=== PATIENT | female | born 1950 | race Caucasian/White ===

== ENCOUNTER 2019-03-12 07:12 | Outpatient (CLI) | payer MEDICARE, MEDICAID, SELFPAY ==
--- NOTE | 2019-03-12 07:23 | ECG_ITS ---
NAME OF STUDY: LEXISCAN SESTAMIBI STRESS TEST INDICATION: RM/CAROTID STENOSIS, PROCEDURE: At the baseline, the EKG revealed normal sinus rhythm with a normal ST-T's. The baseline blood pressure was 133/78 mm Hg with a heart rate of 60 beats/min. Lexiscan was infused over a period of 20 seconds. A total of 0.4 milligrams of Lexiscan was infused. The stress phase was continued for a total of 5 minutes. Heart rate at the end of the stress phase was 79 with a blood pressure 148/72. The EKG at the peak infusion revealed no significant changes. Sestamibi was injected 20 seconds after the Lexiscan infusion. Blood pressure at the end of the recovery phase was 143/68 with a heart rate of 77 per minute. CONCLUSION: 1. No significant EKG changes with the LexiScan infusion 2. No LexiScan induced chest pain or cardiac arrhythmia 3. Normal blood pressure and heart rate response 4. Sestamibi/sestamibi perfusion scan pending; see separate report. Electronically Signed On 03-13-2019 17:19:02 SERVICE DELIVERY MANAGEMENT CONSULTANT by Kenya Francis M.D. [id number]
--- NOTE | 2019-03-12 07:25 | NMCV_ITS ---
NM MIBI/MIBI Stress/Rest [id number] Constance Toussaint Age: 68 Gender: F : 1950 Exam Date: 03/12/2019 08:35 Ordering Phys: Kenya Francis MD ([email or web address]) Technologist: NAUN Zacarias Exam Location: [facility] Indications: Carotid Stenosis, dypsnea on excertion STRESS TEST Please [facility] for [facility] IMAGE PROTOCOL Rest/Stress 1 Lexiscan Day Radiopharmaceutical Dose (mCi) Administration Site Administered by Rest: Tc-99m 10.5 IV NAUN Zacarias Sestamibi Stress:Tc-99m 31.1 IV NAUN Zacarias Sestamibi Rest: 12-Mar-2019 60 Discovery 630 Stress: 12-Mar-2019 60 Discovery 630 0.4mg Lexiscan. Images obtained in supine and prone position. SPECT RESULTS Technical Quality: Good Raw Data Analysis: Normal, Breast attenuation. 38DD chest wall Image Corrections: No attenuation or motion correction applied Summed Stress Score: 0 Summed Rest Score: 2 Summed Difference Score: 0 PERFUSION FINDINGS Small area of slightly decreased tracer take was noted in the apical inferior wall region. No significant reversibility was noted in this region. FUNCTIONAL RESULTS (calculated via Gated SPECT) Stress Image LV EF (%): 76 Stress EDV (mL):83 TID: 1.11 Stress ESV (mL):20 FUNCTIONAL FINDINGS: Segmental wall motion analysis revealing no gross wall motion normalities IMPRESSIONS #1. Myocardial visually revealing a small area of persistent decreased tracer uptake in the apical anterior wall region, suggestive of myocardial scarring versus attenuation artifact. #2. Normal LV ejection fraction 76%. #3. LV wall motion analysis revealing no gross wall motion normalities. #4. Normal LV volume. No significant coronary ischemia, based on the above findings Dr Kenya Francis MD [facility] (Electronically Signed) Final Date: 12 March 2019 19:30 S
[2019-03-12 07:50] VITALS: BMI 29.2
[2019-03-12] MEDS: regadenoson 0.4 Mg/5 ml Syringe IVP (09:46)
[2019-03-12 09:48] VITALS: BP 143/68; PULSE 78
--- NOTE | 2019-03-12 12:45 | USCV_ITS ---
Constance Toussaint Age: 68 Gender: F : 1950 Exam Date: 03/12/2019 07:49 Ordering Phys: Kenya Francis MD ([email or web address]) Technologist: Sahil Eid [place] [facility] [place] [facility] [place]ication: CAROTID STENOSIS Risk Factors: Previous Vascular Surgery: Right Brachial BP: / Left Brachial BP: / Right Left Velocity (cm/s) Spectral Plaque Velocity (cm/s) Spectral Plaque Syst/Diast Broadening Syst/Diast Broadening 78.90/ 21.70 Prox CCA 76.30 / 19.60 74.90/ 15.80 Mid CCA 67.50 / 18.90 61.80/ 23.70 Distal CCA 54.30 / 17.00 45.40/ 17.10 Prox ICA 41.00 / 13.10 64.60/ 23.50 Mid ICA 64.40 / 19.40 51.20/ 21.40 Distal ICA 75.20 / 23.80 206.90 ECA 172.90 0.86 ICA/CCA 1.11 Antegrade Vertebral Antegrade 41.20/ 13.40 cm/s 50.10/ 17.50 cm/s Bi Subclavian Bi 73.80 58.10 FINDINGS Minimal plaques of the bifurcations and internal carotid arteries bilaterally. Antegrade flow in the vertebral arteries bilaterally. Elevated flow velocities in the external carotid arteries bilaterally CONCLUSIONS Minimal plaques of the bifurcations and internal carotid arteries bilaterally. Elevated flow velocities in the external carotid arteries bilaterally may suggest hemodynamically significant stenosis. No significant stenosis in the internal carotid arteries bilaterally, based on the above findings. Dr Kenya Francis MD [facility] (Electronically Signed) Final Date: 12 March 2019 19:41 S
== END 2019-03-12 07:13 | disposition home or self-care (01) ==
LOC: RAD 07:18
PROVIDERS: Family Provider Family Medicine; PCP Family Medicine; Visit Provider Internal Medicine Cardiovascular Disease
DX: I65.21 Occlusion and stenosis of right carotid artery (principal); R06.09 Other forms of dyspnea
CPT/HCPCS: 78452; 93017; 93880; A9500; J2785

== ENCOUNTER 2019-08-07 14:52 | Emergency (ER) | payer MEDICARE, MEDICAID, SELFPAY ==
--- NOTE | 2019-08-07 14:55 | XR_ITS ---
WS: [id number] XR knee RT 3V* [id number] REASON FOR EXAM: injury FINDINGS: Total knee replacement on the right satisfactory alignment. The hardware is well positioned . No evidence settling is seen. XR/XR knee RT 3V* [id number] IMPRESSION: Total knee replacement excellent alignment.
[2019-08-07 15:00] VITALS: BMI 29.7
[2019-08-07 15:03] VITALS: BP 132/75; PULSE 73; RESP 16; TEMP 36.8; O2SAT 95
--- NOTE | 2019-08-07 15:10 | W.ED.EXTPRO ---
HPI - Extremity Problem General: Chief complaint: Extremity Problem,Nontraumatic Stated complaint: R KNEE INJURY Time Seen by Provider: 08/07/19 15:00 Source: patient Mode of arrival: ambulatory Limitations: no limitations History of Present Illness: HPI Narrative: Patient comes in with right knee pain. Patient states that she felt a pop and then had pain to her right knee area when she went to get up earlier today. Patient appears well. Patient appears in no acute distress. Patient has a history of knee replacement in the right knee. Review of Systems General: Reports: 10 or more systems reviewed and unremarkable except in HPI and below Musc: Reports: joint pain (right knee) PFS ED PFSH: Family History (Updated 03/12/19 @ 07:43 by Rachel Park RN) Other CAD (coronary artery disease) Social History (Updated 03/12/19 @ 07:43 by Rachel Park RN) Smoking and tobacco status: former smoker Quit status (tobacco): has quit using tobacco Second hand smoke exposure: No Smoking risk assessment/counseling performed?: No Physical Exam Const: COMMON NORMALS: no acute distress and patient oriented x3 GENERAL APPEARANCE: cooperative HENMT: COMMON NORMALS: normocephalic, TM's normal bilaterally and Normal external nose present HEAD & SCALP: normal to inspection and normocephalic NOSE: Normal external nose present TYMPANIC MEMBRANE: TM's normal bilaterally MOUTH: Normal oral and palatal mucosa present THROAT: posterior oropharynx normal Eye: GENERAL EYE: appearance normal, both eyes and all related structures Neck/C-Spine: COMMON NORMALS: full ROM Lymph: LYMPHATIC: no lymphadenopathy noted Chest: COMMONS NORMALS: normal inspection of the chest Resp: COMMON NORMALS: normal respiratory effort EFFORT & INSPECTION: Yes able to speak in complete sentences Cardio: COMMON NORMALS: regular rate and regular rhythm RATE: regular rate RHYTHM: regular rhythm GI: COMMON NORMALS: non-tender : COMMON NORMALS: Yes no CVA tenderness BLADDER/KIDNEY EXAM: Yes no CVA tenderness Back/Pelvis: COMMON NORMALS: no CVA tenderness and thoracic and lumbar spine normal to inspection Extremity: NARRATIVE EXTREMITY EXAM: Right knee has normal range of motion. Patient does have some tenderness in the patella femoral tendon. No obvious swelling or ecchymosis is noted to the knee. Distal pulses and sensations are intact. Neuro: COMMON NORMALS: patient oriented x3 and moves all extremities Psych: COMMON NORMALS: mental status grossly normal and cooperative Skin: COMMON NORMALS: no rashes or lesions noted GENERAL SKIN EXAM: no rashes or lesions noted Course Vital Signs: Vital signs: Vital Signs Temperature 98.3 F 08/07/19 15:03 Pulse Rate 72 08/07/19 15:13 Respiratory Rate 16 08/07/19 15:13 Blood Pressure 159/80 08/07/19 15:13 Pulse Oximetry 97 08/07/19 15:13 MDM - Extremity (Nontraumatic) MDM Narrative: Medical decision making narrative: Patient comes in for evaluation of right knee pain. On exam patient has normal range of motion. No obvious swelling or ecchymosis is noted to the extremity. Differential diagnosis includes but not limited to tendinitis, derangement of knee replacement hardware, fracture, patellofemoral syndrome, dislocation of the patella. X-ray was negative for any abnormalities. Reviewed exam with patient feel that the patient probably has patellofemoral tendo pain or possibly a patellar dislocation that reduced on its own. Patient reports understanding of diagnosis and plan of care. Discharge Plan Discharge Patient Disposition: Home, Self-Care Clinical Impression: Knee pain, right Qualifiers: Chronicity: unspecified Qualified Code(s): M25.561 - Pain in right knee Patellar tendon strain Qualifiers: Encounter type: initial encounter Laterality: right Qualified Code(s): S86.811A - Strain of other muscle(s) and tendon(s) at lower leg level, right leg, initial encounter Condition: Stable Prescriptions: No Action Multiple Vitamins Tablet 1 tab PO DAILY RF: 0 hydrocodone-acetaminophen 10-325 mg tablet 1 tab PO TID PRN (Reason: Pain) RF: 0 Aspir-81 81 mg Tablet,Delayed Release (Dr/Ec) 81 mg PO DAILY RF: 0 amlodipine 10 mg tablet 10 mg PO DAILY RF: 0 metoprolol tartrate 50 mg tablet 50 mg PO BID RF: 0 vitamin B complex Tablet 1 tab PO DAILY RF: 0 gabapentin 100 mg capsule 100 mg PO TID RF: 0 lisinopril 40 mg tablet 40 mg PO DAILY RF: 0 rosuvastatin 20 mg tablet 20 mg PO BEDTIME RF: 0 Vitamin D3 25 mcg (1,000 unit) Tablet 25 mcg PO DAILY RF: 0 Belsomra 10 mg tablet 10 mg PO BEDTIME PRN (Reason: unknown) RF: 0 Discharge Orders: Discharge Order (Routine); Ordered 08/07/19 Ordered By: Segundo Hendricks Referrals: Del Galarza MD [Primary Care Provider] - Discharge Diet: Usual diet Discharge Activity: Increase activity as tolerated Activity Restrictions/Additional Instructions: Activity as tolerated. Drink plenty of water with medications. Use acetaminophen or ibuprofen for pain. Use ice or heat for further pain relief. Follow-up with primary care in 1 week for recheck. Return to the ER for high fever or worsening pain with redness and swelling, or new concerns. Coding Level of Care Code ED Polarity Tester for Chg Fwd Exam Comprehensive
[2019-08-07 15:13] VITALS: BP 159/80; PULSE 72; RESP 16; O2SAT 97
[2019-08-07 16:35] VITALS: BP 139/70; PULSE 68; RESP 16; O2SAT 96
== END 2019-08-07 16:36 | disposition home or self-care (01) ==
PROVIDERS: Emergency Provider Nurse Practitioner Family; Family Provider Family Medicine; PCP Family Medicine
DX: S76.111A Strain of right quadriceps muscle, fascia and tendon, initial encounter (principal); X58.XXXA Exposure to other specified factors, initial encounter; Z87.891 Personal history of nicotine dependence
CPT/HCPCS: 12345; 73562; 99282

== ENCOUNTER 2019-11-26 15:20 | Emergency (ER) | payer MEDICARE, MEDICAID, SELFPAY ==
[2019-11-26 15:28] VITALS: BP 180/81; PULSE 90; RESP 16; TEMP 36.9; O2SAT 92; BMI 28.6
--- NOTE | 2019-11-26 15:39 | XRR_ITS ---
PROCEDURE INFORMATION: Exam: XR Chest, 1 View Exam date and time: 11/26/2019 4:10 PM Age: 69 years old Clinical indication: Chest pain; Type not specified; Additional info: Cp TECHNIQUE: Imaging protocol: XR of the chest Views: 1 view. COMPARISON: CR Chest 1 [place] [id number] 04/11/2016 11:35 AM FINDINGS: Lungs: Unremarkable. No consolidation. Pleural space: Unremarkable. No pleural effusion. No pneumothorax. Heart/Mediastinum: Unremarkable. No cardiomegaly. Bones/joints: Unremarkable. XR/XR chest 1V portable [id number] IMPRESSION: No acute findings.
--- NOTE | 2019-11-26 15:39 | ECG_ITS ---
[facility] Test Date: 2019-11-26 Pat Name: Constance Toussaint Department: Room: Gender: Female Edge Inker: : 1950 Requested By: Delon Cordon Order Number: [id number] Mandy MD: Sravanthi Hickey M.D. Measurements Intervals [place] Rate: 86 P: 64 SD: 164 QRS: -1 QRSD: 74 T: 38 QT: 381 QTc: 456 Interpretive Statements SINUS RHYTHM WITH FREQUENT VENTRICULAR PREMATURE COMPLEXES IN A BIGEMINAL PATTERN LOW QRS VOLTAGE IN PRECORDIAL LEADS [QRS DEFLECTION < 1.0 mV IN CHEST LEADS] MINIMAL ST DEPRESSION [0.025+ mV ST DEPRESSION] Compared to ECG 10/02/2018 09:58:18 Ventricular premature complex(es) now present Low QRS voltage now present ST (T wave) deviation now present Electronically Signed On 11-27-2019 17:13:10 CDT by Sravanthi Hickey M.D. [id number]
--- NOTE | 2019-11-26 15:49 | W.ED.ARRPALP ---
HPI - Arrhythmia/Palpitations General: Chief Complaint: Arrhythmia/Palpitations Stated Complaint: palpitations, Low HR earlier Time Seen by Provider: 11/26/19 15:39 Source: patient Mode of arrival: ambulatory Limitations: no limitations History of Present Illness: HPI narrative: 69-year-old female states that over the last day she is felt like her heart rate is went up and down and is been getting very anxious over it. She states she has had palpitations and her heartbeat had went down to the 50s as well. Patient appears to be in bigeminy here at times. She denies any worsening improving factors. She denies any pain at this time. She denies any shortness of breath. Associated symptoms: Deny nausea or vomiting Review of Systems Const: Denies: fever(s), chills, body aches or change in appetite Eyes: Denies: blurry vision or eye discomfort ENMT: Denies: throat pain or dental pain Card: Reports: palpitations Resp: Denies: dyspnea GI: Denies: abdominal pain, nausea, vomiting or diarrhea : Denies: dysuria Musc: Denies: neck pain or back pain Skin/Breast: Denies: rash Neuro: Denies: headache(s) Psych: Denies: depression Cyril/Lymph: Denies: easy bruising All/Imm: Denies: urticaria PFSH ED PFSH: Surgical History History of arthroplasty of right knee Family History Other CAD (coronary artery disease) Social History Smoking and tobacco status: former smoker Quit status (tobacco): has quit using tobacco Second hand smoke exposure: No Smoking risk assessment/counseling performed?: No Alcohol intake: never Substance/Drug Use: never Physical Exam Const: COMMON NORMALS: no acute distress, patient oriented x3 and healthy appearing HENMT: COMMON NORMALS: normocephalic and atraumatic HEAD & SCALP: normocephalic and atraumatic Eye: COMMON NORMALS: Equal, round and reactive pupils present and EOMs intact bilaterally PUPIL: Yes Equal, round and reactive pupils present Neck/C-Spine: COMMON NORMALS: full ROM and supple Chest: COMMONS NORMALS: normal inspection of the chest and normal palpation of entire chest wall Resp: COMMON NORMALS: normal respiratory effort, No retractions, No use of accessory muscles and clear to auscultation bilaterally AUSCULTATION: clear to auscultation bilaterally Cardio: COMMON NORMALS: regular rate, regular rhythm and No murmurs present (Cardio) RATE: regular rate RHYTHM: regular rhythm GI: COMMON NORMALS: Normal to inspection, nondistended, normoactive bowel sounds present, Soft to palpation, non-tender and no masses PALPATION: Yes Soft to palpation Extremity: COMMON NORMALS: normal to inspection and full ROM Neuro: COMMON NORMALS: patient oriented x3, moves all extremities and no focal motor deficits Psych: COMMON NORMALS: mental status grossly normal, Normal thought process present and cooperative THOUGHT PROCESS: Normal thought process present Skin: COMMON NORMALS: no rashes or lesions noted and no wounds GENERAL SKIN EXAM: no rashes or lesions noted Course Vital Signs: Vital signs: Vital Signs Temperature 98.4 F 11/26/19 15:28 Pulse Rate 90 11/26/19 15:28 Respiratory Rate 16 11/26/19 15:28 Blood Pressure 180/81 11/26/19 15:28 Pulse Oximetry 92 11/26/19 15:28 MDM - Arrhythmia/Palpitations MDM Narrative: Medical decision making narrative: Patient presents with palpitations likely from her PVCs and being in bigeminy at times. On is negative and everything else is well-appearing here. Patient is stable for discharge and she is to follow-up with Dr. Francis in 3 to 5 days. She feels improved. Patient is to return if worsening. Lab Data: Labs: Lab Results 11/26/19 11/26/19 11/26/19 Range/Units 16:04 16:04 16:04 WBC 11.6 H (4.0-10.0) 10^3/ uL RBC 4.92 (4.1-5.3) 10^6/u L Hgb 14.3 (11.5-15.3) g/dL Hct 44.2 (37.0-47.0) % MCV 89.8 (81-99) fL MCH 29.1 (28.0-34.0) pg MCHC 32.4 (30.0-36.0) g/dL RDW 12.2 (12.1-15.1) % Plt Count 223 (130-400) 10^3/c mm MPV 11.2 H (7.4-10.4) fL Neut % (Auto) 59.9 % Lymph % (Auto) 31.1 % [place] % (Auto) 7.4 % Eos % (Auto) 1.0 % Baso % (Auto) 0.3 % Neut # (Auto) 6.92 (1.8-7.7) 10^3/u L Lymph # (Auto) 3.6 (0.8-4.8) 10^3/u L [place] # (Auto) 0.9 (0.2-0.9) 10^3/u L Eos # (Auto) 0.1 (0.0-0.8) 10^3/u L Baso # (Auto) 0.0 (0.0-0.1) 10^3/u L Nucleated RBC % (a uto) 0 % Nucleated RBCs # 0.0 /100WBC PT 12.60 (12.1-14.9) SECO NDS INR 0.92 (0.8-1.2) Sodium 141 (136-145) mmol/L Potassium 3.4 L (3.5-5.1) mmol/L Chloride 105 (98-107) mmol/L Carbon Dioxide 25 (22-29) mmol/L Anion Gap 14.4 (5-19) BUN 11 (8-23) mg/dL Creatinine 0.6 (0.5-0.9) mg/dL GFR Calculation 99.4 (90-130) mL/min Glucose 111 (65-115) mg/dL Calculated Osmolal ity 292 (285-295) mOsm/k g Calcium 10.0 (8.5-10.5) mg/dL Total Bilirubin 0.2 (0.15-1.2) mg/dL AST 26 (0-32) U/L ALT 24 (0-33) U/L Alkaline Phosphata se 97 (35-105) IU/L Troponin T Baselin e (0-10) ng/L NT-Pro-B Natriuret Pep 61 (0-125) pg/mL Total Protein 7.2 (6.6-8.7) g/dL Albumin 4.1 (3.5-5.2) g/dL Globulin 3.1 (1.3-4.6) g/dL 11/26/19 Range/Units 16:04 WBC (4.0-10.0) 10^3/ uL RBC (4.1-5.3) 10^6/u L Hgb (11.5-15.3) g/dL Hct (37.0-47.0) % MCV (81-99) fL MCH (28.0-34.0) pg MCHC (30.0-36.0) g/dL RDW (12.1-15.1) % Plt Count (130-400) 10^3/c mm MPV (7.4-10.4) fL Neut % (Auto) % Lymph % (Auto) % [place] % (Auto) % Eos % (Auto) % Baso % (Auto) % Neut # (Auto) (1.8-7.7) 10^3/u L Lymph # (Auto) (0.8-4.8) 10^3/u L [place] # (Auto) (0.2-0.9) 10^3/u L Eos # (Auto) (0.0-0.8) 10^3/u L Baso # (Auto) (0.0-0.1) 10^3/u L Nucleated RBC % (a uto) % Nucleated RBCs # /100WBC PT (12.1-14.9) SECO NDS INR (0.8-1.2) Sodium (136-145) mmol/L Potassium (3.5-5.1) mmol/L Chloride (98-107) mmol/L Carbon Dioxide (22-29) mmol/L Anion Gap (5-19) BUN (8-23) mg/dL Creatinine (0.5-0.9) mg/dL GFR Calculation (90-130) mL/min Glucose (65-115) mg/dL Calculated Osmolal ity (285-295) mOsm/k g Calcium (8.5-10.5) mg/dL Total Bilirubin (0.15-1.2) mg/dL AST (0-32) U/L ALT (0-33) U/L Alkaline Phosphata se (35-105) IU/L Troponin T Baselin e 6 (0-10) ng/L NT-Pro-B Natriuret Pep (0-125) pg/mL Total Protein (6.6-8.7) g/dL Albumin (3.5-5.2) g/dL Globulin (1.3-4.6) g/dL EKG Data^: EKG 1: Attestation: I personally reviewed and interpreted this EKG as follows: EKG interpretation date: 11/26/19 EKG interpretation time: 15:44 Interpretation: Normal sinus rhythm heart rate 86 with frequent PVCs in a bigeminal pattern no ST or T wave abnormalities QRS 74 QTC 424 Other EKG comments: Chest X-Ray 11/26/19 15:39 IMPRESSION: No acute findings. Discharge Plan Discharge Patient Disposition: Home Clinical Impression: Palpitations Condition: Stable Prescriptions: No Action multivitamin [Multiple Vitamins] Tablet 1 tab PO DAILY RF: 0 hydrocodone-acetaminophen 10-325 mg tablet 1 tab PO QID PRN (Reason: Pain) RF: 0 aspirin [Aspir-81] 81 mg Tablet,Delayed Release (Dr/Ec) 81 mg PO DAILY RF: 0 amlodipine 10 mg tablet 10 mg PO DAILY RF: 0 metoprolol tartrate 50 mg tablet 50 mg PO BID RF: 0 vitamin B complex Tablet 1 tab PO DAILY RF: 0 gabapentin 100 mg capsule 100 mg PO TID RF: 0 lisinopril 40 mg tablet 40 mg PO DAILY RF: 0 rosuvastatin 20 mg tablet 20 mg PO BEDTIME RF: 0 cholecalciferol (vitamin D3) [Vitamin D3] 25 mcg (1,000 unit) Tablet 25 mcg PO DAILY RF: 0 Belsomra 10 mg tablet 10 mg PO BEDTIME PRN (Reason: unknown) RF: 0 gabapentin 300 mg Capsule 300 mg PO BID RF: 0 melatonin 10 mg Tablet 10 mg PO BEDTIME RF: 0 Discharge Orders: Discharge Order (Routine); Ordered 11/26/19 Ordered By: Delon Cordon Referrals: Kenya Francis MD [Physician] - 1-3 days Del Galarza MD [Primary Care Provider] - Discharge Diet: Advance as tolerated Discharge Activity: Resume usual activity Patient Instructions: Palpitations (ED) Coding Level of Care Code ED Engineering Manager Electronics for Chg Fwd Exam Comprehensive
[2019-11-26 16:11] LABS: Basophils % 0.3 %; Eosinophils # 0.1 10^3/uL (0.0-0.8); Hematocrit 44.2 % (37.0-47.0); Hemoglobin 14.3 g/dL (11.5-15.3); Lymphocytes # 3.6 10^3/uL (0.8-4.8); Lymphocytes % 31.1 %; Mean Corpuscular HGB Conc 32.4 g/dL (30.0-36.0); Mean Corpuscular Hemoglobin 29.1 pg (28.0-34.0); Mean Corpuscular Volume 89.8 fL (81-99); Mean Platelet Volume 11.2 fL (7.4-10.4); Monocytes # 0.9 10^3/uL (0.2-0.9); Monocytes % 7.4 %; Neutrophils # 6.92 10^3/uL (1.8-7.7); Neutrophils % 59.9 %; Nucleated Red Blood Cells % 0 %; Platelet Count 223 10^3/cmm (130-400); Red Blood Count 4.92 10^6/uL (4.1-5.3); Red Cell Distribution Width 12.2 % (12.1-15.1); White Blood Count 11.6 10^3/uL (4.0-10.0)
[2019-11-26 16:27] LABS: INR 0.92 (0.8-1.2)
[2019-11-26 16:38] LABS: Troponin(5th) Baseline 6 ng/L (0-10)
[2019-11-26 16:45] LABS: Alanine Aminotransferase 24 U/L (0-33); Albumin Level 4.1 g/dL (3.5-5.2); Alkaline Phosphatase 97 IU/L (35-105); Anion Gap 14.4 (5-19); Aspartate Amino Transferase 26 U/L (0-32); Blood Urea Nitrogen 11 mg/dL (8-23); Carbon Dioxide 25 mmol/L (22-29); Chloride 105 mmol/L (98-107); Globulin 3.1 g/dL (1.3-4.6); Glomerular Filtration Rate 99.4 mL/min (90-130); Glucose 111 mg/dL (65-115); NT Pro B Type Natriuretic Pept 61 pg/mL (0-125); Osmolality Calculated 292 mOsm/kg (285-295); Potassium 3.4 mmol/L (3.5-5.1); Sodium 141 mmol/L (136-145); Total Bilirubin 0.2 mg/dL (0.15-1.2); Total Protein 7.2 g/dL (6.6-8.7)
[2019-11-26 17:19] VITALS: BP 123/73; PULSE 86; RESP 14; O2SAT 93
--- NOTE | 2019-11-27 12:21 | DCPLANNER ---
environmental health safety manager had message to schedule a follow up appointment for patient with [facility]. Patient has a follow up appointment for Sunday, November 28, 2019 at 8:30 with [facility]. Clinic will contact patient with appointment information.
--- NOTE | 2019-12-09 15:39 | DCPLANNER ---
Patient had a follow up appointment scheduled for 11.28.19 with [facility] - patient did attend appointment.
== END 2019-11-26 17:19 | disposition home or self-care (01) ==
PROVIDERS: Emergency Provider Emergency Medicine; PCP Family Medicine
DX: R00.2 Palpitations (principal); Z79.82 Long term (current) use of aspirin; Z87.891 Personal history of nicotine dependence
CPT/HCPCS: 12345; 36415; 71045; 80053; 83880; 84484; 85025; 85610; 93005; 99282; 99283

== ENCOUNTER 2019-12-16 13:50 | Outpatient (CLI) | payer MEDICARE, MEDICAID, SELFPAY ==
--- NOTE | 2019-12-16 | USCV_ITS ---
Constance Toussaint Age: 69 Gender: F : 1950 Exam Date: 12/16/2019 14:23 Ordering Phys: Del Galarza MD Technologist: Lorin Price Exam Location: [facility] [place] Indication: Palpitations BP: 141 / 66 HR: 61 Rhythm: Sinus Technical Quality: Adequate MEASUREMENTS (Male / Female) Normal Values 2D ECHO LV Diastolic Diameter PLAX 3.3 cm 4.2 - 5.9 / 3.9 - 5.3 cm LV Systolic Diameter PLAX 1.9 cm LV Chamber Size 4.1 cm IVS Diastolic Thickness 1.2 cm 0.6 - 1.0 / 0.6 - 0.9 cm IVS Systolic Thickness 1.4 cm LVPW Diastolic Thickness 1.0 cm 0.6 - 1.0 / 0.6 - 0.9 cm LVPW Systolic Thickness 1.0 cm RV Chamber Size 2.3 cm LVOT Diameter 1.8 cm LV Ejection Fraction 2D Teich 74.1 % LV Ejection Fraction MOD 2C 69.5 % LV Ejection Fraction 2C AL 68.4 % LA Diameter 2.9 cm LA Width 3.1 cm LA Height 5.5 cm RA Width 2.5 cm RA Height 4.2 cm Aorta at Sinotubular Diameter 2.1 cm M-MODE LV Diastolic Diameter MM 3.9 cm 4.2 - 5.9 / 3.9 - 5.3 cm LV Systolic Diameter MM 2.4 cm LV Ejection Fraction MM Teich 68.8 % IVS Diastolic Thickness MM 1.4 cm 0.6 - 1.0 / 0.6 - 0.9 cm IVS Systolic Thickness MM 1.7 cm LVPW Diastolic Thickness MM 1.1 cm 0.6 - 1.0 / 0.6 - 0.9 cm LVPW Systolic Thickness MM 1.4 cm Aortic Annulus Diameter 3.0 cm LA Ao Ratio MM 1.1 MV E Point Septal Separation 0.4 cm DOPPLER AV Peak Velocity 144.0 cm/s LVOT Peak Velocity 103.0 cm/s AV Area Cont Eq vti 2.0 cm squared AV Area Cont Eq pk 1.8 cm squared MV Area PHT 4.1 cm squared Mitral E to A Ratio 0.9 MV E' Velocity 49.5 cm/s Mitral E to MV E' Ratio 9.6 Mitral E to LV E' Lateral Ratio 8.2 Mitral E to LV E' Septal Ratio 11.6 TR Peak Velocity 237.5 cm/s TR Peak Gradient 22.6 mmHg TV Peak E Velocity 44.0 cm/s Right Atrial Pressure 3.0 mmHg Pulmonary Artery Systolic Pressu 25.6 mmHg PV Peak Velocity 65.0 cm/s RV Acceleration Time 0.1 s RV Ejection Time 0.3 s RV AcT/ET 0.2 FINDINGS Left Ventricle Normal left ventricular size, systolic function and wall thickness, with no regional wall motion abnormalities. LVEF is 55 to 60%. Normal left ventricular wall thickness. Normal diastolic filling pattern. Right Ventricle The right ventricle is normal in size and function. Right Atrium The right atrium is normal in size. Left Atrium The left atrium is normal in size. Mitral Valve Thickened mitral valve without significant stenosis or prolapse. There is trace mitral regurgitation. Aortic Valve Thickened aortic valve. No evidence of aortic stenosis.. There is no aortic regurgitation. Tricuspid Valve Structurally normal tricuspid valve without significant stenosis. Mild tricuspid regurgitation is noted. This P is 25 to 30 mmHg. Pulmonic Valve Structurally normal pulmonic valve without significant stenosis. There is no pulmonic regurgitation. Pericardium Normal pericardium without effusion. Aorta Normal ascending aorta dimension. CONCLUSIONS LV systolic function is normal with EF of 55 to 60%. Normal diastolic function. Mild tricuspid regurgitation and trace mitral regurgitation. Aortic and mitral valves. Compared to prior echocardiogram from 01/25/2018, no significant changes are noted. Francisco Zuleta MD (Electronically Signed) Final Date: 16 December 2019 17:29 S
== END 2019-12-16 13:51 | disposition home or self-care (01) ==
LOC: US 13:50
PROVIDERS: PCP Family Medicine; Visit Provider Family Medicine
DX: R00.2 Palpitations (principal); I08.1 Rheumatic disorders of both mitral and tricuspid valves
CPT/HCPCS: 93306

== ENCOUNTER 2020-03-19 12:35 | Outpatient (CLI) | payer MEDICARE, MEDICAID, SELFPAY ==
--- NOTE | 2020-03-19 12:46 | CT_ITS ---
WS: [id number] CT NECK WITH CONTRAST HISTORY: SUBCUTANEOUS NODULE OF NECK TECHNIQUE: Contiguous 5 mm axial images are performed through the neck with intravenous contrast. Sag ittal and coronal reformats are also submitted. All CT scans at [facility] use at least o ne of these dose optimization techniques: automated exposure control; mA and/or kV adjustment per pat ient size (includes targeted exams where dose is matched to clinical indication); or iterative recons truction. CONTRAST: CONTRAST: Omnipaque 300; 95 mL IV. DLP: 2596.12 mGycm COMPARISON: 02/22/2017 and 10/24/2013 Marker is placed over the lateral LEFT neck at the area of the palpable abnormality. Marker correspon ds to a normal-appearing sternocleidomastoid muscle. There are a few small benign lymph nodes along t he cervical chain. Nasopharynx, oropharynx, hypopharynx and larynx are unremarkable. No soft tissue masses or abnormal e nhancement. Torus tubarius and fossa of Rosenmuller and parapharyngeal fat are normal. Small bilateral benign cervical chain lymph nodes. Thyroid gland and salivary glands are normally enhancing with no masses. Anterior cervical fusion from C3 to C5. Complete fusion across the C3-4 and C4-5 disc spaces. Visualized portions of the skull base demonstrate no abnormalities. Orbits and globes are within norm al limits. No soft tissue masses. Mild calcified plaque at the carotid bifurcations. Prior lacunar in farct in the RIGHT caudate head. Visualized paranasal sinuses and mastoid air cells are normal. Lung apices are clear. CT/CT neck w con* [id number] IMPRESSION: 1. No lymphadenopathy or neck mass identified. No thyroid nodule. 2. Mild atherosclerotic plaque at the carotid bifurcations.
[2020-03-19] MEDS: iohexol 300 mg/mL 100 mL Btl IV (13:04)
== END 2020-03-19 12:36 | disposition home or self-care (01) ==
LOC: RADWPI 12:41
PROVIDERS: PCP Family Medicine; Visit Provider Family Medicine
DX: R22.1 Localized swelling, mass and lump, neck (principal); I65.23 Occlusion and stenosis of bilateral carotid arteries
CPT/HCPCS: 70491; Q9967

== ENCOUNTER 2020-08-25 15:08 | Outpatient (CLI) | payer MEDICARE, MEDICAID, SELFPAY ==
--- NOTE | 2020-08-25 15:16 | MM_ITS ---
WS: [id number] BILATERAL SCREENING DIGITAL MAMMOGRAM WITH CAD HISTORY: SCREENING COMPARISON: 2018 and 12/26/2017 Bilateral CC and MLO views submitted. Computer aided detection analyzed. Breast composition: There are scattered areas of fibroglandular density. No suspicious masses, microc alcifications or architectural distortion. Stable intramammary lymph node 9:00 RIGHT breast. There ar e a few benign scattered calcifications. MM/[place] [id number] IMPRESSION: BI-RADS: 2-Benign FOLLOW UP: 1 Year Follow-up
== END 2020-08-25 15:09 | disposition home or self-care (01) ==
PROVIDERS: PCP Family Medicine; Visit Provider Nurse Practitioner
DX: Z12.31 Encounter for screening mammogram for malignant neoplasm of breast (principal)
CPT/HCPCS: 77067

== ENCOUNTER 2020-09-17 06:58 | Emergency (ER) | payer MEDICARE, MEDICAID, SELFPAY ==
[2020-09-17 07:20] VITALS: BP 138/86; PULSE 99; RESP 15; TEMP 37.2; O2SAT 97; BMI 27.8
--- NOTE | 2020-09-17 07:35 | XR_ITS ---
WS: [id number] Portable AP upright chest, 09/17/2020 Clinical Data: dyspnea/cough Comparison: Portable chest, 11/26/2019. Findings: No nodules, masses or effusions are seen. The heart is normal. The pulmonary vascularity is not increased. No pneumonia or pneumothorax is seen. The aortic arch and descending aorta show minim al calcification and tortuosity. XR/XR chest 1V portable [id number] Impression: Atherosclerosis.
--- NOTE | 2020-09-17 07:50 | W.ED.COVID ---
HPI - COVID General: Chief Complaint: COVID symptoms Stated Complaint: N/V FEVER, SOB Time Seen by Provider: 09/17/20 07:12 Triage information: Has fever, cough or shortness of breath. Exposure to COVID + person last 14 days History of Present Illness: HPI Narrative: 70-year-old female presents emergency room complaining of nausea vomiting fever myalgias shortness of breath nonproductive cough and diarrhea that began approximately 5 days ago. Her daughter tested positive for Covid. She had increasing symptoms since the onset. She does have a history of hypertension as well. MD complaint: has COVID symptoms Prior covid testing: yes, results known (Rapid negative at local clinic) Prior testing date: 09/14/20 COVID 19 common symptoms: positive fever(s), chills, cough, non-productive cough, dyspnea, fatigue, body aches, loss of sense of smell and/or taste, throat pain, nasal congestion, nausea, vomiting and diarrhea COVID 19 other sytmptoms: negative chest pain Onset (ago): day(s) (5) Severity: mild Pertinent comorbid conditions: diabetes Treatment prior to arrival: none COVID Results: SARS-CoV-2 Antigen (Rapid) Negative (Negative) 09/17/20 08:09 09/17/20 SARS-CoV-2 RNA (RT-PCR) Pending 09/17/20 07:43 09/17/20 Review of Systems Const: Reports: fever(s), chills, body aches and fatigue ENMT: Reports: throat pain and nasal congestion Card: Denies: chest pain, edema, dyspnea on exertion or orthopnea Resp: Reports: dyspnea and non-productive cough GI: Reports: nausea, vomiting and diarrhea : Denies: flank pain, difficulty voiding, dysuria, urinary frequency or urinary urgency Skin/Breast: Denies: rash or pruritus PFSH ED PFSH: Medical History Carotid stenosis RM (dyspnea on exertion) History of CVA (cerebrovascular accident) Hx of tuberculosis Hyperlipemia, mixed Hypertension Paroxysmal cardiac arrhythmia Pulmonary hypertension Ventricular arrhythmia Surgical History H/O: hysterectomy History of arthroplasty of right knee History of back surgery Hx of appendectomy Hx of cholecystectomy Family History Mother CAD (coronary artery disease) Father CAD (coronary artery disease) Brother CAD (coronary artery disease) Stroke Daughter Cancer Sister Dementia Denies family history of Diabetes Clotting disorder Chronic kidney disease (CKD) Suicide Anesthesia complication Bleeding disorder Lung disease Social History Smoking and tobacco status: former smoker Quit status (tobacco): has quit using tobacco Second hand smoke exposure: No Smoking risk assessment/counseling performed?: No Alcohol intake: never Physical Exam Const: COMMON NORMALS: no acute distress GENERAL APPEARANCE: cooperative and comfortable ORIENTATION/CONSCIOUSNESS: Yes awake, Yes oriented to person, Yes oriented to place and Yes oriented to time HENMT: COMMON NORMALS: normocephalic, atraumatic, hearing grossly normal bilaterally, external ears normal, EAC's normal, TM's normal bilaterally, Normal nasal mucous membranes and turbinates present, moist oral mucous membranes and oropharynx normal HEAD & SCALP: normocephalic and atraumatic NOSE: Normal nasal mucous membranes and turbinates present EXTERNAL EAR: Yes external ears normal EXTERNAL AUDITORY CANAL: EAC's normal TYMPANIC MEMBRANE: TM's normal bilaterally Eye: COMMON NORMALS: Equal, round and reactive pupils present, EOMs intact bilaterally, conjunctivae normal and no scleral icterus CONJUNCTIVA: Yes conjunctivae normal PUPIL: Yes Equal, round and reactive pupils present Neck/C-Spine: COMMON NORMALS: full ROM, no lymphadenopathy, supple and no JVD Lymph: LYMPHATIC: no lymphadenopathy noted and no lymphedema noted Resp: COMMON NORMALS: normal respiratory effort, No retractions, No use of accessory muscles and clear to auscultation bilaterally AUSCULTATION: clear to auscultation bilaterally Cardio: COMMON NORMALS: no JVD, regular rate, regular rhythm and No murmurs present (Cardio) RATE: regular rate RHYTHM: regular rhythm GI: COMMON NORMALS: Soft to palpation and No hepatosplenomegaly present AUSCULTATION: Yes normoactive bowel sounds PALPATION: Yes Soft to palpation, No Tenderness to palpation present (GI), No Guarding due to palpation present (GI) and Yes No hepatosplenomegaly present Extremity: COMMON NORMALS: normal to inspection, capillary refill normal, no clubbing, cyanosis or edema, no calf tenderness and no pedal edema Neuro: SENSORIUM/ORIENTATION: Yes oriented to person, Yes oriented to place and Yes oriented to time Skin: COMMON NORMALS: no rashes or lesions noted GENERAL SKIN EXAM: no rashes or lesions noted Course Vital Signs: Vital signs: Vital Signs Temperature 98.9 F 09/17/20 07:20 Pulse Rate 99 09/17/20 07:20 Respiratory Rate 15 09/17/20 07:20 Blood Pressure 138/86 09/17/20 07:20 Pulse Oximetry 97 09/17/20 07:20 MDM - COVID MDM Narrative: Medical decision making narrative: Rapid Covid negative. Based on her history I do believe she does have Covid but she is outside the window for the rapid to be positive. Organ to go ahead and give her some Zofran to use as needed her oxygen sats are good did discuss her monoclonal antibodies if she test positive she would like to have the infusion will contact her when we get the result. Lab Data: Labs: Lab Results 09/17/20 Range/Units 08:09 SARS-CoV-2 Ag (Rap id) Negative (Negative) COVID Results: SARS-CoV-2 Antigen (Rapid) Negative (Negative) 09/17/20 08:09 09/17/20 SARS-CoV-2 RNA (RT-PCR) Pending 09/17/20 07:43 09/17/20 Discharge Plan Discharge Patient Disposition: Home Clinical Impression: COVID-19 Condition: Stable Prescriptions: New Zofran 4 mg tablet 4 mg PO Q6H PRN (Reason: nausea and vomiting) Qty: 15 RF: 0 No Action magnesium L-lactate [Magtab] 84 mg tablet extended release 84 mg PO BID 30 Days Qty: 60 RF: 5 multivitamin [Multiple Vitamins] Tablet 1 tab PO DAILY RF: 0 hydrocodone-acetaminophen 10-325 mg tablet 1 tab PO QID PRN (Reason: Pain) RF: 0 aspirin [Aspir-81] 81 mg Tablet,Delayed Release (Dr/Ec) 81 mg PO DAILY RF: 0 amlodipine 10 mg tablet 10 mg PO DAILY RF: 0 metoprolol tartrate 50 mg tablet 50 mg PO BID RF: 0 vitamin B complex Tablet 1 tab PO DAILY RF: 0 lisinopril 40 mg tablet 40 mg PO DAILY RF: 0 rosuvastatin 20 mg tablet 20 mg PO BEDTIME RF: 0 cholecalciferol (vitamin D3) [Vitamin D3] 25 mcg (1,000 unit) Tablet 25 mcg PO DAILY RF: 0 Belsomra 10 mg tablet 15 mg PO BEDTIME PRN (Reason: unknown) RF: 0 melatonin 10 mg Tablet 10 mg PO BEDTIME RF: 0 gabapentin 300 mg capsule 300 mg PO TID RF: 0 Discharge Orders: Discharge ED (Routine); Ordered 09/17/20 Ordered By: Ludwig Beal Referrals: Del Galarza MD [Primary Care Provider] - Discharge Diet: Usual diet Discharge Activity: Increase activity as tolerated Patient Instructions: Opioid Safety Activity Restrictions/Additional Instructions: Follow-up with your doctor as needed return if you have worsening problems. Coding Level of Care Code ED Manufacturing Business Analyst for [employer] Fwd Exam Comprehensive
[2020-09-17 09:06] LABS: SARS Covid-2 Antigen Negative (Negative)
[2020-09-17 09:27] VITALS: PULSE 101; O2SAT 96
[2020-09-17 10:08] VITALS: PULSE 89; O2SAT 95
[2020-09-19 01:32] LABS: Quest SARS-CoV-2 RNA NOT DETECTED (NOT DETECTED)
--- NOTE | 2020-09-19 08:31 | PC.NURSE ---
left message for pt to call back to receive COVID results
--- NOTE | 2020-09-19 09:36 | PC.NURSE ---
pt called with COVID negative result. pt verified by name and birthdate.
== END 2020-09-17 10:09 | disposition home or self-care (01) ==
PROVIDERS: Emergency Provider Family Medicine; PCP Family Medicine
DX: U07.1 COVID-19 (principal); Z79.82 Long term (current) use of aspirin; Z86.73 Personal history of transient ischemic attack (TIA), and cerebral infarction without residual deficits; E78.2 Mixed hyperlipidemia; I10 Essential (primary) hypertension; Z87.891 Personal history of nicotine dependence
CPT/HCPCS: 71045; 87426; 87635; 99282

== ENCOUNTER 2020-11-04 13:13 | Outpatient (RCR) | payer MEDICARE, MEDICAID, SELFPAY | END 2020-12-02 23:59 | disposition home or self-care (01) | LOC: SPT 13:13 | PROVIDERS: PCP Family Medicine; Referring Provider Family Medicine; Visit Provider Family Medicine | DX: S46.811A Strain of other muscles, fascia and tendons at shoulder and upper arm level, right arm, initial encounter (principal); X58.XXXA Exposure to other specified factors, initial encounter | CPT/HCPCS: 97110; 97162 ==

== ENCOUNTER 2020-12-03 06:00 | Outpatient (RCR) | payer MEDICARE, MEDICAID, SELFPAY | END 2021-01-02 23:59 | disposition home or self-care (01) | LOC: SPT 06:00 | PROVIDERS: PCP Family Medicine; Referring Provider Family Medicine; Visit Provider Family Medicine | DX: S46.811D Strain of other muscles, fascia and tendons at shoulder and upper arm level, right arm, subsequent encounter (principal); X58.XXXD Exposure to other specified factors, subsequent encounter | CPT/HCPCS: 97110 ==

== ENCOUNTER 2021-01-12 09:33 | Emergency (ER) | payer MEDICARE, MEDICAID, SELFPAY ==
[2021-01-12] VITALS (8 sets, daily range): BP systolic 128–158; BP diastolic 59–81; PULSE 90–98; RESP 14; TEMP 37.2; O2SAT 91–99; BMI 24.9
--- NOTE | 2021-01-12 09:42 | ECG_ITS ---
[facility] Test Date: 2021-01-12 Pat Name: Constance Toussaint Department: Room: Gender: Female Operations Dispatcher: : 1950 Requested By: Ludwig Mehta Order Number: [id number] Mandy MD: Kenya Francis M.D. Measurements Intervals [place] Rate: 99 P: 66 CA: 180 QRS: 30 QRSD: 80 T: 50 QT: 343 QTc: 440 Interpretive Statements SINUS RHYTHM POSSIBLE LEFT ATRIAL ENLARGEMENT [-0.1mV P-WAVE IN V1/V2] SEPTAL MYOCARDIAL INFARCTION , OF INDETERMINATE AGE [40+ ms Q WAVE IN V1/V2] Compared to ECG 11/26/2019 15:36:40 Myocardial infarct finding now present Ventricular premature complex(es) no longer present ST (T wave) deviation no longer present Electronically Signed On 01-12-2021 20:41:42 FINANCIAL MANAGEMENT ANALYST by Kenya Francis M.D. [email or web address] county [email or web address] general [email or web address]/store/[id number]
[2021-01-12 10:17] LABS: Basophils % 0.3 %; Hematocrit 47.8 % (37.0-47.0); Hemoglobin 15.8 g/dL (11.5-15.3); Lymphocytes # 2.3 10^3/uL (0.8-4.8); Lymphocytes % 15.8 %; Mean Corpuscular HGB Conc 33.1 g/dL (30.0-36.0); Mean Corpuscular Volume 90.7 fl (81-99); Mean Platelet Volume 11.9 fL (7.4-10.4); Monocytes # 0.4 10^3/uL (0.2-0.9); Monocytes % 2.7 %; Neutrophils # 11.55 10^3/uL (1.8-7.7); Neutrophils % 80.7 %; Nucleated Red Blood Cells % 0 %; Platelet Count 284 10^3/cmm (130-400); Red Blood Count 5.27 10^6/uL (4.1-5.3); Red Cell Distribution Width 13.1 % (12.1-15.1); White Blood Count 14.3 10^3/uL (4.0-10.0)
[2021-01-12] MEDS: sodium chloride 0.9% 1,000 ML 999 ML IV (10:26)
[2021-01-12] MEDS: promethazine 25 mg/mL SDV 1 mL 12.5 MG IM (10:26)
[2021-01-12 10:44] LABS: Troponin(5th) Baseline 11 ng/L (0-10)
[2021-01-12 10:49] LABS: Alanine Aminotransferase 16 U/L (0-33); Albumin Level 4.7 g/dL (3.5-5.2); Alkaline Phosphatase 73 IU/L (35-105); Anion Gap 18.6 (5-19); Blood Urea Nitrogen 14 mg/dL (8-23); Calcium 9.8 mg/dL (8.5-10.5); Carbon Dioxide 26 mmol/L (22-29); Chloride 98 mmol/L (98-107); Creatinine Clr Calc Pharmacy 61.9514; Globulin 3.2 g/dL (1.3-4.6); Glomerular Filtration Rate 99.1 mL/min (90-130); Osmolality Calculated 290 mOsm/kg (285-295); Potassium 3.6 mmol/L (3.5-5.1); Sodium 139 mmol/L (136-145); Total Bilirubin 0.5 mg/dL (0.15-1.2); Total Protein 7.9 g/dL (6.6-8.7)
[2021-01-12 10:53] LABS: Creatine Phosphokinase 290 U/L (26-192); Glucose 119 mg/dL (65-115)
[2021-01-12 10:53] LABS: Urine Appearance Clear (CLEAR); Urine Color Yellow (Yellow); pH Urine 7 (5-7)
[2021-01-12 10:54] LABS: Add Urine Microscopic? YES; Bilirubin Urine Neg (Negative); Blood Urine Neg (Negative); Glucose Urine UA Norm (Normal); Ketones Urine 2+ (Negative); Leukocyte Esterase Urine Negative (Negative); Nitrate Urine Negative (Negative); Protein Urine Trace (Negative); Specific Gravity, Urine 1.015 (1.005-1.030); Urobilinogen Urine Norm (Negative)
[2021-01-12 10:54] LABS: Aspartate Amino Transferase 33 U/L (0-32)
[2021-01-12 10:55] LABS: Add Urine Culture? No; Amorphous Sediment Urine 1+ /hpf; Bacteria Urine TRACE /hpf; Mucus Urine 1+ /hpf; RBC Urine 0-4 /hpf (0-2); Squamous Epithelial Cell Urine 0-4 /hpf (0-5)
--- NOTE | 2021-01-12 10:57 | PC.PHAR ---
pt states she takes care of her own medications-pt states she tried to take her medications this am but states she threw them up after taking-notes are made in the pharmacy comments
--- NOTE | 2021-01-12 11:22 | W.ED.CHESTPA ---
HPI - Chest Pain General: Chief Complaint: Chest Pain Stated Complaint: NAUSEA/ VOMITING Time Seen by Provider: 01/12/21 09:34 History of Present Illness: HPI narrative: 70-year-old female presents emergency room complaining of fever nausea and vomiting that started on Sunday. She has some chest discomfort epigastric discomfort. She has had significant nausea with some retching. She denies any hematemesis or coffee-ground emesis denies any medic easy or melena. Patient does use marijuana daily and has for the last 40 years. She denies any pain radiating to her neck or arms. She is had worsening of this recently. She denies any cough or productive cough. MD complaint: chest pain Onset (ago): hour(s) Timing of current episode: episodic Onset: during rest Pain location: substernal and left chest Pain radiation: none Severity: moderate Quality: aching Relieving factors: nothing Exacerbating factors: nothing Associated symptoms: Reports fever(s), nausea and vomiting; Deny abdominal pain, diaphoresis, dyspnea, leg edema, palpitations, sense of impending doom or syncope Treatment prior to arrival: none Review of Systems Const: Reports: fever(s); Denies: diaphoresis ENMT: Denies: throat pain, ear or mastoid pain, nasal discharge or nasal congestion Card: Denies: palpitations or syncope Resp: Denies: dyspnea GI: Reports: nausea and vomiting; Denies: abdominal pain : Denies: flank pain, difficulty voiding, dysuria, urinary frequency or urinary urgency Skin/Breast: Denies: rash or pruritus PFS ED PFSH: Medical History Carotid stenosis RM (dyspnea on exertion) History of CVA (cerebrovascular accident) Hx of tuberculosis Hyperlipemia, mixed Hypertension Paroxysmal cardiac arrhythmia Pulmonary hypertension Ventricular arrhythmia Surgical History H/O: hysterectomy History of arthroplasty of right knee History of back surgery Hx of appendectomy Hx of cholecystectomy Family History Mother CAD (coronary artery disease) Father CAD (coronary artery disease) Brother CAD (coronary artery disease) Stroke Daughter Cancer Sister Dementia Denies family history of Diabetes Clotting disorder Chronic kidney disease (CKD) Suicide Anesthesia complication Bleeding disorder Lung disease Social History Smoking and tobacco status: former smoker Quit status (tobacco): has quit using tobacco Second hand smoke exposure: No Smoking risk assessment/counseling performed?: No Alcohol intake: never Physical Exam Const: COMMON NORMALS: no acute distress GENERAL APPEARANCE: cooperative and comfortable ORIENTATION/CONSCIOUSNESS: Yes awake, Yes oriented to person, Yes oriented to place and Yes oriented to time HENMT: COMMON NORMALS: normocephalic, atraumatic and hearing grossly normal bilaterally HEAD & SCALP: normocephalic and atraumatic Neck/C-Spine: COMMON NORMALS: no JVD Resp: COMMON NORMALS: normal respiratory effort, No retractions, No use of accessory muscles and clear to auscultation bilaterally AUSCULTATION: clear to auscultation bilaterally Cardio: COMMON NORMALS: no JVD, regular rate, regular rhythm and No murmurs present (Cardio) RATE: regular rate RHYTHM: regular rhythm GI: COMMON NORMALS: Soft to palpation and No hepatosplenomegaly present AUSCULTATION: Yes normoactive bowel sounds PALPATION: Yes Soft to palpation, No Tenderness to palpation present (GI), No Guarding due to palpation present (GI) and Yes No hepatosplenomegaly present Extremity: COMMON NORMALS: normal to inspection, capillary refill normal, no clubbing, cyanosis or edema, no calf tenderness and no pedal edema Neuro: SENSORIUM/ORIENTATION: Yes oriented to person, Yes oriented to place and Yes oriented to time Skin: COMMON NORMALS: no rashes or lesions noted GENERAL SKIN EXAM: no rashes or lesions noted Course Vital Signs: Vital signs: Vital Signs Temperature 99.0 F 01/12/21 09:42 Pulse Rate 95 01/12/21 14:05 Respiratory Rate 14 01/12/21 09:42 Blood Pressure 128/62 01/12/21 14:05 Pulse Oximetry 95 01/12/21 14:05 MDM - Chest Pain MDM Narrative: Medical decision making narrative: Patient symptoms are resolved. She has counterman atypical chest pain today mostly GI related. Patient been smoking marijuana regularly for a little over 40 years and that does contribute to it. She probably should have a stress test done we will have case management make arrangements for an outpatient Lexiscan sestamibi stress test advised take baby aspirin daily as well. Lab Data: Labs: Lab Results 01/12/21 01/12/21 01/12/21 09:55 09:55 09:55 WBC 14.3 10^3/uL H 10 ^3/uL (4.0-10.0) RBC 5.27 10^6/uL 10^6 /uL (4.1-5.3) Hgb 15.8 g/dL H g/dL (11.5-15.3) Hct 47.8 % H % (37.0-47.0) MCV 90.7 fl fl (81-99) MCH 30.0 pg pg (28.0-34.0) MCHC 33.1 g/dL g/dL (30.0-36.0) RDW 13.1 % % (12.1-15.1) Plt Count 284 10^3/cmm 10^3 /cmm (130-400) MPV 11.9 fL H fL (7.4-10.4) Neut % (Auto) 80.7 % % Lymph % (Auto) 15.8 % % [place] % (Auto) 2.7 % % Eos % (Auto) 0.0 % % Baso % (Auto) 0.3 % % Neut # (Auto) 11.55 10^3/uL H 1 0^3/uL (1.8-7.7) Lymph # (Auto) 2.3 10^3/uL 10^3/ uL (0.8-4.8) [place] # (Auto) 0.4 10^3/uL 10^3/ uL (0.2-0.9) Eos # (Auto) 0.0 10^3/uL 10^3/ uL (0.0-0.8) Baso # (Auto) 0.0 10^3/uL 10^3/ uL (0.0-0.1) Nucleated RBC % (a uto) 0 % % Nucleated RBCs # 0.0 /100WBC /100W BC Sodium 139 mmol/L mmol/L (136-145) Potassium 3.6 mmol/L mmol/L (3.5-5.1) Chloride 98 mmol/L mmol/L (98-107) Carbon Dioxide 26 mmol/L mmol/L (22-29) Anion Gap 18.6 (5-19) BUN 14 mg/dL mg/dL (8-23) Creatinine 0.6 mg/dL mg/dL (0.5-0.9) GFR Calculation 99.1 mL/min mL/mi n (90-130) Glucose 119 mg/dL H mg/dL (65-115) Calculated Osmolal ity 290 mOsm/kg mOsm/ kg (285-295) Calcium 9.8 mg/dL mg/dL (8.5-10.5) Total Bilirubin 0.5 mg/dL mg/dL (0.15-1.2) AST 33 U/L H U/L (0-32) ALT 16 U/L U/L (0-33) Alkaline Phosphata se 73 IU/L IU/L (35-105) Creatine Kinase 290 U/L H U/L (26-192) Troponin T Baselin e 11 ng/L H ng/L (0-10) Troponin T 120 Min stebbins Delta Troponin T Total Protein 7.9 g/dL g/dL (6.6-8.7) Albumin 4.7 g/dL g/dL (3.5-5.2) Globulin 3.2 g/dL g/dL (1.3-4.6) Urine Color Urine Appearance Urine pH Ur Specific Gravit y Urine Protein Urine Glucose (UA) Urine Ketones Urine Blood Urine Nitrate Urine Bilirubin Urine Urobilinogen Ur Leukocyte Cristine ase Urine RBC Urine WBC Ur Squamous Epith Cells Amorphous Sediment Urine Bacteria Urine Mucus 01/12/21 01/12/21 10:21 12:37 WBC RBC Hgb Hct MCV MCH MCHC RDW Plt Count MPV Neut % (Auto) Lymph % (Auto) [place] % (Auto) Eos % (Auto) Baso % (Auto) Neut # (Auto) Lymph # (Auto) [place] # (Auto) Eos # (Auto) Baso # (Auto) Nucleated RBC % (a uto) Nucleated RBCs # Sodium Potassium Chloride Carbon Dioxide Anion Gap BUN Creatinine GFR Calculation Glucose Calculated Osmolal ity Calcium Total Bilirubin AST ALT Alkaline Phosphata se Creatine Kinase Troponin T Baselin e Troponin T 120 Min stebbins 8.65 ng/L ng/L (0-10) Delta Troponin T -2.35 ABS# L ABS# (0-10) Total Protein Albumin Globulin Urine Color Yellow (Yellow) Urine Appearance Clear (CLEAR) Urine pH 7 (5-7) Ur Specific Gravit y 1.015 (1.005-1.030) Urine Protein Trace (Negative) Urine Glucose (UA) Norm (Normal) Urine Ketones 2+ H (Negative) Urine Blood Neg (Negative) Urine Nitrate Negative (Negative) Urine Bilirubin Neg (Negative) Urine Urobilinogen Norm mg/dL mg/dL (Negative) Ur Leukocyte Cristine ase Negative (Negative) Urine RBC 0-4 /hpf H /hpf (0-2) Urine WBC None /hpf /hpf (0-5) Ur Squamous Epith Cells 0-4 /hpf H /hpf (0-5) Amorphous Sediment 1+ /hpf /hpf Urine Bacteria Trace /hpf /hpf (NONE) Urine Mucus 1+ /hpf /hpf Discharge Plan Discharge Patient Disposition: Home Clinical Impression: Atypical chest pain Condition: Stable Prescriptions: No Action multivitamin [Multiple Vitamins] Tablet 1 tab PO DAILY RF: 0 amlodipine 10 mg tablet 10 mg PO QAM RF: 0 metoprolol tartrate 50 mg tablet 50 mg PO BID RF: 0 vitamin B complex Tablet 1 tab PO DAILY RF: 0 lisinopril 40 mg tablet 40 mg PO QAM RF: 0 rosuvastatin 20 mg tablet 20 mg PO BEDTIME RF: 0 cholecalciferol (vitamin D3) [Vitamin D3] 25 mcg (1,000 unit) Tablet 25 mcg PO DAILY RF: 0 Belsomra 10 mg tablet 15 mg PO BEDTIME RF: 0 melatonin 10 mg Tablet 10 mg PO BEDTIME RF: 0 gabapentin 300 mg capsule 300 mg PO QID RF: 0 ondansetron HCl [Zofran] 4 mg tablet 4 mg PO Q6H PRN (Reason: nausea and vomiting) Qty: 15 RF: 0 Aspir-81 81 mg Tablet,Delayed Release (Dr/Ec) 81 mg PO QAM RF: 0 hydrocodone-acetaminophen 7.5-325 mg tablet 1 tab PO QID PRN (Reason: Pain) RF: 0 Benadryl 25 mg Capsule 25 mg PO TID PRN (Reason: Allergy Symptoms) RF: 0 promethazine 25 mg tablet 25 - 50 mg PO Q8H PRN (Reason: Nausea And Vomiting) RF: 0 Discharge Orders: Discharge ED (Routine); Ordered 01/12/21 Ordered By: Ludwig Beal Referrals: Del Galarza MD [Primary Care Provider] - Discharge Diet: Usual diet Discharge Activity: Limit activity as instructed Patient Instructions: Opioid Safety Coding Level of Care Code ED Tier Over for Chg Fwd Exam Comprehensive
--- NOTE | 2021-01-12 11:41 | XR_ITS ---
WS: [id number] Portable AP upright chest, 01/12/2021 Clinical Data: dyspnea/cough Comparison: Portable chest, 09/17/2020. Findings: No nodules, masses or effusions are seen. The heart is normal. The pulmonary vascularity is not increased. No pneumonia or pneumothorax is seen. The aortic arch and descending thoracic aorta s hows mild tortuosity. Monitor leads are on the chest wall. There is an anterior cervical disc fusion. XR/XR chest 1V portable [id number] Impression: Atherosclerosis.
--- NOTE | 2021-01-12 11:42 | ECG_ITS ---
[facility] Test Date: 2021-01-12 Pat Name: Constance Toussaint Department: Room: Gender: Female Concrete Block Layer: : 1950 Requested By: Ludwig Mehta Order Number: [id number] Mandy MD: Kenya Francis M.D. Measurements Intervals [place] Rate: 102 P: 60 SC: 166 QRS: 32 QRSD: 76 T: 49 QT: 360 QTc: 470 Interpretive Statements SINUS TACHYCARDIA WITH OCCASIONAL VENTRICULAR PREMATURE COMPLEXES ABNORMAL RHYTHM ECG Compared to ECG 01/12/2021 10:04:14 Ventricular premature complex(es) now present Sinus rhythm no longer present Myocardial infarct finding no longer present Electronically Signed On 01-12-2021 20:49:01 GENERAL LITHOGRAPHIC WORKER by Kenya Francis M.D. [email or web address] [email or web address] [facility].[employer]/store/OM/[id number]
[2021-01-12] MEDS: acetaminophen 500 mg Tablet 1000 MG PO (11:59)
[2021-01-12 13:18] LABS: Troponin 5 2HR 8.65 ng/L (0-10)
[2021-01-12 13:21] LABS: Troponin 5 2HR Delta -2.35 ABS# (0-10)
--- NOTE | 2021-01-14 11:39 | DCPLANNER ---
wine manager had message to schedule an outpatient stress test for patient. wine manager faxed signed order to centralized scheduling, who will call patient with appointment information.
--- NOTE | 2021-02-25 08:20 | DCPLANNER ---
Addendum entered by Sue Jimenez 04/08/21 11:49: Patient had a stress test scheduled - patient did attend appointment. Original Note: Patient has an outpatient stress test scheduled for , March 10, 2021 at 10:45. Centralized scheduling will call patient with appointment information.
== END 2021-01-12 14:07 | disposition home or self-care (01) ==
PROVIDERS: Emergency Provider Family Medicine; PCP Family Medicine
DX: R07.89 Other chest pain (principal); I10 Essential (primary) hypertension; E78.2 Mixed hyperlipidemia; Z82.49 Family history of ischemic heart disease and other diseases of the circulatory system; Z87.891 Personal history of nicotine dependence
CPT/HCPCS: 71045; 80053; 81001; 82550; 84484; 85025; 93005; 96361; 96372; 96374; 99284; J2550; J7030

== ENCOUNTER → 2021-02-10 08:51 | Outpatient (BNVA) | payer MEDICARE, MEDICAID, SELFPAY | PROVIDERS: PCP Family Medicine; Visit Provider Orthopaedic Surgery | DX: M54.2 Cervicalgia (principal); G89.29 Other chronic pain; Z98.1 Arthrodesis status; M25.511 Pain in right shoulder; M19.011 Primary osteoarthritis, right shoulder | CPT/HCPCS: 72050; 73030 ==

== ENCOUNTER → 2021-02-28 14:56 | Outpatient (BNVA) | payer MEDICARE, MEDICAID, SELFPAY | PROVIDERS: PCP Family Medicine; Visit Provider Podiatrist Foot & Ankle Surgery | DX: M79.671 Pain in right foot (principal); M77.31 Calcaneal spur, right foot; Z46.89 Encounter for fitting and adjustment of other specified devices; M72.2 Plantar fascial fibromatosis | CPT/HCPCS: 73630; 97760; L4397 ==

== ENCOUNTER 2021-02-28 15:56 | Outpatient (CLI) | payer MEDICARE, MEDICAID, SELFPAY | END 2021-02-28 15:57 | disposition home or self-care (01) | LOC: SPT 15:57 | PROVIDERS: PCP Family Medicine; Visit Provider Podiatrist Foot & Ankle Surgery | DX: Z46.89 Encounter for fitting and adjustment of other specified devices (principal); M72.2 Plantar fascial fibromatosis | CPT/HCPCS: 97760; L4397 ==

== ENCOUNTER 2021-03-14 09:19 | Outpatient (CLI) | payer MEDICARE, MEDICAID, SELFPAY ==
--- NOTE | 2021-03-14 09:25 | MR_ITS ---
WS: [id number] MRI CERVICAL SPINE NONCONTRAST AND CONTRAST TECHNIQUE: Sagittal T1, T2 and STIR imaging. Axial T2, gradient, and fiesta imaging. CLINICAL INFORMATION: M54.2 - Cervicalgia COMPARISON: MRI April 29, 2014 FINDINGS: Straightening of the normal cervical lordosis. Anterior cervical fusion C3-C5 with anterior fixation hardware. Interbody bony fusion C5-6 and C6-C7. Alignment is unchanged since 2014. Disc bulging at C7 -T1 has progressed. C2-C3: Normal. C3-C4: Anterior cervical fusion. Moderate right facet arthropathy. Mild left foraminal narrowing. Spinal canal is patent. C4-C5: Postoperative changes ACDF. Mild bilateral bony foraminal narrowing. Moderate right facet arth ropathy. C5-C6: Anterior cervical fusion. Moderate left and mild right bony foraminal narrowing. Mild central canal stenosis. C6-C7: Osteophytic ridging. Moderate left and mild right bony foraminal narrowing. Mild central canal stenosis. C7-T1: Shallow central disc protrusion progressed compared to previous. Mild central canal stenosis. Slight contact of the cervical cord. Mild bilateral bony foraminal narrowing. Tiny amount of myelomalacia in the cervical cord at C5-C6 unchanged compared to previous. No abnormal gadolinium enhancement. Visualized brain stem structures: Normal. Prevertebral soft tissues: Normal. MR/MR cervical spine wo/w [id number] IMPRESSION: 1. Straightening of the normal cervical lordosis. Anterior cervical fusion C3- C5 with hardware. Interbody bony fusion C5-C6 and C6-C7. This is unchanged from previous. 2. Progressed shallow central protrusion C7-T1 with slight contact of the cerv ical cord and mild central canal stenosis. 3. Otherwise no other significant changes compared to previous. 4. Mild to moderate bony foraminal narrowing worse at bilateral C4-5, left C5- 6 and left C6-7.
--- NOTE | 2021-03-14 09:30 | MR_ITS ---
WS: [id number] MRI RIGHT SHOULDER NONCONTRAST TECHNIQUE: Sagittal T2, coronal T1, T2 and proton density imaging. Axial gradient PDE imaging. CLINICAL INFORMATION: M25.519 - Pain in unspecified shoulder COMPARISON: None. FINDINGS: Advanced degenerative arthritis AC joint with diffuse edema. Small amount of subacromial subdeltoid f luid with surrounding soft tissue edema. Small amount of AC joint fluid.Correlation for synovitis. Mi nimal downsloping of the acromion. Undersurface spurring at the distal acromium with slight impingeme nt on the distal supraspinatus. Normal distal supraspinatus. Normal infraspinatus. Normal teres minor. Tendinopathy within the subsca pularis which appears intact. Normal biceps tendon within the bicipital groove. Tendinopathy with sma ll intrasubstance tear intra-articular biceps tendon with diffuse T2 signal abnormality. Degenerative fraying glenoid labrum which appears grossly intact. MR/MR shoulder RT wo con* [id number] IMPRESSION: 1. Advanced degenerative arthritis AC joint with edema in the distal clavicle and acromion. Associated soft tissue edema with a small joint effusion. Recomme nd correlation for synovitis. 2. Slight subacromial spurring with impingement on the distal supraspinatus wh ich is intact. Tendinopathy within the subscapularis. Rotator cuff is otherwise normal in appearance. 3. Diffuse T2 signal abnormality involving the intra-articular biceps tendon c ompatible with tendinopathy. Small intrasubstance tear. Normal biceps tendon in the bicipital groove. 4. Glenoid labrum appears grossly normal.
[2021-03-14] MEDS: gadobenate dimeglumine 20 mL vial IV (11:39)
== END 2021-03-14 09:20 | disposition home or self-care (01) ==
LOC: RADSHAW 09:23
PROVIDERS: PCP Family Medicine; Visit Provider Orthopaedic Surgery
DX: M19.011 Primary osteoarthritis, right shoulder (principal); M43.22 Fusion of spine, cervical region; M50.23 Other cervical disc displacement, cervicothoracic region
CPT/HCPCS: 72156; 73221; A9577

== ENCOUNTER 2021-03-17 07:20 | Outpatient (CLI) | payer MEDICARE, MEDICAID, SELFPAY ==
--- NOTE | 2021-03-17 07:43 | NMCV_ITS ---
NM kurt perf SPECT r/s* [id number] Constance Toussaint Age: 70 Gender: F : 1950 Exam Date: 03/17/2021 08:35 Ordering Phys: Ludwig Beal DO Technologist: NAUN Beaulieu Exam Location: [facility] Indications: CHEST PAIN STRESS TEST Please see separate stress test report in [facility] for full findings IMAGE PROTOCOL Rest/Stress 1 Lexiscan Day Radiopharmaceutical Dose (mCi) Administration Site Administered by Rest: Tc-99m 10.9 IV NAUN Damon Sestamibi Stress:Tc-99m 32.8 IV NAUN Damon Sestamibi Rest: 17-Mar-2021 60 Discovery 630 Stress: 17-Mar-2021 30 Discovery 630 0.4mg Lexiscan. Images obtained in supine and prone position. SPECT RESULTS Technical Quality: Excellent Raw Data Analysis: Normal Image Corrections: No attenuation or motion correction applied Summed Stress Score: 0 Summed Rest Score: 0 Summed Difference Score: 0 PERFUSION FINDINGS SPECT images demonstrate homogeneous tracer distribution throughout the myocardium. FUNCTIONAL RESULTS (calculated via Gated SPECT) Stress Image LV EF (%): 71 Stress EDV (mL):79 TID: 1.26 Stress ESV (mL):23 FUNCTIONAL FINDINGS: There is normal left ventricular systolic function. Elevated transient ischemic dilation ratio. IMPRESSIONS 1. Normal myocardial perfusion imaging with no evidence of ischemia 2. LV systolic function is normal 3. Elevated transient ischemic dilation ratio Francisco Zuleta MD (Electronically Signed) Final Date: 17 March 2021 13:49 S
--- NOTE | 2021-03-17 07:43 | ECG_ITS ---
[facility] Test Date: 2021-03-17 Pat Name: Constance Toussaint Department: Room: Gender: Female Spray Operator: : 1950 Requested By: Ludwig Mehta Order Number: [id number] Mandy MD: Sravanthi Hickey M.D. Interpretive Statements NAME OF STUDY: LEXISCAN SESTAMIBI STRESS TEST INDICATION: Chest Pain PROCEDURE: At the baseline, the blood pressure was 130/73 mm Hg with a heart rate of 65 bpm. The electrocardiogram showed sinus rhythm, normal axis and normal ST and T's. The Lexiscan was infused over a period of 20 seconds. A total of 0.4 milligrams of Lexiscan was infused. The stress phase was continued for a total of 5 minutes. Heart rate at the end of the stress phase was 89 bpm with a blood pressure of 134/64 mm Hg. The EKG at the peak infusion revealed no significant ST and T wave changes. The study was terminated due to protocol completion. Sestamibi was injected 20 seconds after the Lexiscan infusion. Blood pressure at the end of the recovery phase was 129/62 mm Hg with a heart rate of 77 beats per minute. CONCLUSION: 1. No significant EKG changes with the LexiScan infusion. 2. No LexiScan induced chest pain or cardiac arrhythmia. 3. Normal blood pressure and heart rate response. 4. Sestamibi/sestamibi perfusion scan pending; see separate report. Electronically Signed On 03-21-2021 20:23:54 FABRIC SEPARATOR OPERATOR by Sravanthi Hickey M.D. [id number]
[2021-03-17 07:55] VITALS: BMI 25.4
[2021-03-17] MEDS: regadenoson 0.4 Mg/5 ml Syringe IVP (09:22)
[2021-03-17 09:57] VITALS: BP 129/62; PULSE 78
== END 2021-03-17 07:21 | disposition home or self-care (01) ==
LOC: CDL 07:23
PROVIDERS: PCP Family Medicine; Visit Provider Family Medicine
DX: R07.9 Chest pain, unspecified (principal); R06.02 Shortness of breath
CPT/HCPCS: 78452; 93017; A9500; J2785

== ENCOUNTER 2021-03-18 11:18 | Outpatient (CLI) | payer MEDICARE, MEDICAID, SELFPAY ==
--- NOTE | 2021-03-18 11:25 | XR_ITS ---
WS: [id number] DEXA (DUAL ENERGY X-RAY ABSORPTIOMETRY) Bone mineral density was performed using a [employer] machine. HISTORY: POSTMENOPAUSAL COMPARISON: None available. Lumbar spine BMD (L1-L3): 1.275 T score: 0.9 Z score: 2.5 Total hip BMD: Left: 0.962 g/cm2. T score: -0.4 Z score: 1.1 Right: 0.892 g/cm2. T score: -0.9 Z score: 0.5 10 year probability of a major osteoporotic fracture is 14%. Compared to the prior study from 12/26/2017. Bilateral hips bone mineral density has decreased by 4.1%. XR/XR DEXA axial skeleton* [id number] IMPRESSION: NORMAL BONE MINERAL DENSITY based upon the WHO classification for females. Since the prior examination there has been a significant decrease in bone rn examiner al density within the hips.
== END 2021-03-18 11:19 | disposition home or self-care (01) ==
PROVIDERS: PCP Family Medicine; Visit Provider Family Medicine
DX: Z78.0 Asymptomatic menopausal state (principal)
CPT/HCPCS: 77080

== ENCOUNTER → 2021-05-04 00:01 | Outpatient (BNVA) | payer MEDICARE, MEDICAID, SELFPAY | PROVIDERS: PCP Family Medicine; Visit Provider Orthopaedic Surgery | DX: Z20.822 Contact with and (suspected) exposure to COVID-19 (principal); Z01.818 Encounter for other preprocedural examination | CPT/HCPCS: 87635 ==

== ENCOUNTER 2021-05-09 17:30 | Inpatient (IN) | payer MEDICARE, MEDICAID, SELFPAY ==
[2021-05-06 13:15] VITALS: BMI 27.3
--- NOTE | 2021-05-06 13:18 | ECG_ITS ---
[facility] Test Date: 2021-05-06 Pat Name: Constance Toussaint Department: Room: Gender: Female Flight Coordinator: : 1950 Requested By: Michelet Bettencourt Order Number: [id number] Mandy MD: Sravanthi Hickey M.D. Measurements Intervals [place] Rate: 65 P: 63 MA: 184 QRS: 10 QRSD: 80 T: 48 QT: 383 QTc: 401 Interpretive Statements SINUS RHYTHM LOW QRS VOLTAGE IN PRECORDIAL LEADS [QRS DEFLECTION < 1.0 mV IN CHEST LEADS] Compared to ECG 01/12/2021 11:58:03 Low QRS voltage now present Sinus tachycardia no longer present Ventricular premature complex(es) no longer present Electronically Signed On 05-07-2021 9:00:07 CHARGE ENTRY by Sravanthi Hickey M.D. [id number]
--- NOTE | 2021-05-06 13:59 | ANES.PREANE2 ---
Pre-Anesthetic Assessment Height/Weight: Height 1.63 m Weight 72.121 kg Operation Date: 05/09/21 09:35 Proposed Procedures p Cervical Posterior Fusion c5-c7/83074/32058 x2/87589/m48.02/g99.2(Not Applicable) - Toro Maloney DO Familial anesthetic complications: None Was Beta Joselin taken within 24 hours: Yes Was Clonidine taken within 24 hours: N/A Social No alcohol and No tobacco (h/o smoking) Exam alert, oriented x 3 and regular rate & rhythm Airway Submandibular: within normal limits Cervical ROM: Other (very limited) Mallampati: Class II Dentition: false (upper) Pulmonary Chronic Obstructive Pulmonary Disease CV/HEM Arrythmia, Hypertension and Peripheral Vascular Disease GI Gastroesophageal Reflux Disease Musc/skel Lower Back Pain and Osteoarthritis/DJD chronic pain/opioid Anesthetic Plan ASA status: 3 Anesthesia: General Medications/Allergies Home Medications Medication Instructions Recorded Confirmed Last Taken Type amlodipine 10 mg tablet 10 mg PO QAM 08/07/19 04/14/21 01/12/21 05:00 History pt states threw up lisinopril 40 mg tablet 40 mg PO QAM 08/07/19 04/14/21 11/26/19 History metoprolol tartrate 50 mg tablet 50 mg PO BID 08/07/19 04/14/21 11/26/19 History multivitamin (Multiple Vitamins) 1 tab PO DAILY 08/07/19 04/14/21 11/26/19 History rosuvastatin 20 mg tablet 20 mg PO BEDTIME 08/07/19 04/14/21 11/25/19 History vitamin B complex 1 tab PO DAILY 08/07/19 04/14/21 11/26/19 History melatonin 10 mg tablet 10 mg PO BEDTIME 11/26/19 04/14/21 11/25/19 History gabapentin 300 mg capsule 300 mg PO QID cap 07/21/20 04/14/21 Unknown History suvorexant 10 mg tablet (Belsomra) 15 mg PO BEDTIME tab 07/21/20 04/14/21 Unknown History ondansetron HCl 4 mg tablet 4 mg PO Q6H PRN #15 tab 09/17/20 04/14/21 Unknown Rx (Zofran) aspirin 81 mg tablet,delayed 81 mg PO QAM 01/12/21 04/14/21 Unknown History release diphenhydramine HCl 25 mg capsule 25 mg PO TID PRN 01/12/21 04/14/21 01/12/21 History (Benadryl) hydrocodone 7.5 mg-acetaminophen 1 tab PO QID PRN 01/12/21 04/14/21 Unknown History 325 mg tablet promethazine 25 mg tablet 25 - 50 mg PO Q8H PRN 01/12/21 04/14/21 Unknown History Night splint #1 ea 02/28/21 04/14/21 Unknown Rx esomeprazole magnesium 20 mg 20 mg PO DAILY 02/28/21 04/14/21 Unknown History capsule,delayed release cyclobenzaprine 10 mg tablet 10 mg PO TID PRN #60 tab 04/14/21 Unknown Rx Allergies Allergy/AdvReac Type Severity Reaction Status Date / Time aspirin [From Norgesic] Allergy ADR-Itching Verified 05/06/21 13:10 caffeine [From Norgesic] Allergy ADR-Itching Verified 05/06/21 13:10 cephalexin [From Keflex] Allergy ALGY-Difficulty Verified 05/06/21 13:10 Breathing codeine Allergy Unknown Verified 05/06/21 13:10 orphenadrine [From Norgesic] Allergy ADR-Itching Verified 05/06/21 13:10 Penicillins Allergy Unknown Verified 05/06/21 13:10 pentazocine [From Talwin] Allergy Unknown Verified 05/06/21 13:10 Sulfa (Sulfonamide Allergy Unknown Verified 05/06/21 13:10 Antibiotics) sulfamethoxazole Allergy ALGY-Difficulty Verified 05/06/21 13:10 [From Bactrim] Breathing tiagabine [From Gabitril] Allergy Unknown Verified 05/06/21 13:10 trimethoprim [From Bactrim] Allergy ALGY-Difficulty Verified 04/14/21 09:00 Breathing zonisamide [From Zonegran] Allergy Unknown Verified 04/14/21 09:00 [facility] Anesthesia Medical History Carotid stenosis RM (dyspnea on exertion) History of CVA (cerebrovascular accident) Hx of tuberculosis Hyperlipemia, mixed Hypertension Paroxysmal cardiac arrhythmia Pulmonary hypertension Ventricular arrhythmia Surgical History H/O: hysterectomy History of arthroplasty of right knee History of back surgery Hx of appendectomy Hx of cholecystectomy Hx of oophorectomy Family History Mother CAD (coronary artery disease) Father CAD (coronary artery disease) Brother CAD (coronary artery disease) Stroke Daughter Cancer Sister Dementia Denies family history of Diabetes Clotting disorder Chronic kidney disease (CKD) Suicide Anesthesia complication Bleeding disorder Lung disease Social History Smoking and tobacco status: former smoker Quit status (tobacco): has quit using tobacco Second hand smoke exposure: No Smoking risk assessment/counseling performed?: No Alcohol intake: never Data Anesthesia Cardiac Studies: Echocardiogram Ultrasound 12/16/19 Sestamibi Stress Test (Cardiology) 03/17/21 Cardiac Event Monitor 11/28/19
[2021-05-09] VITALS (15 sets, daily range): BP systolic 97–150; BP diastolic 63–81; PULSE 71–93; RESP 16–19; TEMP 36.1–36.7; O2SAT 88–99
--- NOTE | 2021-05-09 | XR_ITS ---
WS: [id number] C-ARM RADIOGRAPHS CERVICAL THORACIC INLET; 3 IMAGES HISTORY: fusion COMPARISON: 02/10/2021 Intraoperative imaging during fusion at the cervical thoracic junction. Vertical rods and screws exte nd from the lower cervical and the upper thoracic spine. These rods will be better visualized on foll ow-up radiographs. Patient is intubated. There is an additional prior anterior cervical fusion plate with interbody spacers extending from C3 to C5. XR/XR cervical spine 3V* [id number] IMPRESSION: Intraoperative imaging during marjorie and screw fixation at the cervicothoracic [facility].
--- NOTE | 2021-05-09 | SCC_ITS ---
Procedure done: 1. C5-T2 instrumentation 2. C5 - T2 posterior spine fusion 3. C5 laminectomy with partial facetectomies 4. C6 laminectomy with partial facetetomies 5. C7 laminectomy with partial facetectomies 6. Use of autograft 7. use of allograft 19.7 seconds of fluoroscopic guidance, for a cumulative dose of 7.79 mGy, was provided to Dr. Maloney by the radiology department. C-arm images of the cervical spine were saved for the patient's permanent record. SHANTA
[2021-05-09] MEDS: sodium chloride 0.9% 1,000 ML 30 ML IV (10:15)
[2021-05-09 10:19] LABS: Basophils % 0.3 %; Eosinophils # 0.3 10^3/uL (0.0-0.8); Eosinophils % 2.2 %; Lymphocytes # 3.8 10^3/uL (0.8-4.8); Mean Corpuscular HGB Conc 31.1 g/dL (30.0-36.0); Mean Corpuscular Volume 96.4 fl (81-99); Mean Platelet Volume 10.4 fL (7.4-10.4); Monocytes # 0.8 10^3/uL (0.2-0.9); Monocytes % 6.4 %; Neutrophils % 59.9 %; Nucleated Red Blood Cells % 0 %; Platelet Count 258 10^3/cmm (130-400); Red Blood Count 4.67 10^6/uL (4.1-5.3); Red Cell Distribution Width 14.5 % (12.1-15.1); White Blood Count 12.2 10^3/uL (4.0-10.0)
[2021-05-09 10:33] LABS: Alanine Aminotransferase 91 U/L (0-33); Albumin Level 4.8 g/dL (3.5-5.2); Alkaline Phosphatase 145 IU/L (35-105); Anion Gap 13.7 (5-19); Aspartate Amino Transferase 31 U/L (0-32); Blood Urea Nitrogen 17 mg/dL (8-23); Calcium 9.2 mg/dL (8.5-10.5); Carbon Dioxide 31 mmol/L (22-29); Chloride 99 mmol/L (98-107); Globulin 2.9 g/dL (1.3-4.6); Glucose 94 mg/dL (65-115); Osmolality Calculated 289 mOsm/kg (285-295); Potassium 4.7 mmol/L (3.5-5.1); Sodium 139 mmol/L (136-145); Total Bilirubin 0.3 mg/dL (0.15-1.2); Total Protein 7.7 g/dL (6.6-8.7)
--- NOTE | 2021-05-09 10:42 | P.ANESUD_ITS ---
Pre-Anesthetic Update Pre-Anesthetic Assessment: Date of Surgery/Procedure: 05/09/21 Preop Zari gnosis: Cervical spondylosis with myelopathy Proposed Procedure: Operation Date: 05/09/21 11:50 Proposed Procedures p Cervical Posterior Fusion c5-c7//37262 x2/90139/m48.02/g99.2(Not Applicable) - Toro Maloney, DO Any changes to Pre-Anesthetic Assessment?: No Last Intake: Intake Last Liquid Date 05/08/21 Last Liquid Time 23:59 Last Solid Date 05/08/21 Last Solid Time 20:30 Labs Last 48hrs: Short CBC 05/09/21 Range/Units 10:03 WBC 12.2 H (4.0-10.0) 10^3/ uL Hgb 14.0 (11.5-15.3) g/dL Hct 45.0 (37.0-47.0) % MCV 96.4 (81-99) fl Plt Count 258 (130-400) 10^3/c mm Neut % (Auto) 59.9 % Neut # (Auto) 7.30 (1.8-7.7) 10^3/u L BMP 05/09/21 10:03 Sodium 139 Potassium 4.7 Chloride 99 Carbon Dioxide 31 H BUN 17 Creatinine 0.5 Glucose 94 Calcium 9.2 Liver Function 05/09/21 Range/Units 10:03 Total Bilirubin 0.3 (0.15-1.2) mg/dL AST 31 (0-32) U/L ALT 91 H (0-33) U/L Alkaline Phosphata se 145 H (35-105) IU/L Albumin 4.8 (3.5-5.2) g/dL Vitals: Pulse Rate 71 05/09/21 09:48 Pulse Rhythm 05/09/21 09:48 Pulse Strength 3+ Normal 05/09/21 09:48 Respiratory Rate 18 05/09/21 09:48 Blood Pressure 150/70 05/09/21 09:48 Blood Pressure Gabriella n 96 05/09/21 09:48 Pulse Oximetry 95 05/09/21 09:48 Oxygen Delivery Me thod 05/09/21 09:48 Exam: Pre-Anes Outpt Exam: alert, oriented x 3, clear to auscultation bilaterally and regular rate & rhythm Cardiac Studies: Echocardiogram Ultrasound 12/16/19 Sestamibi Stress Test (Cardiology) 03/17/21 Cardiac Event Monitor 11/28/19
[2021-05-09] MEDS: midazolam 1 mg/mL INJ 2 mL 2 MG IVP (11:22)
--- NOTE | 2021-05-09 13:42 | W.PM.OPSUD ---
Surgery/Procedure H&P Update DATE OF PROCEDURE: May 09, 2021 DATE H&P PERFORMED: 04/14/21 H&P UPDATE INFORMATION: I have reviewed H&P completed within last 30 days, I have examined patient prior to procedure and No changes to prior documentation PREOP DIAGNOSIS: Cervical spondylosis with myelopathy PLANNED PROCEDURE: Operation Date: 05/09/21 11:50 Proposed Procedures p Cervical Posterior Fusion c5-c7/52638/97237 x2/54551/m48.02/g99.2(Not Applicable) - Toro Maloney DO
[2021-05-09] MEDS: clindamycin 900 MG/50 ML PREMIX 100 MG IV ×2 (14:29→23:30)
[2021-05-09] MEDS: vancomycin 1,000 MG SDV 1000 MG XX (15:28)
--- NOTE | 2021-05-09 17:13 | PM.OP ---
Operative Report Date of procedure: May 09, 2021 Pre-op diagnosis: Preop Diagnosis Cervical spondylosis with myelopathy Post-op diagnosis: same Procedure done: 1. C5-T2 instrumentation 2. C5 - T2 posterior spine fusion 3. C5 laminectomy with partial facetectomies 4. C6 laminectomy with partial facetetomies 5. C7 laminectomy with partial facetectomies 6. Use of autograft 7. use of allograft Surgeon: Toro Maloney Assistant Front Desk Manager: Bassem Serna Assistant Front Desk Manager: The certified surgical tech/first assistant, Bassem Serna, REBECCA was needed for his expertise under the microscope. He was important and necessary throughout the procedure to complete in a safe and timely manner. He assisted with patient positioning prepping and draping tissue retraction suctioning of the operative field protection of the dural sac and tissue closure Estimated blood loss (mL): 150 Procedure: 1. C5-T2 instrumentation 2. C5 - T2 posterior spine fusion 3. C5 laminectomy with partial facetectomies 4. C6 laminectomy with partial facetetomies 5. C7 laminectomy with partial facetectomies 6. Use of autograft 7. use of allogft Patient was brought to the operative suite. After undergoing anesthesia patient was positioned in the prone position all areas impingement well-padded. Patient was then prepped and draped in normal sterile fashion. Skin incision made from C5-T2. Subperiosteal dissection was made from C5-T2. The dissection was made out to the transverse processes of T1 and T2.. The lateral edges of the lateral mass lamina's were dissected. The retractors were then placed. Attention was then brought to placing lateral mass screws. Lateral mass screws were placed in C5 and C6 bilaterally. This was done by drilling and then placing the screw. And peeling with a pedicle feeler. Once the screws at C5 and C6 were placed attention was then brought to placing the pedicle screws at T1 and T2. Again this was done by drilling the near cortex and then using the awl to track down the pedicle using C-arm guidance. Using the pedicle feeler. Then placing the screws. These were all Heather screws. Excision attention was brought to performing the laminectomies and partial facetectomies. A high-speed drill was used to take down the lamina at C7 this was done bilaterally and then a Kerrison rongeur was used to undercut the bone lamina was then completely freed curved curette was then used to take down the ligamentum flavum inferiorly and then a Kerrison rongeur was used to cut through the ligamentum flavum and then the lamina was taken down. The Kerrison rongeurs were then used to take down the medial aspect of facet joints bilaterally in order to facilitate decompressing the nerve roots. Next a high-speed drill was used to take down the lamina at C6 this was done bilaterally and then a Kerrison rongeur was used to undercut the bone lamina was then completely freed curved curette was then used to take down the ligamentum flavum inferiorly and then a Kerrison rongeur was used to cut through the ligamentum flavum and then the lamina was taken down. The Kerrison rongeurs were then used to take down the medial aspect of facet joints bilaterally in order to facilitate decompressing the nerve roots. Next a high-speed drill was used to take down the lamina at C5 this was done bilaterally and then a Kerrison rongeur was used to undercut the bone lamina was then completely freed curved curette was then used to take down the ligamentum flavum inferiorly and then a Kerrison rongeur was used to cut through the ligamentum flavum and then the lamina was taken down. The Kerrison rongeurs were then used to take down the medial aspect of facet joints bilaterally in order to facilitate decompressing the nerve roots. Next the rods are then measured to be 75 mm rods were placed bilaterally. The Screws Were Placed and Locked in Position. AP and Lateral Fluoroscopy Ensured That the Rods and Screws Are Probe Position. Wounds Were Then Irrigated. And Then High-Speed Drill Was Used To Decorticate the Lateral Masses and Transverse Processes and the T1-T2 Lamina. Osteoamp Bone Graft Was Then Packed in the Lateral Gutters. Wound was then closed in a layered fashion after placing a drain and vancomycin powder. The fascial layer was closed with 0 Vicryl skin was closed with 2-0 Vicryl Monocryl suture and Steri-Strips. Sterile dressing was applied and cervical collar was applied and patient was flipped into the supine position and transferred to the PACU in stable condition.
--- NOTE | 2021-05-09 19:06 | ANE.PACU2 ---
Inpatient post-anesthesia follow up: Airway intact: Yes Vital signs: Temperature 97.0 F Pulse Rate 81 Respiratory Rate 16 Blood Pressure 135/80 Pulse Oximetry 96 Oxygen Delivery Me thod Room Air Oxygen Flow Rate Fraction of Inspir ed Oxygen Hydration adequate: Yes Nausea and vomiting: No Pain level: 1 Mental status: Baseline
[2021-05-09] MEDS: metoprolol tartrate 50 mg Tablet PO (19:42)
[2021-05-09] MEDS: HYDROcodone-acetaminophen 10-325 mg Tablet 1 TAB PO ×2 (19:42→23:30)
[2021-05-09] MEDS: docusate sodium 100 mg Capsule PO (19:42)
[2021-05-09] MEDS: lactated ringers 1,000 ML 90 ML IV (20:27)
[2021-05-09] MEDS: gabapentin 300 mg Capsule PO (20:28)
[2021-05-09] MEDS: atorvastatin 40 mg Tablet 80 MG PO (20:28)
[2021-05-09] MEDS: ketorolac 30 mg/mL INJ IVP (20:36)
[2021-05-09] MEDS: diphenhydrAMINE 25 mg Capsule PO (23:30)
[2021-05-10] VITALS (7 sets, daily range): BP systolic 101–116; BP diastolic 53–71; PULSE 74–84; RESP 17–18; TEMP 36.5–36.8; O2SAT 92–97
[2021-05-10] MEDS: lactated ringers 1,000 ML 90 ML IV ×2 (03:58→20:49)
[2021-05-10] MEDS: enoxaparin 40 mg/0.4 mL Syringe SUBCUT (05:29)
[2021-05-10] MEDS: aspirin 81 mg EC Tablet PO (05:30)
[2021-05-10] MEDS: lisinopril 20 mg Tablet 40 MG PO (05:30)
[2021-05-10] MEDS: amlodipine 10 mg Tablet PO (05:30)
[2021-05-10] MEDS: HYDROcodone-acetaminophen 10-325 mg Tablet 1 TAB PO ×4 (05:30→23:01)
[2021-05-10] MEDS: clindamycin 900 MG/50 ML PREMIX 100 MG IV ×2 (05:40→14:03)
--- NOTE | 2021-05-10 08:00 | PM.PN ---
Subjective Subjective: POD 1 Patient reports improvement of both arms. Has some mild neck pain. She states the movement of her hands is better. Minimal swallowing discomfort. Denies any headaches, chest pain, shortness of breath. Vitals/I&O/Wt Last Vital Signs Temp 97.8 F 05/10/21 07:04 Pulse 75 05/10/21 07:04 Resp 18 05/10/21 07:04 BP 107/61 05/10/21 07:04 Pulse Ox 94 05/10/21 07:04 05/09/21 05/10/21 05/10/21 22:59 06:59 14:59 Intake Total 3080 / 3130 776.5 / 3906.5 Output Total 850 / 850 825 / 1675 Balance 2230 / 2280 -48.5 / 2231.5 Physical Exam Narrative: Patient is alert and oriented x3 with a good general appearance normal normal affect. Mildly tender with palpation about the incisional site. Incision appears to be clean and dry, without signs of erythema or drainage. No signs of infection. Good motor strength throughout both upper extremities. Appears to fire in all motor groups with 5/5 strength. Hands are warm good cap refill in all digits. Normal sensation to light touch in all dermatomal areas. Hemovac intact. Urinary Catheter Management: Worrell: Cath Placed During This Visit: yes Reason for Continuing Indwelling Catheter: Required Immobilization for Trauma or Surgery or Anesthesia Urinary Catheter Date of Insertion: 05/09/21 Urinary Catheter Time of Insertion: 14:37 Data : 05/09/21 10:03 05/09/21 10:03 A&P Assessment and plan (1) Status post cervical spinal fusion: Discussed with the nurse she will discontinue Hemovac drain. Patient lives alone she has some care providers that come and go. Will consult director of social services for other treatment options. Physical therapy to work with today to begin mobilizing. Can work to transition home later today when safe and stable for the patient. Status: Acute Attestations Medical Necessity Statement*: home later today if [facility] arranged Coding Level of Care Code Acute Stencil Machine Operator for Harriett Palma Diagnoses Status post cervical spinal fusion Z98.1
[2021-05-10] MEDS: docusate sodium 100 mg Capsule PO ×2 (09:56→18:01)
[2021-05-10] MEDS: gabapentin 300 mg Capsule PO ×4 (09:56→20:48)
[2021-05-10] MEDS: pantoprazole DR 40 mg Tablet PO (09:56)
[2021-05-10] MEDS: multivitamin therapeutic Tablet 1 TAB PO (09:56)
[2021-05-10] MEDS: metoprolol tartrate 50 mg Tablet PO ×2 (09:56→18:00)
--- NOTE | 2021-05-10 18:02 | PC.NURSE ---
BP101/53 patient states she takes at home anyway due to heart doing flip flops.
[2021-05-10] MEDS: HYDROcodone-acetaminophen 5-325 mg Tablet PO (20:48)
[2021-05-10] MEDS: atorvastatin 40 mg Tablet 80 MG PO (20:48)
[2021-05-10] MEDS: diphenhydrAMINE 25 mg Capsule PO (21:03)
[2021-05-11 04:00] VITALS: BP 108/60; PULSE 76; RESP 17; TEMP 36.7; O2SAT 92
[2021-05-11] MEDS: enoxaparin 40 mg/0.4 mL Syringe SUBCUT (05:55)
[2021-05-11] MEDS: aspirin 81 mg EC Tablet PO (05:56)
[2021-05-11] MEDS: amlodipine 10 mg Tablet PO (05:56)
[2021-05-11] MEDS: lisinopril 20 mg Tablet 40 MG PO (05:56)
[2021-05-11] MEDS: HYDROcodone-acetaminophen 10-325 mg Tablet 1 TAB PO ×2 (05:56→11:35)
--- NOTE | 2021-05-11 06:58 | PM.PN ---
Subjective Subjective: POD 2 Patient reports feeling much better. Arm pain has improved significantly. Denies any swallowing discomfort. She is ready for discharge home. Vitals/I&O/Wt Last Vital Signs Temp 98.0 F 05/11/21 04:00 Pulse 76 05/11/21 04:00 Resp 17 05/11/21 04:00 BP 108/60 05/11/21 04:00 Pulse Ox 92 05/11/21 04:00 05/10/21 05/10/21 05/11/21 14:59 22:59 06:59 Intake Total 480 / 480 1480 / 1960 Output Total 135 / 135 335 / 470 660 / 1130 Balance 345 / 345 1145 / 1490 -660 / 830 Physical Exam Narrative: patient is alert and oriented x3 with a good general appearance normal normal affect. Mildly tender with palpation about the incisional site. Incision appears to be healing nicely without signs of erythema or drainage. No signs of infection. Good motor strength throughout both upper extremities. Appears to fire in all motor groups with 5/5 strength. Hands are warm good cap refill in all digits. Normal sensation to light touch in all dermatomal areas. Hemovac drain was discontinued Urinary Catheter Management: Worrell: Cath Placed During This Visit: yes Reason for Continuing Indwelling Catheter: Required Immobilization for Trauma or Surgery or Anesthesia Urinary Catheter Date of Insertion: 05/09/21 Urinary Catheter Time of Insertion: 14:37 Data : 05/09/21 10:03 05/09/21 10:03 A&P Assessment and plan (1) Status post cervical spinal fusion: Drain was discontinued ready for discharge home. She will follow up in 1 week in the office for wound check. She will continue the [place] J collar. No bending lifting or twisting activities. Hydrocodone tens were sent to the pharmacy. Status: Acute Attestations Medical Necessity Statement*: home today Coding Level of Care Code Acute Furniture Removalist'S Assistant for Harriett Palma Diagnoses Status post cervical spinal fusion Z98.1
[2021-05-11 07:35] VITALS: BP 119/73; PULSE 94; RESP 18; TEMP 36.4; O2SAT 94
[2021-05-11] MEDS: pantoprazole DR 40 mg Tablet PO (07:58)
[2021-05-11] MEDS: gabapentin 300 mg Capsule PO (07:58)
[2021-05-11] MEDS: multivitamin therapeutic Tablet 1 TAB PO (07:58)
[2021-05-11] MEDS: docusate sodium 100 mg Capsule PO (07:58)
[2021-05-11] MEDS: metoprolol tartrate 50 mg Tablet PO (08:00)
--- NOTE | 2021-05-11 11:36 | PC.NURSE ---
Discussed discharge, follow up appointments and medictions with patient. Verbalized understanding.
[2021-05-11 12:00] VITALS: BP 116/73; PULSE 75; RESP 17; TEMP 36.4; O2SAT 94
[2021-05-11 12:08] VITALS: BP 119/73; PULSE 94; RESP 18; TEMP 36.4; O2SAT 94
--- NOTE | 2021-05-12 19:32 | PM.DCS ---
Discharge Providers Date of Admission: 05/09/21 17:30 Date of Discharge: May 11, 2021 Attending Provider at Admission: Toro Maloney DO Attending Provider at Discharge: Toro Maloney DO Primary Care Provider: Del Galarza MD Diagnoses at Discharge Discharge Diagnosis (1) Status post cervical spinal fusion: Status: Acute Reason for Visit Reason for Visit: spinal stenosis, cervical region, myelopathy Hospital Course Hospital Course uneventful Physical Exam Urinary Catheter Management: Worrell: Cath Placed During This Visit: yes, but has since been removed by the nurse Reason for Continuing Indwelling Catheter: Required Immobilization for Trauma or Surgery or Anesthesia Urinary Catheter Date of Insertion: 05/09/21 Urinary Catheter Time of Insertion: 14:37 Date Urinary Catheter Removed: 05/11/21 Time Urinary Catheter Discontinued: 10:50 Discharge Data Studies Completed and Pending Completed Studies During Hospitalization Category Date Time Status XR cervical spine 3V* [id number] Routine Exams 05/09/21 Completed Radiology Impressions Cervical Spine X-Ray 05/09/21 00:00 IMPRESSION: Intraoperative imaging during marjorie and screw fixation at the cervicothoracic junction. Laboratory Results WBC 12.2 10^3/uL (4.0-10.0) H 05/09/21 10:03 RBC 4.67 10^6/uL (4.1-5.3) 05/09/21 10:03 Hgb 14.0 g/dL (11.5-15.3) 05/09/21 10:03 Hct 45.0 % (37.0-47.0) 05/09/21 10:03 MCV 96.4 fl (81-99) 05/09/21 10:03 MCH 30.0 pg (28.0-34.0) 05/09/21 10:03 MCHC 31.1 g/dL (30.0-36.0) 05/09/21 10:03 RDW 14.5 % (12.1-15.1) 05/09/21 10:03 Plt Count 258 10^3/cmm (130-400) 05/09/21 10:03 MPV 10.4 fL (7.4-10.4) 05/09/21 10:03 Neut % (Auto) 59.9 % 05/09/21 10:03 Lymph % (Auto) 31.0 % 05/09/21 10:03 [place] % (Auto) 6.4 % 05/09/21 10:03 Eos % (Auto) 2.2 % 05/09/21 10:03 Baso % (Auto) 0.3 % 05/09/21 10:03 Neut # (Auto) 7.30 10^3/uL (1.8-7.7) 05/09/21 10:03 Lymph # (Auto) 3.8 10^3/uL (0.8-4.8) 05/09/21 10:03 [place] # (Auto) 0.8 10^3/uL (0.2-0.9) 05/09/21 10:03 Eos # (Auto) 0.3 10^3/uL (0.0-0.8) 05/09/21 10:03 Baso # (Auto) 0.0 10^3/uL (0.0-0.1) 05/09/21 10:03 Nucleated RBC % (auto) 0 % 05/09/21 10:03 Nucleated RBCs # 0.0 /100WBC 05/09/21 10:03 Sodium 139 mmol/L (136-145) 05/09/21 10:03 Potassium 4.7 mmol/L (3.5-5.1) 05/09/21 10:03 Chloride 99 mmol/L (98-107) 05/09/21 10:03 Carbon Dioxide 31 mmol/L (22-29) H 05/09/21 10:03 Anion Gap 13.7 (5-19) 05/09/21 10:03 BUN 17 mg/dL (8-23) 05/09/21 10:03 Creatinine 0.5 mg/dL (0.5-0.9) 05/09/21 10:03 GFR Calculation 122.0 mL/min (90-130) 05/09/21 10:03 Glucose 94 mg/dL (65-115) 05/09/21 10:03 Calculated Osmolality 289 mOsm/kg (285-295) 05/09/21 10:03 Calcium 9.2 mg/dL (8.5-10.5) 05/09/21 10:03 Total Bilirubin 0.3 mg/dL (0.15-1.2) 05/09/21 10:03 AST 31 U/L (0-32) 05/09/21 10:03 ALT 91 U/L (0-33) H 05/09/21 10:03 Alkaline Phosphatase 145 IU/L (35-105) H 05/09/21 10:03 Total Protein 7.7 g/dL (6.6-8.7) 05/09/21 10:03 Albumin 4.8 g/dL (3.5-5.2) 05/09/21 10:03 Globulin 2.9 g/dL (1.3-4.6) 05/09/21 10:03 Vitals Last Vital Signs Temp 97.6 F 05/11/21 12:08 Pulse 94 05/11/21 12:08 Resp 18 05/11/21 12:08 BP 119/73 05/11/21 12:08 Pulse Ox 94 05/11/21 12:08 Discharge Plan Discharge Patient Disposition: Home Condition: Stable Prescriptions: Continued (DME) Night splint See Rx Instructions .Route .MEDSUPPLY Qty: 1 0RF Rx Instructions: As directed cyclobenzaprine 10 mg tablet 10 mg PO TID PRN (Reason: muscle spasm) Qty: 60 0RF multivitamin [Multiple Vitamins] Tablet 1 tab PO DAILY 0RF amlodipine 10 mg tablet 10 mg PO QAM 0RF metoprolol tartrate 50 mg tablet 50 mg PO BID 0RF vitamin B complex Tablet 1 tab PO DAILY 0RF lisinopril 40 mg tablet 40 mg PO QAM 0RF rosuvastatin 20 mg tablet 20 mg PO BEDTIME 0RF melatonin 10 mg Tablet 10 mg PO BEDTIME 0RF gabapentin 300 mg capsule 300 mg PO QID 0RF ondansetron HCl [Zofran] 4 mg tablet 4 mg PO Q6H PRN (Reason: nausea and vomiting) Qty: 15 0RF aspirin 81 mg Tablet,Delayed Release (Dr/Ec) 81 mg PO QAM 0RF diphenhydramine HCl [Benadryl] 25 mg Capsule 25 mg PO TID PRN (Reason: Allergy Symptoms) 0RF promethazine 25 mg tablet 25 - 50 mg PO Q8H PRN (Reason: Nausea And Vomiting) 0RF hydrocodone-acetaminophen 10-325 mg tablet 1 tab PO QID PRN (Reason: Pain) 0RF esomeprazole magnesium 40 mg capsule,delayed release(DR/EC) 40 mg PO BID 0RF Belsomra 20 mg tablet 20 mg PO BEDTIME 0RF cholecalciferol (vitamin D3) [Vitamin D3] 125 mcg (5,000 unit) Tablet 125 mcg PO DAILY 0RF No Action oxycodone 10 mg tablet 10 mg PO Q4H PRN (Reason: pain) 7 Days Qty: 40 0RF Discharge Orders: Discharge Order (Routine); Ordered 05/11/21 Ordered By: Bassem Serna Other Ambulatory Orders: DME: Walker (Order) Location: None Selected Ordered By: Toro Maloney Referrals: [facility] [Outside] Toro Maloney, [Physician] - 05/19/21 1:45 pm (APPOINTMENT FOR DRESSING CHANGE WITH NURSE IN ORTHO CLINIC) Discharge Diet: Advance as tolerated Discharge Activity: Increase activity as tolerated Patient Instructions: Hydrocodone/Acetaminophen (By mouth), Anterior Posterior Spinal Fusion (IP), How to Choose and Use a Walker (GEN) Activity Restrictions/Additional Instructions: Thank you for choosing [facility] for your care! The following is a list of instructions, from your provider, to follow upon your discharge to ensure you have the optimal recovery from your recent injury or surgery. Posterior cervical fusion: What to Expect at Home Your Recovery Follow-up care is a mathur part of your treatment and safety. Be sure to make and go to all appointments, and call your doctor if you are having problems. If you do not already have a follow-up appointment made, call office in the next 1-3 days to make follow up appointment for 1 weeks at [phone]. It is also a good idea to know your test results and keep a list of the medicines you take. You can expect your neck to feel stiff or sore after surgery. This should improve in the weeks after surgery. But it may take 4 to 6 months for you to get better completely. You may have trouble sitting or standing in one position for very long and may need pain medicine in the weeks after your surgery. It may take 4 to 6 weeks to get back to your usual activities, but it may depend on what kind of surgery you had. Your throat will feel sore and it may be difficult to swallow for the first 3 days after your surgery. As long as you can get liquids down without difficulty, this should slowly improve, otherwise call our office or seek medical attention if it becomes increasingly difficult to get anything down including liquids. Avoid hot liquids for first 3-5 days. Soothing foods/liquids such as jello, pudding, and luke warm soups are recommended until swallowing improves. Staying elevated will also help, it's advised you keep propped up at while sleeping to help reduce the swelling. You may use an ice pack directly on your incision or around it on the front of your neck, using a cloth to protect your skin; and a heating pad to the back of your neck as needed. Do not use over the counter anti-inflammatory medications (Ibuprofen, Motrin, Aleve, Advil, etc) Taking these meds after having a fusion can delay fusion rates, we recommend you avoid them for the first 3 months after your surgery[address] Dr. Maloney may advise you to work with a physical therapist to strengthen the muscles around your neck and back - this will be discussed at your follow - up appointments. The pain or numbness you were having in your arms before surgery should get better or go away completely. This care sheet gives you a general idea about how long it will take for you to recover. But each person recovers at a different pace. Follow the steps below to get better as quickly as possible. How can you care for yourself at home? Activity ? Rest when you feel tired. Getting enough sleep will help you recover. ? Try to walk each day. Start by walking a little more than you did the day before. Bit by bit, increase the amount you walk. Walking boosts blood flow and helps prevent pneumonia and constipation. Walking may also decrease your muscle soreness after surgery. ? No lifting anything that is more that 5 pounds. This may include heavy grocery bags and milk containers, a heavy briefcase or backpack, cat litter or dog food bags, a child, or a vacuum beer coil cleaner. ? Avoid strenuous activities, such as bicycle riding, jogging, weightlifting, or aerobic exercise, until your doctor says it is okay. ? Do not drive until your follow-up visit after your surgery, or until your doctor says it isokay. ? Avoid taking long car trips for 2 to 4 weeks after surgery. Your neck may become tired and painful from sitting too long in one position. ? You will probably need to take 4 to 6 weeks off from work. It depends on the type of work you do and how you feel. ? You may have sex as soon as you feel able, but avoid positions that put stress on your neck or cause pain. Diet ? You can eat your normal diet. If your stomach is upset, try bland, low-fat foods like plain rice, broiled chicken, toast, and yogurt ? Drink plenty of fluids. If you have kidney, heart, or liver disease and have to limit fluids, talk with your doctor before you increase the amount of fluids you drink. ? You may notice that your bowel movements are not regular right after your surgery. This is common. Try to avoid constipation and straining with bowel movements. You may want to take a fiber supplement every day. If you have not had a bowel movement after a couple of days, ask your doctor about taking a mild laxative. Medicines ? Take pain medicines exactly as directed. 1. If Dr. Maloney gave you a prescription medicine for pain, take lt as prescribed. 2. Do not take two or more pain medicines at the same time unless the doctor told you to. Many pain medicines have acetaminophen, which is Tylenol. Too much acetaminophen {Tylenol) can be harmful. 3. If you think your pain pill is making you sick to your stomach: 4. Take your pills after meals (unless your doctor has told you not to). 5. Ask your Dr. for a different pain pill. Incisioncare ? Remove your dressing 48 hours after your surgery. Ok to shower and get the incision wet. Do not overtly wash your incision. When done, pad dry, leave open to air thereafter. Avoid creams and ointments directly on your incision. ? Your sutures in the incision will dissolve and fall out on their own. ? Keep the area clean and dry. You may cover it with a gauze bandage if it weeps or rubs against clothing; if you choose to do this, change the dressing everyday. Other instructions ? Use a heating pad, hot water bottle, or gentle massage on your back to reduce stiffness. Avoid putting heat on your incision When should you call for help? ? Call 911 anytime you think you may need emergency care. For example, call if: ? You pass out (lose consciousness). ? You have sudden chest pain and shortness of breath, or you cough upblood. ? You cannot swallow. ? You have severe pain in your neck or back. ? Call your or seek immediate medical care if: ? You have pain that does not get better after you take pain pills. ? You have loose stitches, or your incision comes open. ? You have blood or fluid draining from the incision. ? You have signs of infection, such as: 1. Increased pain, swelling, warmth, or redness. 2. Red streaks leading from the site. 3. Pus draining from the site. 4. Swollen lymph nodes in your neck or armpits. 5. A fever. ? You have severe pain in your arms. ? You have new or increased weakness or numbness in your arms. ? Watch closely for any changes in your health, and be sure to contact your doctor if: ? You do not have a bowel movement after taking a laxative. Discharge Attestations Time Spent in Discharge Care*: less than 30 min Quality Metrics Clinical Quality Measures [ No reported AMI, CVA or VTE this stay] Coding Level of Care Code Acute g DC note Diagnoses Status post cervical spinal fusion Z98.1
== END 2021-05-11 12:00 | disposition home health service (06) | DRG 460 ==
LOC: MEDSURG 17:34
PROVIDERS: Admitting Provider Orthopaedic Surgery; PCP Family Medicine; Visit Provider Orthopaedic Surgery
PROC: 0RG6071 Fusion of Thoracic Vertebral Joint with Autologous Tissue Substitute, Posterior Approach, Posterior Column, Open Approach (ICD-10-PCS; CPT 22600; principal; 2021-05-09 11:40)
DX: M47.12 Other spondylosis with myelopathy, cervical region (principal); M48.02 Spinal stenosis, cervical region; I65.29 Occlusion and stenosis of unspecified carotid artery; Z86.73 Personal history of transient ischemic attack (TIA), and cerebral infarction without residual deficits; E78.2 Mixed hyperlipidemia; I10 Essential (primary) hypertension; I48.0 Paroxysmal atrial fibrillation; I27.20 Pulmonary hypertension, unspecified; Z96.651 Presence of right artificial knee joint; Z87.891 Personal history of nicotine dependence; Z98.1 Arthrodesis status; Z79.891 Long term (current) use of opiate analgesic; Z79.82 Long term (current) use of aspirin
CPT/HCPCS: 36415; 51702; 72040; 76000; 80053; 85025; 93005; 96372; 97116; 97161; C1713; J0330; J1100; J1170; J1200; J1650; J1885; J2250; J2405; J2704; J3010; J3370; J3490; J7030

== ENCOUNTER 2021-05-16 03:29 | Inpatient (IN) | payer MEDICARE, MEDICAID, SELFPAY ==
[2021-05-16] VITALS (16 sets, daily range): BP systolic 94–161; BP diastolic 47–81; PULSE 61–117; RESP 16–20; TEMP 36.6–38.3; O2SAT 90–98; BMI 27.4
--- NOTE | 2021-05-16 03:47 | XRR_ITS ---
PROCEDURE INFORMATION: Exam: XR Chest Exam date and time: 05/16/2021 3:47 AM Age: 71 years old Clinical indication: Fever; Prior surgery; Surgery date: 3-7 days post-operative; Surgery type: Neck surgery TECHNIQUE: Imaging protocol: XR of the chest. Views: 1 view. COMPARISON: CR XR chest 1V portable [id number] 01/12/2021 11:45 AM FINDINGS: Lungs: Unremarkable. No consolidation. Pleural spaces: Unremarkable. No pleural effusion. No pneumothorax. Heart/Mediastinum: Unremarkable. No cardiomegaly. Bones/joints: Fusion hardware is present in the cervical spine. XR/XR chest 1V portable [id number] IMPRESSION: No acute disease.
[2021-05-16] MEDS: ondansetron 2 mg/ML SDV 2 mL 4 MG IVP (04:02)
[2021-05-16] MEDS: morphine 4 mg/mL SDV 1 mL 8 MG IVP (04:04)
[2021-05-16] MEDS: sodium chloride 0.9% 500 ML IV (04:04)
[2021-05-16 04:13] LABS: Basophils # 0.1 10^3/uL (0.0-0.1); Basophils % 0.3 %; Eosinophils # 0.3 10^3/uL (0.0-0.8); Eosinophils % 1.5 %; Hematocrit 34.1 % (37.0-47.0); Hemoglobin 10.8 g/dL (11.5-15.3); Lymphocytes # 2.7 10^3/uL (0.8-4.8); Lymphocytes % 13.1 %; Mean Corpuscular HGB Conc 31.7 g/dL (30.0-36.0); Mean Corpuscular Hemoglobin 30.7 pg (28.0-34.0); Mean Corpuscular Volume 96.9 fl (81-99); Mean Platelet Volume 10.9 fL (7.4-10.4); Monocytes # 2.4 10^3/uL (0.2-0.9); Monocytes % 11.6 %; Neutrophils # 15.02 10^3/uL (1.8-7.7); Neutrophils % 72.9 %; Nucleated Red Blood Cells % 0 %; Platelet Count 351 10^3/cmm (130-400); Red Blood Count 3.52 10^6/uL (4.1-5.3); Red Cell Distribution Width 13.6 % (12.1-15.1); White Blood Count 20.6 10^3/uL (4.0-10.0)
[2021-05-16 04:25] LABS: Alanine Aminotransferase 41 U/L (0-33); Albumin Level 3.8 g/dL (3.5-5.2); Alkaline Phosphatase 111 IU/L (35-105); Aspartate Amino Transferase 24 U/L (0-32); Blood Urea Nitrogen 11 mg/dL (8-23); C Reactive Protein 103.4 mg/L (0.0-4.9); Calcium 8.5 mg/dL (8.5-10.5); Carbon Dioxide 31 mmol/L (22-29); Chloride 100 mmol/L (98-107); Creatinine Clr Calc Pharmacy 63.8902; Globulin 2.9 g/dL (1.3-4.6); Glomerular Filtration Rate 98.8 mL/min (90-130); Glucose 114 mg/dL (65-115); Osmolality Calculated 288 mOsm/kg (285-295); Sodium 139 mmol/L (136-145); Total Bilirubin 0.2 mg/dL (0.15-1.2); Total Protein 6.7 g/dL (6.6-8.7)
--- NOTE | 2021-05-16 04:36 | CTR_ITS ---
PROCEDURE INFORMATION: Exam: CT Abdomen And Pelvis With Contrast Exam date and time: 05/16/2021 4:36 AM Age: 71 years old Clinical indication: Fever; Abdominal pain; Prior surgery; Surgery type: Appy, gb, gastric sleeve, tubal, ovaries, back x 4; Additional info: Fever abdominal pain TECHNIQUE: Imaging protocol: Computed tomography of the abdomen and pelvis with contrast. Radiation optimization: All CT scans at this facility use at least one of these dose optimization techniques: automated exposure control; mA and/or kV adjustment per patient size (includes targeted exams where dose is matched to clinical indication); or iterative reconstruction. Contrast material: OMNI 300; Contrast volume: 75 ml; Contrast route: INTRAVENOUS (IV); COMPARISON: CT abdomen pelvis w con* [id number] 10/01/2018 2:32 PM RADIATION DOSE METRICS: Total DLP (mGy-cm): 1725.16 FINDINGS: Lungs: The lung bases are clear. No effusion Liver: Normal. No mass. Gallbladder and bile ducts: There has been a cholecystectomy. Mild biliary dilation, consistent with prior cholecystectomy. Pancreas: Normal. No ductal dilation. Spleen: Normal. No splenomegaly. Adrenal glands: Normal. No mass. Kidneys and ureters: There is a subcentimeter low-attenuation lesion/lesions, of the left kidney which are too small to accurately characterize by CT. Stomach and bowel: Gastric sleeve procedure has been performed. Mild amount of formed stool in the colon. There are few loops of mildly prominent small bowel , nonspecific but may be seen with gastroenteritis. Appendix: Appendix has been removed. Intraperitoneal space: Unremarkable. No free air. No significant fluid collection. Vasculature: Unremarkable. No abdominal aortic aneurysm. Lymph nodes: Unremarkable. No enlarged lymph nodes. Urinary bladder: Unremarkable as visualized. Reproductive: Unremarkable as visualized. Bones/joints: Unremarkable. No acute fracture. Soft tissues: Unremarkable. Other findings: 2.3 cm right renal cyst. CT/CT abdomen pelvis w con* [id number] IMPRESSION: 1. Mild constipation. 2. There are few loops of mildly prominent small bowel , nonspecific but may be seen with gastroenteritis. COMMENTS: Consistent with the [employer]'s Incidental Findings Committee white paper (J Am Farida Radiol 2018): Any incidental renal lesion less than 1 cm or classified as too small to characterize, or any incidental cystic renal lesion characterized as simple-appearing, is likely benign. No follow-up imaging is recommended for these lesions per consensus recommendations based on imaging criteria.
--- NOTE | 2021-05-16 04:36 | CTR_ITS ---
PROCEDURE INFORMATION: Exam: CT Cervical Spine With Contrast Exam date and time: 05/16/2021 4:36 AM Age: 71 years old Clinical indication: Other: Fever; Prior surgery; Surgery date: 3-7 days post-operative; Surgery type: Cervical fusion; Additional info: Fever post operative cervical fusion TECHNIQUE: Imaging protocol: Computed tomography images of the cervical spine with intravenous contrast. Radiation optimization: All CT scans at this facility use at least one of these dose optimization techniques: automated exposure control; mA and/or kV adjustment per patient size (includes targeted exams where dose is matched to clinical indication); or iterative reconstruction. Contrast material: OMNI 300; Contrast volume: 75 ml; Contrast route: INTRAVENOUS (IV); COMPARISON: MR cervical spine wo/w [id number] 03/14/2021 10:34 AM RADIATION DOSE METRICS: Total DLP (mGy-cm): 635.15 FINDINGS: Bones/joints: There is normal vertebral body alignment. The dens is intact. The lateral masses of C1 are symmetric. There is posterior fusion hardware from C5 to T2. Laminectomies from C5-C7. No fracture. Discs/Spinal canal/Neural foramina: Craniocervical articulation is normal. Intact anterior cervical fixation hardware C3-C5. Lungs: Lung apices are normal. Soft tissues: Fluid collection extends from the laminectomy defect posteriorly into the subcutaneous tissues and measures approximately 6.1 by 6.8 by 5.0 cm. Fluid collection may be secondary to postoperative seroma. Infection is not completely excluded. Small amounts of postoperative gas are present. CT/CT cervical spine w con [id number] IMPRESSION: 1. Fluid collection extends from the laminectomy defect posteriorly into the subcutaneous tissues and measures approximately 6.1 by 6.8 by 5.0 cm. Fluid collection may be secondary to postoperative seroma. Infection is not completely excluded. 2. No fracture. 3. C5-C7 laminectomy. 4. Posterior fusion hardware placement C5-T2. 5. Stable anterior cervical hardware.
--- NOTE | 2021-05-16 04:37 | ED_ITS ---
Documented by User: Misha Lynn DO 05/16/21 06:03 HPI - Neck Pain/Injury General: Chief Complaint: Neck Pain/Injury Stated Complaint: NECK PAIN Time Seen by Provider: 05/16/21 03:37 History of Present Illness: 8-year-old female who had cervical fusion surgery 7 days ago. She presents with worsening neck pain for the past 3 days or so. She states that she has had a temperature as high as 100.6 at home. She denies any coughing. She says she has had some generalized belly pain and that she believes her diverticulitis is acting up again . Pain to the neck is nonradicular. No drainage from the operation incision MD complaint: neck pain and other Onset (ago): day(s) Place: home Severity: severe Quality: sharp and stabbing Duration: constant and progressively worsening Relieving factors: none Exacerbating factors: none Context: other Associated symptoms: Reports fevers/chills, headache(s) and nausea; Denies dysphagia or difficulty walking Treatments prior to arrival: prescription analgesic Review of Systems Const: Reports: fever(s) and chills Eyes: Denies: change in vision ENMT: Denies: throat pain Card: Denies: chest pain Resp: Denies: dyspnea, productive cough or non-productive cough GI: Reports: nausea; Denies: dysphagia : Denies: difficulty voiding Musc: Reports: neck pain Skin/Breast: Denies: rash Neuro: Reports: headache(s); Denies: difficulty walking PFSH ED PFSH: Medical History Carotid stenosis RM (dyspnea on exertion) History of CVA (cerebrovascular accident) Hx of tuberculosis Hyperlipemia, mixed Hypertension Paroxysmal cardiac arrhythmia Pulmonary hypertension Ventricular arrhythmia Surgical History H/O: hysterectomy History of arthroplasty of right knee History of back surgery Hx of appendectomy Hx of cholecystectomy Hx of oophorectomy Family History Mother CAD (coronary artery disease) Father CAD (coronary artery disease) Brother CAD (coronary artery disease) Stroke Daughter Cancer Sister Dementia Denies family history of Diabetes Clotting disorder Chronic kidney disease (CKD) Suicide Anesthesia complication Bleeding disorder Lung disease Social History Smoking and tobacco status: former smoker Quit status (tobacco): has quit using tobacco Second hand smoke exposure: No Smoking risk assessment/counseling performed?: No Alcohol intake: never Physical Exam Const: GENERAL APPEARANCE: cooperative and frail appearing (Mildly) ORIENTATION/CONSCIOUSNESS: Yes awake, Yes oriented to person, Yes oriented to place and Yes oriented to time HENMT: COMMON NORMALS: normocephalic, atraumatic and Normal external nose present HEAD & SCALP: normocephalic and atraumatic FACE & SINUS: normal facial exam NOSE: Normal external nose present Eye: COMMON NORMALS: Equal, round and reactive pupils present and EOMs intact bilaterally PUPIL: Yes Equal, round and reactive pupils present Neck/C-Spine: OTHER: Patient examined in the c-collar. Remove gracefully with stabilization, to ch claudette incision which looks appropriate. No surrounding redness or streaking. No drainage Chest: COMMONS NORMALS: normal inspection of the chest Resp: EFFORT & INSPECTION: Yes tachypneic and No respiratory distress AUSCULTATION: wheezes Cardio: COMMON NORMALS: regular rhythm RATE: tachycardic RHYTHM: regular rhythm GI: COMMON NORMALS: Normal to inspection, nondistended, normoactive bowel jessa nds present and Soft to palpation PALPATION: Yes Soft to palpation and Yes Tenderness to palpation present (GI) (Diffuse) : COMMON NORMALS: Yes no CVA tenderness BLADDER/KIDNEY EXAM: Yes no CVA tenderness Back/Pelvis: COMMON NORMALS: no CVA tenderness Neuro: URIEL COMA SCALE: document GCS findings [place] coma scale eye opening: Spontaneous [place] coma scale verbal response: Orientated [place] coma scale motor response: Obey commands [place] coma scale total score: 15 SENSORIUM/ORIENTATION: Yes oriented to person, Yes oriented to place and Yes or iented to time Skin: COMMON NORMALS: no rashes or lesions noted GENERAL SKIN EXAM: no rashes or lesions noted Course Vital Signs: Vital signs: Vital Signs Temperature 99.3 F 05/16/21 03:34 Pulse Rate 100 05/16/21 09:00 Respiratory Rate 18 05/16/21 09:00 Blood Pressure 138/69 05/16/21 09:00 Pulse Oximetry 96 05/16/21 09:00 MDM - Neck Pain/Injury Medical Decision Making 71-year-old female 1 week postoperative posterior cervical fusion. Leukocytosis of 21. CRP is 100. Chest x-ray is negative. CT of the belly shows mildly prominent small bowel loops nonspecific, but could be gastroenteritis. The patient has not had any vomiting or diarrhea. Urinalysis is negative for UTI. Hemoglobin is 11. Lactic is only 0.4. CT of the cervical spine shows a fluid collection that is 6 x 7 x 5 cm extending from the laminectomy defect posteriorly in the subcutaneous soft tissues. We will make an attempt to call her surgeon who is not on service. Patient will be checked out to Dr. Dunham for continued care. She has received 1 L of IV fluid, vancomycin, and Levaquin, chosen due to multiple listed antibiotic allergies. Lab Data : 05/16/21 03:35 05/16/21 03:35 Radiology Impressions Chest X-Ray 05/16/21 03:47 IMPRESSION: No acute disease. Abdomen/Pelvis CT 05/16/21 04:36 IMPRESSION: 1. Mild constipation. 2. There are few loops of mildly prominent small bowel , nonspecific but may be seen with gastroenteritis. COMMENTS: Consistent with the [employer]'s Incidental Findings Committee white paper (J Am Farida Radiol 2018): Any incidental renal lesion less than 1 cm or classified as too small to characterize, or any incidental cystic renal lesion characterized as simple-appearing, is likely benign. No follow-up imaging is recommended for these lesions per consensus recommendations based on imaging criteria. Cervical Spine CT 05/16/21 04:36 IMPRESSION: 1. Fluid collection extends from the laminectomy defect posteriorly into the subcutaneous tissues and measures approximately 6.1 by 6.8 by 5.0 cm. Fluid collection may be secondary to postoperative seroma. Infection is not completely excluded. 2. No fracture. 3. C5-C7 laminectomy. 4. Posterior fusion hardware placement C5-T2. 5. Stable anterior cervical hardware. Laboratory Results WBC 20.6 10^3/uL (4.0-10.0) H 05/16/21 03:35 RBC 3.52 10^6/uL (4.1-5.3) L 05/16/21 03:35 Hgb 10.8 g/dL (11.5-15.3) L 05/16/21 03:35 Hct 34.1 % (37.0-47.0) L 05/16/21 03:35 MCV 96.9 fl (81-99) 05/16/21 03:35 MCH 30.7 pg (28.0-34.0) 05/16/21 03:35 MCHC 31.7 g/dL (30.0-36.0) 05/16/21 03:35 RDW 13.6 % (12.1-15.1) 05/16/21 03:35 Plt Count 351 10^3/cmm (130-400) 05/16/21 03:35 MPV 10.9 fL (7.4-10.4) H 05/16/21 03:35 Neut % (Auto) 72.9 % 05/16/21 03:35 Lymph % (Auto) 13.1 % 05/16/21 03:35 Hooker % (Auto) 11.6 % 05/16/21 03:35 Eos % (Auto) 1.5 % 05/16/21 03:35 Baso % (Auto) 0.3 % 05/16/21 03:35 Neut # (Auto) 15.02 10^3/uL (1.8-7.7) H 05/16/21 03:35 Lymph # (Auto) 2.7 10^3/uL (0.8-4.8) 05/16/21 03:35 [place] # (Auto) 2.4 10^3/uL (0.2-0.9) H 05/16/21 03:35 Eos # (Auto) 0.3 10^3/uL (0.0-0.8) 05/16/21 03:35 Baso # (Auto) 0.1 10^3/uL (0.0-0.1) 05/16/21 03:35 Nucleated RBC % (auto) 0 % 05/16/21 03:35 Nucleated RBCs # 0.0 /100WBC 05/16/21 03:35 Sodium 139 mmol/L (136-145) 05/16/21 03:35 Potassium 4.0 mmol/L (3.5-5.1) 05/16/21 03:35 Chloride 100 mmol/L (98-107) 05/16/21 03:35 Carbon Dioxide 31 mmol/L (22-29) H 05/16/21 03:35 Anion Gap 12.0 (5-19) 05/16/21 03:35 BUN 11 mg/dL (8-23) 05/16/21 03:35 Creatinine 0.6 mg/dL (0.5-0.9) 05/16/21 03:35 GFR Calculation 98.8 mL/min (90-130) 05/16/21 03:35 Glucose 114 mg/dL (65-115) 05/16/21 03:35 Calculated Osmolality 288 mOsm/kg (285-295) 05/16/21 03:35 Lactate 0.4 mmol/L (0.5-2.2) L 05/16/21 04:15 Calcium 8.5 mg/dL (8.5-10.5) 05/16/21 03:35 Total Bilirubin 0.2 mg/dL (0.15-1.2) 05/16/21 03:35 AST 24 U/L (0-32) 05/16/21 03:35 ALT 41 U/L (0-33) H 05/16/21 03:35 Alkaline Phosphatase 111 IU/L (35-105) H 05/16/21 03:35 C-Reactive Protein 103.4 mg/L (0.0-4.9) H 05/16/21 03:35 Total Protein 6.7 g/dL (6.6-8.7) 05/16/21 03:35 Albumin 3.8 g/dL (3.5-5.2) 05/16/21 03:35 Globulin 2.9 g/dL (1.3-4.6) 05/16/21 03:35 Procalcitonin 0.10 ng/mL (0-0.5) 05/16/21 03:35 Urine Color Yellow (Yellow) 05/16/21 04:45 Urine Appearance Sl cloudy (CLEAR) A 05/16/21 04:45 Urine pH 8 (5-7) H 05/16/21 04:45 Ur Specific [place] 1.015 (1.005-1.030) 05/16/21 04:45 Urine Protein Neg (Negative) 05/16/21 04:45 Urine Glucose (UA) Norm (Normal) 05/16/21 04:45 Urine Ketones Negative (Negative) 05/16/21 04:45 Urine Blood Neg (Negative) 05/16/21 04:45 Urine Nitrate Negative (Negative) 05/16/21 04:45 Urine Bilirubin Neg (Negative) 05/16/21 04:45 Prot Sulfosalicylic Acd Negative (Negative) 05/16/21 04:45 Urine Urobilinogen Norm mg/dL (Negative) 05/16/21 04:45 Ur Leukocyte Esterase Negative (Negative) 05/16/21 04:45 Urine RBC 0-4 /hpf (0-2) H 05/16/21 04:45 Urine WBC 0-4 /hpf (0-5) H 05/16/21 04:45 Ur Squamous Epith Cells 10-15 /hpf (0-5) H 05/16/21 04:45 Amorphous Sediment 2+ /hpf 05/16/21 04:45 Urine Bacteria 1+ /hpf (NONE) H 05/16/21 04:45 Discharge Plan Discharge Patient Disposition: Admitted As Inpatient Clinical Impression: Abscess, neck, H/O neck surgery Condition: Stable Prescriptions: No Action (DME) Night splint See Rx Instructions .Route .MEDSUPPLY Qty: 1 0RF Rx Instructions: As directed oxycodone 10 mg tablet 10 mg PO Q4H PRN (Reason: pain) 7 Days Qty: 40 0RF multivitamin [Multiple Vitamins] Tablet 1 tab PO DAILY 0RF amlodipine 10 mg tablet 10 mg PO QAM 0RF metoprolol tartrate 50 mg tablet 50 mg PO BID 0RF vitamin B complex Tablet 1 tab PO QAM 0RF lisinopril 40 mg tablet 40 mg PO QAM 0RF rosuvastatin 20 mg tablet 20 mg PO BEDTIME 0RF melatonin 10 mg Tablet 10 mg PO BEDTIME 0RF gabapentin 300 mg capsule 300 mg PO QID 0RF ondansetron HCl 8 mg tablet 8 mg PO TID PRN (Reason: Nausea And Vomiting) 0RF aspirin 81 mg Tablet,Delayed Release (Dr/Ec) 81 mg PO QAM 0RF diphenhydramine HCl [Benadryl] 25 mg Capsule 25 mg PO TID PRN (Reason: Allergy Symptoms) 0RF promethazine 25 mg tablet 25 - 50 mg PO Q8H PRN (Reason: Nausea And Vomiting) 0RF hydrocodone-acetaminophen 10-325 mg tablet 1 tab PO QID PRN (Reason: Pain) 0RF esomeprazole magnesium 40 mg capsule,delayed release(DR/EC) 40 mg PO BEDTIME 0RF Belsomra 20 mg tablet 20 mg PO BEDTIME 0RF cholecalciferol (vitamin D3) [Vitamin D3] 125 mcg (5,000 unit) Tablet 125 mcg PO QAM 0RF Referrals: Del Galarza MD [Primary Care Provider] - Sign Out Sign Out Data: Patient Sign Out occurred on 05/16/21 at 06:11. Patient's care was discussed, and care was transferred from to Ludwig Beal DO. Coding Level of Care Code ED [facility] Agent for Chg Fwd Exam Comprehensive Documented by User: Ludwig Beal DO 05/16/21 10:17 HPI - Neck Pain/Injury General: Chief Complaint: Neck Pain/Injury Stated Complaint: NECK PAIN Time Seen by Provider: 05/16/21 03:37 PFSH ED PFSH: Medical History Carotid stenosis RM (dyspnea on exertion) History of CVA (cerebrovascular accident) Hx of tuberculosis Hyperlipemia, mixed Hypertension Paroxysmal cardiac arrhythmia Pulmonary hypertension Ventricular arrhythmia Surgical History H/O: hysterectomy History of arthroplasty of right knee History of back surgery Hx of appendectomy Hx of cholecystectomy Hx of oophorectomy Family History Mother CAD (coronary artery disease) Father CAD (coronary artery disease) Brother CAD (coronary artery disease) Stroke Daughter Cancer Sister Dementia Denies family history of Diabetes Clotting disorder Chronic kidney disease (CKD) Suicide Anesthesia complication Bleeding disorder Lung disease Social History Smoking and tobacco status: former smoker Quit status (tobacco): has quit using tobacco Second hand smoke exposure: No Smoking risk assessment/counseling performed?: No Alcohol intake: never Physical Exam Neuro: URIEL COMA SCALE: document GCS findings [place] coma scale total score: 15 Course Vital Signs: Vital signs: Vital Signs Temperature 99.3 F 05/16/21 03:34 Pulse Rate 100 05/16/21 09:00 Respiratory Rate 18 05/16/21 09:00 Blood Pressure 138/69 05/16/21 09:00 Pulse Oximetry 96 05/16/21 09:00 MDM - Neck Pain/Injury Medical Decision Making 71-year-old female 1 week postoperative posterior cervical fusion. Leukocytosis of 21. CRP is 100. Chest x-ray is negative. CT of the belly shows mildly prominent small bowel loops nonspecific, but could be gastroenteritis. The patient has not had any vomiting or diarrhea. Urinalysis is negative for UTI. Hemoglobin is 11. Lactic is only 0.4. CT of the cervical spine shows a fluid collection that is 6 x 7 x 5 cm extending from the laminectomy defect posteriorly in the subcutaneous soft tissues. We will make an attempt to call her surgeon who is not on service. Patient will be checked out to Dr. Dunham for continued care. She has received 1 L of IV fluid, vancomycin, and Levaquin, chosen due to multiple listed antibiotic allergies. Care assumed from Dr. Lynn at change of shift. I was able to get all the Dr. Pagan discussed the case will admit discussed with hospitalist IV antibiotics cultures have been done. Patient has required more for pain control. Discussed with the patient I also reviewed the chart and labs and examined her incision site incision site is clean there is no evidence of drainage no localized erythema or induration. Lab Data : 05/16/21 03:35 05/16/21 03:35 Radiology Impressions Chest X-Ray 05/16/21 03:47 IMPRESSION: No acute disease. Abdomen/Pelvis CT 05/16/21 04:36 IMPRESSION: 1. Mild constipation. 2. There are few loops of mildly prominent small bowel , nonspecific but may be seen with gastroenteritis. COMMENTS: Consistent with the [employer]'s Incidental Findings Committee white paper (J Am Farida Radiol 2018): Any incidental renal lesion less than 1 cm or classified as too small to characterize, or any incidental cystic renal lesion characterized as simple-appearing, is likely benign. No follow-up imaging is recommended for these lesions per consensus recommendations based on imaging criteria. Cervical Spine CT 05/16/21 04:36 IMPRESSION: 1. Fluid collection extends from the laminectomy defect posteriorly into the subcutaneous tissues and measures approximately 6.1 by 6.8 by 5.0 cm. Fluid collection may be secondary to postoperative seroma. Infection is not completely excluded. 2. No fracture. 3. C5-C7 laminectomy. 4. Posterior fusion hardware placement C5-T2. 5. Stable anterior cervical hardware. Laboratory Results WBC 20.6 10^3/uL (4.0-10.0) H 05/16/21 03:35 RBC 3.52 10^6/uL (4.1-5.3) L 05/16/21 03:35 Hgb 10.8 g/dL (11.5-15.3) L 05/16/21 03:35 Hct 34.1 % (37.0-47.0) L 05/16/21 03:35 MCV 96.9 fl (81-99) 05/16/21 03:35 MCH 30.7 pg (28.0-34.0) 05/16/21 03:35 MCHC 31.7 g/dL (30.0-36.0) 05/16/21 03:35 RDW 13.6 % (12.1-15.1) 05/16/21 03:35 Plt Count 351 10^3/cmm (130-400) 05/16/21 03:35 MPV 10.9 fL (7.4-10.4) H 05/16/21 03:35 Neut % (Auto) 72.9 % 05/16/21 03:35 Lymph % (Auto) 13.1 % 05/16/21 03:35 Hooker % (Auto) 11.6 % 05/16/21 03:35 Eos % (Auto) 1.5 % 05/16/21 03:35 Baso % (Auto) 0.3 % 05/16/21 03:35 Neut # (Auto) 15.02 10^3/uL (1.8-7.7) H 05/16/21 03:35 Lymph # (Auto) 2.7 10^3/uL (0.8-4.8) 05/16/21 03:35 [place] # (Auto) 2.4 10^3/uL (0.2-0.9) H 05/16/21 03:35 Eos # (Auto) 0.3 10^3/uL (0.0-0.8) 05/16/21 03:35 Baso # (Auto) 0.1 10^3/uL (0.0-0.1) 05/16/21 03:35 Nucleated RBC % (auto) 0 % 05/16/21 03:35 Nucleated RBCs # 0.0 /100WBC 05/16/21 03:35 Sodium 139 mmol/L (136-145) 05/16/21 03:35 Potassium 4.0 mmol/L (3.5-5.1) 05/16/21 03:35 Chloride 100 mmol/L (98-107) 05/16/21 03:35 Carbon Dioxide 31 mmol/L (22-29) H 05/16/21 03:35 Anion Gap 12.0 (5-19) 05/16/21 03:35 BUN 11 mg/dL (8-23) 05/16/21 03:35 Creatinine 0.6 mg/dL (0.5-0.9) 05/16/21 03:35 GFR Calculation 98.8 mL/min (90-130) 05/16/21 03:35 Glucose 114 mg/dL (65-115) 05/16/21 03:35 Calculated Osmolality 288 mOsm/kg (285-295) 05/16/21 03:35 Lactate 0.4 mmol/L (0.5-2.2) L 05/16/21 04:15 Calcium 8.5 mg/dL (8.5-10.5) 05/16/21 03:35 Total Bilirubin 0.2 mg/dL (0.15-1.2) 05/16/21 03:35 AST 24 U/L (0-32) 05/16/21 03:35 ALT 41 U/L (0-33) H 05/16/21 03:35 Alkaline Phosphatase 111 IU/L (35-105) H 05/16/21 03:35 C-Reactive Protein 103.4 mg/L (0.0-4.9) H 05/16/21 03:35 Total Protein 6.7 g/dL (6.6-8.7) 05/16/21 03:35 Albumin 3.8 g/dL (3.5-5.2) 05/16/21 03:35 Globulin 2.9 g/dL (1.3-4.6) 05/16/21 03:35 Procalcitonin 0.10 ng/mL (0-0.5) 05/16/21 03:35 Urine Color Yellow (Yellow) 05/16/21 04:45 Urine Appearance Sl cloudy (CLEAR) A 05/16/21 04:45 Urine pH 8 (5-7) H 05/16/21 04:45 Ur Specific [place] 1.015 (1.005-1.030) 05/16/21 04:45 Urine Protein Neg (Negative) 05/16/21 04:45 Urine Glucose (UA) Norm (Normal) 05/16/21 04:45 Urine Ketones Negative (Negative) 05/16/21 04:45 Urine Blood Neg (Negative) 05/16/21 04:45 Urine Nitrate Negative (Negative) 05/16/21 04:45 Urine Bilirubin Neg (Negative) 05/16/21 04:45 Prot Sulfosalicylic Acd Negative (Negative) 05/16/21 04:45 Urine Urobilinogen Norm mg/dL (Negative) 05/16/21 04:45 Ur Leukocyte Esterase Negative (Negative) 05/16/21 04:45 Urine RBC 0-4 /hpf (0-2) H 05/16/21 04:45 Urine WBC 0-4 /hpf (0-5) H 05/16/21 04:45 Ur Squamous Epith Cells 10-15 /hpf (0-5) H 05/16/21 04:45 Amorphous Sediment 2+ /hpf 05/16/21 04:45 Urine Bacteria 1+ /hpf (NONE) H 05/16/21 04:45 Discharge Plan Discharge Patient Disposition: Admitted As Inpatient Clinical Impression: Abscess, neck, H/O neck surgery Condition: Stable Prescriptions: No Action (DME) Night splint See Rx Instructions .Route .MEDSUPPLY Qty: 1 0RF Rx Instructions: As directed oxycodone 10 mg tablet 10 mg PO Q4H PRN (Reason: pain) 7 Days Qty: 40 0RF multivitamin [Multiple Vitamins] Tablet 1 tab PO DAILY 0RF amlodipine 10 mg tablet 10 mg PO QAM 0RF metoprolol tartrate 50 mg tablet 50 mg PO BID 0RF vitamin B complex Tablet 1 tab PO QAM 0RF lisinopril 40 mg tablet 40 mg PO QAM 0RF rosuvastatin 20 mg tablet 20 mg PO BEDTIME 0RF melatonin 10 mg Tablet 10 mg PO BEDTIME 0RF gabapentin 300 mg capsule 300 mg PO QID 0RF ondansetron HCl 8 mg tablet 8 mg PO TID PRN (Reason: Nausea And Vomiting) 0RF aspirin 81 mg Tablet,Delayed Release (Dr/Ec) 81 mg PO QAM 0RF diphenhydramine HCl [Benadryl] 25 mg Capsule 25 mg PO TID PRN (Reason: Allergy Symptoms) 0RF promethazine 25 mg tablet 25 - 50 mg PO Q8H PRN (Reason: Nausea And Vomiting) 0RF hydrocodone-acetaminophen 10-325 mg tablet 1 tab PO QID PRN (Reason: Pain) 0RF esomeprazole magnesium 40 mg capsule,delayed release(DR/EC) 40 mg PO BEDTIME 0RF Belsomra 20 mg tablet 20 mg PO BEDTIME 0RF cholecalciferol (vitamin D3) [Vitamin D3] 125 mcg (5,000 unit) Tablet 125 mcg PO QAM 0RF Referrals: Del Galarza MD [Primary Care Provider] - Sign Out Sign Out Data: Patient Sign Out occurred on 05/16/21 at 06:11. Patient's care was discussed, and care was transferred from to Ludwig Beal DO. Coding Level of Care Code ED [facility] Agent for [place]ri[place] Fw[place] Exam Comprehensive
[2021-05-16 04:51] LABS: Lactate (Lactic Acid level) 0.4 mmol/L (0.5-2.2)
[2021-05-16] MEDS: iohexol 300 mg/mL 100 mL Btl IV ×2 (05:03)
[2021-05-16 05:17] LABS: Add Urine Microscopic? YES; Bilirubin Urine Neg (Negative); Blood Urine Neg (Negative); Glucose Urine UA Norm (Normal); Ketones Urine Negative (Negative); Leukocyte Esterase Urine Negative (Negative); Nitrate Urine Negative (Negative); Protein Urine Neg (Negative); Specific Gravity, Urine 1.015 (1.005-1.030); Sulfosalicylic Acid Urine Negative (Negative); Urine Color Yellow (Yellow); Urobilinogen Urine Norm (Negative); pH Urine 8 (5-7)
[2021-05-16 05:19] LABS: Add Urine Culture? No; Amorphous Sediment Urine 2+ /hpf; Bacteria Urine 1+ /hpf; RBC Urine 0-4 /hpf (0-2); WBC Urine 0-4 /hpf (0-5)
[2021-05-16] MEDS: levofloxacin-dextrose 5 % 500 MG/100 ML PREMIX 100 MG IV (05:29)
[2021-05-16] MEDS: vancomycin 1,000 MG in sodium chloride 0.9% 250 ML 250 MG IV (06:31)
[2021-05-16] MEDS: morphine 4 mg/mL SDV 1 mL IVP ×3 (07:53→21:20)
--- NOTE | 2021-05-16 10:35 | P.HP_ITS ---
Providers/Chief Complaint Primary Care Provider: Del Galarza MD Chief Complaint: NECK PAIN History of Present Illness Constance Toussaint is a 71 year old female with a past medical history of carotid artery stenosis, history of CVA, history of hyperlipidemia, hypertension, pulmonary hypertension, history of paroxysmal cardiac arrhythmia, history of cervical spondylosis with myelopathy recent history of cervical neck surgery by Dr. Maloney, who presents [facility] due to increasing severe neck pain, with pain radiating down both arms. Patient tells me that since her surgery she had worsening neck pain, pain with range of motion, she is on cervical collar, pain then radiating down both arms, her pain medication would barely help. She came to the emergency room today as she started develop low- grade fevers, with fatigue, malaise, worsening pain. Currently no headache, no blurry vision, no nausea, no vomiting. No cough. No shortness of breath. No calf pain. No calf swelling, no sudden onset shortness of breath. No urinary or bowel incontinence. No saddle or perineal anesthesia. Does complain of pain with ambulation, but no weakness of her lower extremities. In the emergency room she was found to have leukocytosis of over 20,000, with a fluid collection in the laminectomy site, hospitalist team was called for admission Review of Systems Const: Reports: fever(s), fatigue and malaise Eyes: Denies: change in vision or blurry vision ENMT: Denies: nasal congestion Card: Denies: chest pain or palpitations Resp: Denies: dyspnea, productive cough, non-productive cough or wheezing GI: Denies: abdominal pain, nausea, vomiting, hematemesis or diarrhea : Denies: flank pain, dysuria or urinary frequency Musc: Reports: neck pain Skin/Breast: Denies: rash Neuro: Denies: headache(s), dizziness or vertigo Medications/Allergies Home Medications Medication Instructions Recorded Confirmed Last Taken Type amlodipine 10 mg tablet 10 mg PO QAM 08/07/19 05/16/21 01/12/21 05:00 History pt states threw up lisinopril 40 mg tablet 40 mg PO QAM 08/07/19 05/16/21 11/26/19 History metoprolol tartrate 50 mg tablet 50 mg PO BID 08/07/19 05/16/21 11/26/19 History multivitamin (Multiple Vitamins) 1 tab PO DAILY 08/07/19 05/16/21 11/26/19 History rosuvastatin 20 mg tablet 20 mg PO BEDTIME 08/07/19 05/16/21 11/25/19 History vitamin B complex 1 tab PO QAM 08/07/19 05/16/21 11/26/19 History melatonin 10 mg tablet 10 mg PO BEDTIME 11/26/19 05/16/21 11/25/19 History gabapentin 300 mg capsule 300 mg PO QID cap 07/21/20 05/16/21 Unknown History aspirin 81 mg tablet,delayed 81 mg PO QAM 01/12/21 05/16/21 Unknown History release diphenhydramine HCl 25 mg capsule 25 mg PO TID PRN 01/12/21 05/16/21 01/12/21 History (Benadryl) promethazine 25 mg tablet 25 - 50 mg PO Q8H PRN 01/12/21 05/16/21 Unknown History Night splint #1 ea 02/28/21 05/16/21 Unknown Rx hydrocodone 10 mg-acetaminophen 1 tab PO QID PRN 05/09/21 05/16/21 Unknown History 325 mg tablet cholecalciferol (vitamin D3) 125 125 mcg PO QAM 05/10/21 05/16/21 Unknown History mcg (5,000 unit) tablet (Vitamin D3) esomeprazole magnesium 40 mg 40 mg PO BEDTIME 05/10/21 05/16/21 Unknown History capsule,delayed release suvorexant 20 mg tablet (Belsomra) 20 mg PO BEDTIME 05/10/21 05/16/21 Unknown History oxycodone 10 mg tablet 10 mg PO Q4H PRN 7 Days #40 tab 05/12/21 05/16/21 Unknown Rx ondansetron HCl 8 mg tablet 8 mg PO TID PRN 05/16/21 05/16/21 Unknown History Allergies Allergy/AdvReac Type Severity Reaction Status Date / Time aspirin [From Norgesic] Allergy ADR-Itching Verified 05/16/21 07:57 caffeine [From Norgesic] Allergy ADR-Itching Verified 05/16/21 07:57 cephalexin [From Keflex] Allergy ALGY-Difficulty Verified 05/16/21 07:57 Breathing codeine Allergy Unknown Verified 05/16/21 07:57 orphenadrine [From Norgesic] Allergy ADR-Itching Verified 05/16/21 07:57 Penicillins Allergy Unknown Verified 05/16/21 07:57 pentazocine [From Talwin] Allergy Unknown Verified 05/16/21 07:57 Sulfa (Sulfonamide Allergy Unknown Verified 05/16/21 07:57 Antibiotics) sulfamethoxazole Allergy ALGY-Difficulty Verified 05/16/21 07:57 [From Bactrim] Breathing tiagabine [From Gabitril] Allergy Unknown Verified 05/16/21 07:57 trimethoprim [From Bactrim] Allergy ALGY-Difficulty Verified 05/16/21 07:57 Breathing zonisamide [From Zonegran] Allergy Unknown Verified 05/16/21 07:57 PFSH Acute PFSH: Medical History (Updated 05/16/21 @ 10:17 by Ludwig Beal DO) Carotid stenosis RM (dyspnea on exertion) History of CVA (cerebrovascular accident) Hx of tuberculosis Hyperlipemia, mixed Hypertension Paroxysmal cardiac arrhythmia Pulmonary hypertension Ventricular arrhythmia Surgical History (Updated 05/16/21 @ 10:42 by Fredo Baron MD) H/O: hysterectomy History of arthroplasty of right knee History of back surgery History of tonsillectomy and adenoidectomy Hx of appendectomy Hx of cholecystectomy Hx of neck surgery Hx of oophorectomy Hx of oophorectomy Family History Mother CAD (coronary artery disease) Father CAD (coronary artery disease) Brother CAD (coronary artery disease) Stroke Daughter Cancer Sister Dementia Denies family history of Diabetes Clotting disorder Chronic kidney disease (CKD) Suicide Anesthesia complication Bleeding disorder Lung disease Social History Smoking and tobacco status: former smoker Quit status (tobacco): has quit using tobacco Second hand smoke exposure: No Smoking risk assessment/counseling performed?: No Alcohol intake: never Vitals/I&O/Wt Last Vital Signs Temp 99.3 F 05/16/21 03:34 Pulse 100 05/16/21 09:00 Resp 18 05/16/21 09:00 BP 138/69 05/16/21 09:00 Pulse Ox 96 05/16/21 09:00 Weight last 48 hrs Weight 72.575 kg Physical Exam Const: COMMON NORMALS: no acute distress and patient oriented x3 HENMT: COMMON NORMALS: normocephalic HEAD & SCALP: normocephalic Neck/C-Spine: COMMON NORMALS: no JVD OTHER: Currently in a cervical collar Resp: COMMON NORMALS: normal respiratory effort, No retractions, No use of accessory muscles and clear to auscultation bilaterally AUSCULTATION: clear to auscultation bilaterally Cardio: COMMON NORMALS: no JVD, regular rate, regular rhythm, S1 normal heart sound present and S2 normal heart sound present RATE: regular rate RHYTHM: regular rhythm HEART SOUNDS: S1 normal heart sound present and S2 normal heart sound present GI: COMMON NORMALS: Normal to inspection, nondistended, normoactive bowel sounds present, Soft to palpation, non-tender, No hepatosplenomegaly present, no masses and no bruits PALPATION: Yes Soft to palpation and Yes No hepatosplenomegaly present Extremity: COMMON NORMALS: capillary refill normal, no clubbing, cyanosis or edema, no calf tenderness and no pedal edema Neuro: COMMON NORMALS: patient oriented x3 Psych: COMMON NORMALS: mental status grossly normal Data : 05/16/21 03:35 05/16/21 03:35 A&P Assessment and plan (1) Status post cervical spinal fusion: Status: Acute (2) H/O neck surgery: Status: Acute (3) Hyperlipemia, mixed: Status: Acute (4) Hypertension: Status: Acute Qualifiers: Hypertension type: essential hypertension Qualified Code(s): I10 - E ssential (primary) hypertension (5) Carotid stenosis: Status: Acute Qualifiers: Laterality: bilateral Qualified Code(s): I65.23 - Occlusion and stenosis of bilateral carotid arteries (6) Ventricular arrhythmia: Status: Acute (7) Abscess, neck: Status: Acute Plan History of laminectomy -Now with postoperative fluid collection -1. Fluid collection extends from the laminectomy defect posteriorly into the subcutaneous tissues and measures approximately 6.1 by 6.8 by 5.0 cm. Fluid collection may be secondary to postoperative seroma. Infection is not completely excluded. 2. No fracture. 3. C5-C7 laminectomy. 4. Posterior fusion hardware placement C5-T2. 5. Stable anterior cervical hardware. -WBC 20.6, pro-Mark 0.1, CRP 103.4 Plan -Continue vancomycin, Zosyn -Speech therapy eval -PT OT -Orthopedic service on consult -DNR, okay with intubation, mechanical ventilation -Hold anticoagulation, SCDs for DVT prophylaxis Hypertension Hyperlipidemia Attestations Medical Necessity Statement*: Patient requires hospitalization for postsurgical seroma versus blood versus possible infection, requiring inpatient mission, greater than 2 midnights Coding Level of Care Code Acute Stenographer Print Shop for g Fwd Diagnoses Status post cervical spinal fusion Z98.1 H/O neck surgery Z98.890 Hyperlipemia, mixed E78.2 Hypertension I10 Hypertension type: essential hypertension Carotid stenosis I65.23 Laterality: bilateral Ventricular arrhythmia I49.9 Abscess, neck L02.11
--- NOTE | 2021-05-16 10:46 | PM.PN ---
Subjective Subjective: POD 7 Increased Neck pain with reported Numbness in RUE. Denies Swallowing Difficulty. Home temp have beenbelow 101as reported by Patient, denies Motor strength loss. No drainage from wound. Vitals/I&O/Wt Last Vital Signs Temp 99.3 F 05/16/21 03:34 Pulse 100 05/16/21 09:00 Resp 18 05/16/21 09:00 BP 138/69 05/16/21 09:00 Pulse Ox 96 05/16/21 09:00 Weight last 48 hrs Weight 160 lb Physical Exam Narrative: Patient sitting on the bedside commode in no apparent distress . patient is alert and oriented x3 with a good general appearance normal Mood and affect. Mild tenderness with palpation about the incisional site. Incision appears to be healing nicely without signs of erythema or drainage. No signs of infection. Good motor strength throughout both upper extremities. Appears to fire in all motor groups with 5/5 strength. Hands are warm good cap refill in all digits. Normal sensation to light touch in all dermatomal areas. Data : 05/16/21 03:35 05/16/21 03:35 A&P Assessment and plan (1) Status post cervical spinal fusion: Patient is 7 days post surgical instrumented fusion decompression posteriorly. Posterior cervicals do have increased pain as well as hematoma collections. She does not appear to be septic. Certainly continue to follow and will discuss with Dr. Maloney. Consider Decadron to help calm down her flareup. Continue to follow in the hospital. Status: Acute Attestations Medical Necessity Statement*: s/p posterior Decompression with intractable neck pain Coding Level of Care Code Acute Transportation Department Head for Harriett Palma Diagnoses Status post cervical spinal fusion Z98.1
[2021-05-16 10:47] LABS: Adenovirus Not Detected (NOT DETECT); Chlamydia Pneumoniae Not Detected (NOT DETECT); Coronavirus 229E,HKU1,NL63,OC4 Not Detected (NOT DETECT); Human Metapneumovirus Not Detected (NOT DETECT); Human Rhinovirus/Enterovirus Not Detected (NOT DETECT); Influenza A Not Detected (NOT DETECT); Influenza A H1 Not Detected (NOT DETECT); Influenza A H1-2009 Not Detected (NOT DETECT); Influenza A H3 Not Detected (NOT DETECT); Influenza B Not Detected (NOT DETECT); Mycoplasma Pneumoniae Not Detected (NOT DETECT); Parainfluenza Virus Type 1 Not Detected (NOT DETECT); Parainfluenza Virus Type 2 Not Detected (NOT DETECT); Parainfluenza Virus Type 3 Not Detected (NOT DETECT); Parainfluenza Virus Type 4 Not Detected (NOT DETECT); Respiratory Syncytial Virus A Not Detected (NOT DETECT); Respiratory Syncytial Virus B Not Detected (NOT DETECT); SARS-COV-2 Not Detected (NOT DETECT)
[2021-05-16 11:14] LABS: C Reactive Protein 125.5 mg/L (0.0-4.9)
[2021-05-16] MEDS: pantoprazole 40 mg SDV IVP (12:49)
[2021-05-16] MEDS: gabapentin 300 mg Capsule PO ×3 (12:49→20:30)
[2021-05-16] MEDS: sodium chloride 0.9% 1,000 ML 100 ML IV (14:14)
[2021-05-16] MEDS: HYDROmorphone 1 mg/mL INJ 1 mL IVP (15:54)
[2021-05-16] MEDS: acetaminophen 325 mg Tablet 650 MG PO (15:54)
[2021-05-16] MEDS: vancomycin 750 MG in sodium chloride 0.9% 250 ML 250 MG IV (17:48)
[2021-05-16] MEDS: metoprolol tartrate 50 mg Tablet PO (17:51)
[2021-05-16] MEDS: atorvastatin 40 mg Tablet 80 MG PO (20:30)
[2021-05-16] MEDS: pantoprazole DR 40 mg Tablet PO (20:30)
[2021-05-17] VITALS (16 sets, daily range): BP systolic 97–135; BP diastolic 57–74; PULSE 87–103; RESP 16–18; TEMP 36.6–37.1; O2SAT 92–95
[2021-05-17] MEDS: acetaminophen 325 mg Tablet 650 MG PO ×2 (00:13→13:50)
[2021-05-17] MEDS: morphine 4 mg/mL SDV 1 mL IVP ×4 (02:24→23:28)
[2021-05-17] MEDS: sodium chloride 0.9% 1,000 ML 100 ML IV ×2 (02:25→07:54)
[2021-05-17 05:23] LABS: Basophils # 0.1 10^3/uL (0.0-0.1); Basophils % 0.3 %; Eosinophils # 0.2 10^3/uL (0.0-0.8); Eosinophils % 1.4 %; Hematocrit 30.6 % (37.0-47.0); Hemoglobin 9.4 g/dL (11.5-15.3); Lymphocytes # 2.5 10^3/uL (0.8-4.8); Lymphocytes % 17.1 %; Mean Corpuscular HGB Conc 30.7 g/dL (30.0-36.0); Mean Corpuscular Hemoglobin 29.9 pg (28.0-34.0); Mean Corpuscular Volume 97.5 fl (81-99); Mean Platelet Volume 10.8 fL (7.4-10.4); Monocytes # 1.5 10^3/uL (0.2-0.9); Monocytes % 9.8 %; Neutrophils # 10.46 10^3/uL (1.8-7.7); Neutrophils % 70.7 %; Nucleated Red Blood Cells % 0 %; Platelet Count 335 10^3/cmm (130-400); Red Blood Count 3.14 10^6/uL (4.1-5.3); Red Cell Distribution Width 13.6 % (12.1-15.1); White Blood Count 14.8 10^3/uL (4.0-10.0)
[2021-05-17] MEDS: aspirin 81 mg EC Tablet PO (05:28)
[2021-05-17] MEDS: HYDROmorphone 1 mg/mL INJ 1 mL IVP ×3 (05:28→20:53)
[2021-05-17] MEDS: cholecalciferol (vitamin D3) 5,000 unit Tablet 5000 UNIT PO (05:28)
[2021-05-17 05:42] LABS: Alanine Aminotransferase 74 U/L (0-33); Albumin Level 2.8 g/dL (3.5-5.2); Alkaline Phosphatase 155 IU/L (35-105); Anion Gap 12.1 (5-19); Aspartate Amino Transferase 64 U/L (0-32); Blood Urea Nitrogen 7 mg/dL (8-23); Calcium 8.7 mg/dL (8.5-10.5); Carbon Dioxide 28 mmol/L (22-29); Chloride 103 mmol/L (98-107); Globulin 3.2 g/dL (1.3-4.6); Glomerular Filtration Rate 157.8 mL/min (90-130); Glucose 109 mg/dL (65-115); Magnesium 1.8 mg/dL (1.7-2.3); Osmolality Calculated 287 mOsm/kg (285-295); Potassium 4.1 mmol/L (3.5-5.1); Sodium 139 mmol/L (136-145); Total Bilirubin 0.3 mg/dL (0.15-1.2)
[2021-05-17 05:43] LABS: Creatinine Clr Calc Pharmacy 63.8902
--- NOTE | 2021-05-17 05:43 | PC.NURSE ---
0530 reports neck/back pain to be worse this morning. Med given as ordered.
[2021-05-17 05:45] LABS: Procalcitonin 0.15 ng/mL (0-0.5)
[2021-05-17] MEDS: vancomycin 750 MG in sodium chloride 0.9% 250 ML 250 MG IV ×2 (06:35→17:42)
[2021-05-17] MEDS: metoprolol tartrate 50 mg Tablet PO ×2 (07:55→17:05)
[2021-05-17] MEDS: gabapentin 300 mg Capsule PO ×4 (07:55→20:53)
--- NOTE | 2021-05-17 08:15 | PM.PN ---
Subjective Subjective: POD 8 Pt is feeling better today. Neck pain continues but has improved somewhat. Arm discomfort still has numbness into the fingers. Denies any swallowing discomfort. Vitals/I&O/Wt Last Vital Signs Temp 98.7 F 05/17/21 07:32 Pulse 101 H 05/17/21 07:32 Resp 18 05/17/21 08:02 BP 126/71 05/17/21 07:32 Pulse Ox 95 05/17/21 07:32 05/16/21 05/17/21 05/17/21 22:59 06:59 14:59 Intake Total 470 / 570 1100 / 1670 898.333 / 898.333 Output Total 600 / 600 Balance -130 / -30 1100 / 1070 898.333 / 898.333 Weight last 48 hrs Weight 160 lb Physical Exam Narrative: Patient is alert and oriented x3 with a good general appearance normal mood and affect. Mildly tender with palpation about the incisional site. Incision appears to be healing nicely without signs of erythema or drainage. No signs of infection. Good motor strength throughout both upper extremities. Appears to fire in all motor groups with 5/5 strength. Hands are warm good cap refill in all digits. Normal sensation to light touch in all dermatomal areas. Data : 05/17/21 04:48 05/17/21 04:48 Micro: Microbiology 05/16/21 12:25 Blood Culture - Preliminary Blood SPECIMEN COLLECTED 05/16/21 12:23 Blood Culture - Preliminary Blood SPECIMEN COLLECTED A&P Assessment and plan (1) Status post cervical spinal fusion: At this point patient seems to be improving. Place her on Decadron to help decrease the nerve flareup. Discussed with Dr. Maloney at length does not feel that this is an abscess more of hematoma from the posterior decompression and fusion 8 days ago. Her arm pain is likely associated with nerve recovery as they become more hypersensitive following the decompression. Discussed at length with Ms. Toussaint she is more understanding of the symptoms that she is experiencing. Gave her an incentive spirometer encourage pulmonary toilet. Encouraged her to continue to mobilize with physical therapy. Continue to follow her closely. Discussed this at length with Dr. Maloney he agrees with the above-stated plan. Status: Acute Attestations Medical Necessity Statement*: continue to follow Coding Level of Care Code Acute Staff Genetic Counselor for Chg Fwd Diagnoses Status post cervical spinal fusion Z98.1
[2021-05-17] MEDS: dexamethasone 4 mg/mL INJ 8 MG IVP (08:41)
--- NOTE | 2021-05-17 08:54 | PC.CHAP ---
Pastoral Care Encounter/Spiritual Assessment Type of Contact [] Declined insurance sales manager visit [] Patient/Family/Request visit [] Outpatient visit [] Follow-up visit [] Physician referral [] Code/Alert [x] Routine visit [] Staff referral [] Actively dying [] Patient sleeping [] Family support [] [] Out of room [] Palliative care [] [] Receiving care in room [] Pre-surgical visit [] Trauma [] Long length of stay [] ICU visit [] Other: Relational/Emotional Strength [x] Patient feels connected with others/family/visitors/staff [] Distress [] Loneliness/isolation [] Abandonment Spirituality of Patient [x] Person of [place] [] Attends Anglican of their [place] [x] Believes in Prayer [] Reads Bible or Shinto materials [] There are Spiritual issues to be addressed Probation Counselor Interventions [x] Prayer [x] Active listening [x] Non-anxious presence [x] Spiritual/emotional support [] Crisis/trauma care [] Spiritual counseling [] Bereavement support [] Provided bereavement packet [] Provided Bible/devotional materials [] Provided toy/stuffed animal, coloring book to patient or family member [] Provided Communion [] Anointing/[place] [] Salvation [x] Completed spiritual assessment [] Other: Impact on Illness or Injury [] Angry [] Fearful [] Anxious [] Often cries [] Exhaustion [] Unable to work [] Unable to attend rastafari [] Unable to walk/stand [] Unable to read [] Unable to drive [] Unable to eat/drink [] Unable to sleep [] Unable to be with family [] Patient intubated [] Other: Summary Pt states she has had numerous surgeries in her life but has never been in as much pain as she is now. She has begged Paul just to take me due to the pain she is in. She lives alone and is independent so this is extremely difficult for her. She has hope each day, the pain will improve. Time spent with patient 10m
[2021-05-17] MEDS: pantoprazole 40 mg SDV IVP (10:56)
--- NOTE | 2021-05-17 15:04 | P.PN_ITS ---
Subjective Subjective: Patient was seen this morning, she tells me that she continues to have burning sensation in the back of her neck, she is swallowing well, no shortness of breath Vitals/I&O/Wt Last Vital Signs Temp 97.9 F 05/17/21 14:00 Pulse 94 05/17/21 14:00 Resp 17 05/17/21 14:00 BP 135/70 05/17/21 14:00 Pulse Ox 95 05/17/21 11:38 05/17/21 05/17/21 05/17/21 06:59 14:59 22:59 Intake Total 1100 / 1670 1625.000 / 1625.000 Balance 1100 / 1070 1625.000 / 1625.000 Weight last 48 hrs Weight 72.575 kg Physical Exam Const: COMMON NORMALS: no acute distress and patient oriented x3 Resp: COMMON NORMALS: normal respiratory effort, No retractions, No use of accessory muscles and clear to auscultation bilaterally AUSCULTATION: clear to auscultation bilaterally Cardio: COMMON NORMALS: regular rate, regular rhythm, S1 normal heart sound present and S2 normal heart sound present RATE: regular rate RHYTHM: regular rhythm HEART SOUNDS: S1 normal heart sound present and S2 normal heart sound present GI: COMMON NORMALS: Normal to inspection, nondistended, normoactive bowel sounds present, Soft to palpation, non-tender and No hepatosplenomegaly present PALPATION: Yes Soft to palpation and Yes No hepatosplenomegaly present Extremity: COMMON NORMALS: no pedal edema Neuro: COMMON NORMALS: patient oriented x3 Psych: COMMON NORMALS: mental status grossly normal Data : 05/17/21 04:48 05/17/21 04:48 Micro: Microbiology 05/16/21 12:25 Blood Culture - Preliminary Blood NEGATIVE TO DATE 05/16/21 12:23 Blood Culture - Preliminary Blood NEGATIVE TO DATE A&P Assessment and plan (1) Status post cervical spinal fusion: Status: Acute (2) H/O neck surgery: Status: Acute (3) Hyperlipemia, mixed: Status: Acute (4) Hypertension: Status: Acute Qualifiers: Hypertension type: essential hypertension Qualified Code(s): I10 - Essential (primary) hypertension (5) Carotid stenosis: Status: Acute Qualifiers: Laterality: bilateral Qualified Code(s): I65.23 - Occlusion and stenosis of bilateral carotid arteries (6) Ventricular arrhythmia: Status: Acute (7) Abscess, neck: Status: Acute Plan History of spinal fusion -Now with postoperative fluid collection -1. Fluid collection extends from the laminectomy defect posteriorly into the subcutaneous tissues and measures approximately 6.1 by 6.8 by 5.0 cm. Fluid collection may be secondary to postoperative seroma. Infection is not completely excluded. 2. No fracture. 3. C5-C7 laminectomy. 4. Posterior fusion hardware placement C5-T2. 5. Stable anterior cervical hardware. -WBC 14.8, pro-Mark 0.15, Plan -Continue vancomycin, Zosyn -Speech therapy eval, advance diet as tolerated -Receiving Decadron -PT OT -Orthopedic service on consult -DNR, okay with intubation, mechanical ventilation -Hold anticoagulation, SCDs for DVT prophylaxis Hypertension Hyperlipidemia Attestations Medical Necessity Statement*: Patient requires hospitalization for spinal fusion, now with postoperative fluid collection, requiring IV antibiotics, Decadron Coding Level of Care Code Acute General Assembler for g Fwd Diagnoses Status post cervical spinal fusion Z98.1 H/O neck surgery Z98.890 Hyperlipemia, mixed E78.2 Hypertension I10 Hypertension type: essential hypertension Carotid stenosis I65.23 Laterality: bilateral Ventricular arrhythmia I49.9 Abscess, neck L02.11
[2021-05-17] MEDS: atorvastatin 40 mg Tablet 80 MG PO (20:53)
[2021-05-17] MEDS: pantoprazole DR 40 mg Tablet PO (20:53)
[2021-05-18] VITALS (9 sets, daily range): BP systolic 92–144; BP diastolic 48–73; PULSE 76–101; RESP 16–18; TEMP 36.4–36.8; O2SAT 93–96
[2021-05-18] MEDS: cholecalciferol (vitamin D3) 5,000 unit Tablet 5000 UNIT PO (05:13)
[2021-05-18] MEDS: aspirin 81 mg EC Tablet PO (05:13)
[2021-05-18] MEDS: morphine 4 mg/mL SDV 1 mL IVP (05:17)
[2021-05-18 05:24] LABS: Basophils % 0.2 %; Hematocrit 33.8 % (37.0-47.0); Hemoglobin 10.7 g/dL (11.5-15.3); Lymphocytes # 1.6 10^3/uL (0.8-4.8); Lymphocytes % 10.2 %; Mean Corpuscular HGB Conc 31.7 g/dL (30.0-36.0); Mean Corpuscular Hemoglobin 29.7 pg (28.0-34.0); Mean Corpuscular Volume 93.9 fl (81-99); Mean Platelet Volume 10.1 fL (7.4-10.4); Monocytes % 6.4 %; Neutrophils # 12.78 10^3/uL (1.8-7.7); Neutrophils % 81.9 %; Nucleated Red Blood Cells % 0 %; Platelet Count 423 10^3/cmm (130-400); Red Cell Distribution Width 12.9 % (12.1-15.1); White Blood Count 15.6 10^3/uL (4.0-10.0)
[2021-05-18 05:45] LABS: Alanine Aminotransferase 80 U/L (0-33); Albumin Level 3.3 g/dL (3.5-5.2); Alkaline Phosphatase 163 IU/L (35-105); Anion Gap 13.1 (5-19); Aspartate Amino Transferase 58 U/L (0-32); Blood Urea Nitrogen 11 mg/dL (8-23); Calcium 9.4 mg/dL (8.5-10.5); Carbon Dioxide 27 mmol/L (22-29); Chloride 104 mmol/L (98-107); Creatinine Clr Calc Pharmacy 63.8902; Globulin 3.5 g/dL (1.3-4.6); Glomerular Filtration Rate 157.8 mL/min (90-130); Glucose 125 mg/dL (65-115); Magnesium 2.1 mg/dL (1.7-2.3); Osmolality Calculated 291 mOsm/kg (285-295); Phosphorus 1.9 mg/dL (2.5-4.5); Potassium 4.1 mmol/L (3.5-5.1); Sodium 140 mmol/L (136-145); Total Bilirubin 0.2 mg/dL (0.15-1.2); Total Protein 6.8 g/dL (6.6-8.7)
--- NOTE | 2021-05-18 06:50 | PM.PN ---
Subjective Subjective: POD 9 Pt is feeli ng better today.? Neck pain continue s but has improved somewhat.? Arm di scomfort still has numbness into the fingers.? Denies any swallowing dis comfort. Patient is requesting more home health care and is requesting a hospital bed. Vitals/I&O/Wt Last Vital Signs Temp 98.0 F 05/18/21 03:58 Pulse 78 05/18/21 03:58 Resp 18 05/18/21 05:17 BP 96/54 05/18/21 03:58 Pulse Ox 93 05/18/21 03:58 05/17/21 05/17/21 05/18/21 14:59 22:59 06:59 Intake Total 1625.000 / 1625.000 830 / 2455.000 100 / 2555.000 Output Total 110 / 110 Balance 1625.000 / 1625.000 720 / 2345.000 100 / 2445.000 Physical Exam Narrative: Patient is alert a nd oriented x3 wit h a good general a ppearance normal m ood and affect.? M ildly tender with palpation about th e incisional site. ? Incision appears to be healing juan dominic without signs of erythema or ed inage.? No signs o f infection.? Good motor strength th roughout both uppe r extremities.? Ap pears to fire in a ll motor groups wi th 5/5 strength.? Hands are warm goo d cap refill in al l digits.? Normal sensation to light touch in all derm atomal areas. Data : 05/18/21 05:17 05/18/21 05:17 Micro: Microbiology 05/16/21 12:25 Blood Culture - Preliminary Blood NEGATIVE TO DATE 05/16/21 12:23 Blood Culture - Preliminary Blood NEGATIVE TO DATE A&P Assessment and plan (1) Status post cervical spinal fusion: Status: Acute Plan We will consult clinical social worker for home health care and to see if there is any coverage for hospital bed. Encourage physical therapy to continue to mobilize patient. Discussed with the patient that we have to begin taking oral pain medications rather than IV pain medications. We will work to transition her home today or tomorrow. She will follow up in the office in 1 week's time. Attestations Medical Necessity Statement*: DC home later today or tomorrow Coding Level of Care Code Acute Plisse Machine Operator for Harriett Fwrayray Diagnoses Status post cervical spinal fusion Z98.1
[2021-05-18 06:52] LABS: Vancomycin Trough 5.3 ug/mL (10-15)
[2021-05-18] MEDS: vancomycin 1,500 MG/300 ML PIGGYBACK 200 MG IV (07:22)
[2021-05-18] MEDS: gabapentin 300 mg Capsule PO (09:21)
[2021-05-18] MEDS: metoprolol tartrate 50 mg Tablet PO (09:21)
[2021-05-18] MEDS: oxyCODONE-APAP 10-325 mg Tablet 1 TAB PO (09:52)
--- NOTE | 2021-05-18 10:46 | PM.DCS ---
Discharge Providers Date of Admission: 05/16/21 10:06 Date of Discharge: May 18, 2021 Attending Provider at Admission: Fredo Baron MD Attending Provider at Discharge: Abner Rajput MD Primary Care Provider: Del Galarza MD Diagnoses at Discharge Discharge Diagnosis (1) Status post cervical spinal fusion: Status: Acute Reason for Visit Reason for Visit: NECK PAIN Hospital Course Hospital Course HPI : Fredo Baron MD Constance Toussaint is a 71 year old female with a past medical history of carotid artery stenosis, history of CVA, history of hyperlipidemia, hypertension, pulmonary hypertension, history of paroxysmal cardiac arrhythmia, history of cervical spondylosis with myelopathy recent history of cervical neck surgery by Dr. Maloney, who presents [facility] due to increasing severe neck pain, with pain radiating down both arms.? Patient tells me that since her surgery she had worsening neck pain, pain with range of motion, she is on cervical collar, pain then radiating down both arms, her pain medication would barely help.? She came to the emergency room today as she started develop low-grade fevers, with fatigue, malaise, worsening pain.? Currently no headache, no blurry vision, no nausea, no vomiting.? No cough.? No shortness of breath.? No calf pain.? No calf swelling, no sudden onset shortness of breath.? No urinary or bowel incontinence.? No saddle or perineal anesthesia.? Does complain of pain with ambulation, but no weakness of her lower extremities.? In the emergency room she was found to have leukocytosis of over 20,000, with a fluid collection in the laminectomy site. Admitted for the management of: Status post cervical spinal fusion: Posterior cervicals hematoma collections likely postop changes. Orthopedic was on board there concern for sepsis was less , in spite of that she was kept on broad-spectrum antibiotics, she was also kept on dexamethasone, to help with the swelling. Physical therapy was on board, blood cultures were negative, patient remained afebrile, hemodynamically stable.She was discharged in stable to home, she will continue to follow orthopedic as an outpatient. Physical Exam Const: COMMON NORMALS: patient oriented x3 HENMT: COMMON NORMALS: normocephalic and atraumatic HEAD & SCALP: normocephalic and atraumatic Chest: CHEST: Yes Symmetrical chest wall rise Resp: COMMON NORMALS: normal respiratory effort and clear to auscultation bilaterally EFFORT & INSPECTION: Yes symmetric chest movement AUSCULTATION: clear to auscultation bilaterally Cardio: COMMON NORMALS: regular rate, regular rhythm, S1 normal heart sound present, S2 normal heart sound present, No gallops present (Cardio), No murmurs present (Cardio), No rub (Cardio) and Peripheral pulses 2+ throughout RATE: regular rate RHYTHM: regular rhythm HEART SOUNDS: S1 normal heart sound present and S2 normal heart sound present PERIPHERAL PULSES: Peripheral pulses 2+ throughout GI: COMMON NORMALS: Normal to inspection, nondistended, normoactive bowel sounds present, Soft to palpation, non-tender, No hepatosplenomegaly present and no masses AUSCULTATION: Yes normoactive bowel sounds PALPATION: Yes Soft to palpation and Yes No hepatosplenomegaly present RECTAL EXAM: deferred Extremity: COMMON NORMALS: no clubbing, cyanosis or edema and no pedal edema Neuro: COMMON NORMALS: patient oriented x3 Discharge Data Studies Completed and Pending Completed Studies During Hospitalization Category Date Time Status CT abdomen pelvis w con* [id number] Urgent Cat Scan 05/16/21 04:[address] cervical spine w con [id number] Urgent Cat Scan 05/16/21 04:36 Completed XR chest 1V portable [id number] Urgent Exams 05/16/21 03:47 Completed Pending at discharge Category Date Time Status Blood Culture Routine Lab 05/16/21 12:25 Results Complete Blood Count w/Auto AM LABS Lab 05/19/21 04:00 Ordered Complete Blood Count w/Auto AM LABS Lab 05/20/21 04:00 Ordered Comprehensive Metabolic Panel AM LABS Lab 05/19/21 04:00 Ordered Magnesium AM LABS Lab 05/19/21 04:00 Ordered Phosphorus AM LABS Lab 05/19/21 04:00 Ordered Vancomycin Trough Timed Lab 05/19/21 18:00 Ordered Radiology Impressions Chest X-Ray 05/16/21 03:47 IMPRESSION: No acute disease. Abdomen/Pelvis CT 05/16/21 04:36 IMPRESSION: 1. Mild constipation. 2. There are few loops of mildly prominent small bowel , nonspecific but may be seen with gastroenteritis. COMMENTS: Consistent with the [employer]'s Incidental Findings Committee white paper (J Am Farida Radiol 2018): Any incidental renal lesion less than 1 cm or classified as too small to characterize, or any incidental cystic renal lesion characterized as simple-appearing, is likely benign. No follow-up imaging is recommended for these lesions per consensus recommendations based on imaging criteria. Cervical Spine CT 05/16/21 04:36 IMPRESSION: 1. Fluid collection extends from the laminectomy defect posteriorly into the subcutaneous tissues and measures approximately 6.1 by 6.8 by 5.0 cm. Fluid collection may be secondary to postoperative seroma. Infection is not completely excluded. 2. No fracture. 3. C5-C7 laminectomy. 4. Posterior fusion hardware placement C5-T2. 5. Stable anterior cervical hardware. Laboratory Results WBC 15.6 10^3/uL (4.0-10.0) H 05/18/21 05:17 RBC 3.60 10^6/uL (4.1-5.3) L 05/18/21 05:17 Hgb 10.7 g/dL (11.5-15.3) L 05/18/21 05:17 Hct 33.8 % (37.0-47.0) L 05/18/21 05:17 MCV 93.9 fl (81-99) 05/18/21 05:17 MCH 29.7 pg (28.0-34.0) 05/18/21 05:17 MCHC 31.7 g/dL (30.0-36.0) 05/18/21 05:17 RDW 12.9 % (12.1-15.1) 05/18/21 05:17 Plt Count 423 10^3/cmm (130-400) H 05/18/21 05:17 MPV 10.1 fL (7.4-10.4) 05/18/21 05:17 Neut % (Auto) 81.9 % 05/18/21 05:17 Lymph % (Auto) 10.2 % 05/18/21 05:17 [place] % (Auto) 6.4 % 05/18/21 05:17 Eos % (Auto) 0.0 % 05/18/21 05:17 Baso % (Auto) 0.2 % 05/18/21 05:17 Neut # (Auto) 12.78 10^3/uL (1.8-7.7) H 05/18/21 05:17 Lymph # (Auto) 1.6 10^3/uL (0.8-4.8) 05/18/21 05:17 [place] # (Auto) 1.0 10^3/uL (0.2-0.9) H 05/18/21 05:17 Eos # (Auto) 0.0 10^3/uL (0.0-0.8) 05/18/21 05:17 Baso # (Auto) 0.0 10^3/uL (0.0-0.1) 05/18/21 05:17 Nucleated RBC % (auto) 0 % 05/18/21 05:17 Nucleated RBCs # 0.0 /100WBC 05/18/21 05:17 Sodium 140 mmol/L (136-145) 05/18/21 05:17 Potassium 4.1 mmol/L (3.5-5.1) 05/18/21 05:17 Chloride 104 mmol/L (98-107) 05/18/21 05:17 Carbon Dioxide 27 mmol/L (22-29) 05/18/21 05:17 Anion Gap 13.1 (5-19) 05/18/21 05:17 BUN 11 mg/dL (8-23) 05/18/21 05:17 Creatinine 0.4 mg/dL (0.5-0.9) L 05/18/21 05:17 GFR Calculation 157.8 mL/min (90-130) H 05/18/21 05:17 Glucose 125 mg/dL (65-115) H 05/18/21 05:17 Calculated Osmolality 291 mOsm/kg (285-295) 05/18/21 05:17 Lactate 0.4 mmol/L (0.5-2.2) L 05/16/21 04:15 Calcium 9.4 mg/dL (8.5-10.5) 05/18/21 05:17 Phosphorus 1.9 mg/dL (2.5-4.5) L 05/18/21 05:17 Magnesium 2.1 mg/dL (1.7-2.3) 05/18/21 05:17 Total Bilirubin 0.2 mg/dL (0.15-1.2) 05/18/21 05:17 AST 58 U/L (0-32) H 05/18/21 05:17 ALT 80 U/L (0-33) H 05/18/21 05:17 Alkaline Phosphatase 163 IU/L (35-105) H 05/18/21 05:17 C-Reactive Protein 125.5 mg/L (0.0-4.9) H 05/16/21 10:48 Total Protein 6.8 g/dL (6.6-8.7) 05/18/21 05:17 Albumin 3.3 g/dL (3.5-5.2) L 05/18/21 05:17 Globulin 3.5 g/dL (1.3-4.6) 05/18/21 05:17 Procalcitonin 0.15 ng/mL (0-0.5) 05/17/21 04:48 Urine Color Yellow (Yellow) 05/16/21 04:45 Urine Appearance Sl cloudy (CLEAR) A 05/16/21 04:45 Urine pH 8 (5-7) H 05/16/21 04:45 Ur Specific [place] 1.015 (1.005-1.030) 05/16/21 04:45 Urine Protein Neg (Negative) 05/16/21 04:45 Urine Glucose (UA) Norm (Normal) 05/16/21 04:45 Urine Ketones Negative (Negative) 05/16/21 04:45 Urine Blood Neg (Negative) 05/16/21 04:45 Urine Nitrate Negative (Negative) 05/16/21 04:45 Urine Bilirubin Neg (Negative) 05/16/21 04:45 Prot Sulfosalicylic Acd Negative (Negative) 05/16/21 04:45 Urine Urobilinogen Norm mg/dL (Negative) 05/16/21 04:45 Ur Leukocyte Esterase Negative (Negative) 05/16/21 04:45 Urine RBC 0-4 /hpf (0-2) H 05/16/21 04:45 Urine WBC 0-4 /hpf (0-5) H 05/16/21 04:45 Ur Squamous Epith Cells 10-15 /hpf (0-5) H 05/16/21 04:45 Amorphous Sediment 2+ /hpf 05/16/21 04:45 Urine Bacteria 1+ /hpf (NONE) H 05/16/21 04:45 Vancomycin Trough 5.3 ug/mL (10-15) L 05/18/21 05:17 Coronavirus 229E (PCR) Not detected (NOT DETECT) 05/16/21 06:45 SARS-CoV-2 (PCR) Not detected (NOT DETECT) 05/16/21 06:45 Vitals Last Vital Signs Temp 97.5 F L 05/18/21 08:00 Pulse 101 H 05/18/21 08:00 Resp 16 05/18/21 09:56 BP 136/70 05/18/21 08:00 Pulse Ox 96 05/18/21 09:52 Discharge Plan Discharge Patient Disposition: Home Condition: Stable Prescriptions: Continued (DME) Night splint See Rx Instructions .Route .MEDSUPPLY Qty: 1 0RF Rx Instructions: As directed oxycodone 10 mg tablet 10 mg PO Q4H PRN (Reason: pain) 7 Days Qty: 40 0RF multivitamin [Multiple Vitamins] Tablet 1 tab PO DAILY 0RF amlodipine 10 mg tablet 10 mg PO QAM 0RF metoprolol tartrate 50 mg tablet 50 mg PO BID 0RF vitamin B complex Tablet 1 tab PO QAM 0RF lisinopril 40 mg tablet 40 mg PO QAM 0RF rosuvastatin 20 mg tablet 20 mg PO BEDTIME 0RF melatonin 10 mg Tablet 10 mg PO BEDTIME 0RF gabapentin 300 mg capsule 300 mg PO QID 0RF ondansetron HCl 8 mg tablet 8 mg PO TID PRN (Reason: Nausea And Vomiting) 0RF aspirin 81 mg Tablet,Delayed Release (Dr/Ec) 81 mg PO QAM 0RF diphenhydramine HCl [Benadryl] 25 mg Capsule 25 mg PO TID PRN (Reason: Allergy Symptoms) 0RF promethazine 25 mg tablet 25 - 50 mg PO Q8H PRN (Reason: Nausea And Vomiting) 0RF hydrocodone-acetaminophen 10-325 mg tablet 1 tab PO QID PRN (Reason: Pain) 0RF esomeprazole magnesium 40 mg capsule,delayed release(DR/EC) 40 mg PO BEDTIME 0RF Belsomra 20 mg tablet 20 mg PO BEDTIME 0RF cholecalciferol (vitamin D3) [Vitamin D3] 125 mcg (5,000 unit) Tablet 125 mcg PO QAM 0RF Discharge Orders: Discharge Order (Routine); Ordered 05/18/21 Ordered By: Abner Rajput Other Ambulatory Orders: DME: Hospital Bed (Order) Location: None Selected Ordered By: Toro Maloney Referrals: [facility] [place] [Outside] [facility] [Outside] Toro Maloney DO [Physician] - 05/24/21 11:00 am Del Galarza MD [Primary Care Provider] - 05/25/21 10:15 am Discharge Diet: Regular Discharge Activity: Increase activity as tolerated Patient Instructions: Abscess (ED), Anterior Cervical Discectomy (DC), Opioid Safety Discharge Attestations Time Spent in Discharge Care*: greater than 30 min Specific Discharge Activities: educating patient, educating and/or supporting family/caregiver, discussing with pcp/other providers, discussing with bilingual case manager/social workers/dc planners, documenting/other paperwork and evaluating patient/reviewing data Quality Metrics Clinical Quality Measures [ No reported AMI, CVA or VTE this stay] Coding Level of Care Code Acute Chg FW DC note Diagnoses Status post cervical spinal fusion Z98.1
--- NOTE | 2021-05-18 12:12 | PC.CHAP ---
Pastoral Care Encounter/Spiritual Assessment Type of Contact [] Declined glass lined tank repairer visit [] Patient/Family/Request visit [] Outpatient visit [] Follow-up visit [] Physician referral [] Code/Alert [x] Routine visit [] Staff referral [] Actively dying [x] Patient sleeping [] Family support [] [] Out of room [] Palliative care [] [] Receiving care in room [] Pre-surgical visit [] Trauma [] Long length of stay [] ICU visit [] Other: Relational/Emotional Strength [] Patient feels connected with others/family/visitors/staff [] Distress [] Loneliness/isolation [] Abandonment Spirituality of Patient [] Person of [place] [] Attends Christianity of their [place] [] Believes in Prayer [] Reads Bible or Scientology materials [] There are Spiritual issues to be addressed Fiberglasser Interventions [] Prayer [] Active listening [] Non-anxious presence [] Spiritual/emotional support [] Crisis/trauma care [] Spiritual counseling [] Bereavement support [] Provided bereavement packet [] Provided Bible/devotional materials [] Provided toy/stuffed animal, coloring book to patient or family member [] Provided Communion [] Anointing/[place] [] Salvation [] Completed spiritual assessment [] Other: Impact on Illness or Injury [] Angry [] Fearful [] Anxious [] Often cries [] Exhaustion [] Unable to work [] Unable to attend yarsanism [] Unable to walk/stand [] Unable to read [] Unable to drive [] Unable to eat/drink [] Unable to sleep [] Unable to be with family [] Patient intubated [] Other: Summary Time spent with patient
--- NOTE | 2021-05-18 12:16 | PC.NURSE ---
Discussed discharge, medications and follow up appointments with patient. Verbalized understanding.
== END 2021-05-18 14:00 | disposition home health service (06) | DRG 921 ==
LOC: ER 10:17 → MEDSURG 11:32
PROVIDERS: Emergency Medicine; Admitting Provider Family Medicine; Emergency Provider Family Medicine; PCP Family Medicine; Visit Provider Internal Medicine
DX: M96.840 Postprocedural hematoma of a musculoskeletal structure following a musculoskeletal system procedure (principal); Z98.1 Arthrodesis status; E78.2 Mixed hyperlipidemia; I10 Essential (primary) hypertension; I65.23 Occlusion and stenosis of bilateral carotid arteries; I49.9 Cardiac arrhythmia, unspecified; Z87.891 Personal history of nicotine dependence; Z86.73 Personal history of transient ischemic attack (TIA), and cerebral infarction without residual deficits; Z79.82 Long term (current) use of aspirin
CPT/HCPCS: 36415; 71045; 72126; 74177; 80053; 80202; 81001; 83605; 83735; 84100; 84145; 85025; 86140; 87040; 87635; 92610; 96365; 96367; 96375; 96376; 97116; 97161; 97166; 97530; 97535; 99285; C9113; J0743; J1100; J1170; J1956; J2270; J2405; J3370; J7030; J7040; J7050; Q9967

== ENCOUNTER 2021-06-15 06:49 | Outpatient (CLI) | payer MEDICARE, MEDICAID, SELFPAY | END 2021-06-15 06:50 | disposition home or self-care (01) | LOC: LAB 06:50 | PROVIDERS: PCP Family Medicine; Visit Provider Family Medicine | DX: K92.1 Melena (principal) | CPT/HCPCS: 82274; 87493; 87506 ==

== ENCOUNTER → 2021-06-23 09:29 | Outpatient (BNVA) | payer MEDICARE, MEDICAID, SELFPAY | PROVIDERS: PCP Family Medicine; Visit Provider Orthopaedic Surgery | DX: Z47.89 Encounter for other orthopedic aftercare (principal); Z98.890 Other specified postprocedural states | CPT/HCPCS: 72040; 99024 ==

== ENCOUNTER 2021-06-24 10:30 | Emergency (ER) | payer MEDICARE, MEDICAID, SELFPAY ==
[2021-06-24 10:43] VITALS: BP 129/57; PULSE 75; RESP 16; O2SAT 96
--- NOTE | 2021-06-24 11:00 | W.ED.NECK ---
HPI - Neck Pain/Injury General: Chief Complaint: Neck Pain/Injury Stated Complaint: PAIN IN NECK/ NUMBNESS ON L SIDE Time Seen by Provider: 06/24/21 10:33 Source: patient Mode of arrival: ambulatory Limitations: no limitations History of Present Illness: 71-year-old female who has a history of cervical disc disease. In May 2021 she had surgery on her neck. She was found to have a seroma postoperatively was hospitalized from May 16 through the . She had a follow-up visit there is scheduled some outpatient imaging patient is still having left arm pain shooting pains down into the hand at times. She also reports that extending into her face at times. On arrival here she has no focal neurologic deficits no history of trauma recently. MD complaint: neck pain Onset (ago): week(s) Place: home Severity: moderate Quality: dull, aching and throbbing Duration: intermittent Relieving factors: none Exacerbating factors: none Associated symptoms: Denies dysphagia, difficulty walking, dizziness, fevers/chills, headache(s), nausea, swollen glands, tingling, weakness or other Treatments prior to arrival: none Review of Systems Const: Denies: fever(s), chills, body aches, change in appetite, fatigue or malaise ENMT: Denies: throat pain, ear or mastoid pain, nasal discharge or nasal congestion Card: Denies: chest pain, palpitations, edema, dyspnea on exertion or orthopnea Resp: Denies: dyspnea, productive cough or non-productive cough GI: Denies: abdominal pain, nausea or dysphagia : Denies: flank pain, difficulty voiding, dysuria, urinary frequency or urinary urgency Musc: Reports: neck pain Skin/Breast: Denies: rash or pruritus Neuro: Denies: headache(s), difficulty walking or dizziness PFSH ED PFSH: Medical History Abscess, neck Carotid stenosis RM (dyspnea on exertion) History of CVA (cerebrovascular accident) Hx of tuberculosis Hyperlipemia, mixed Hypertension Paroxysmal cardiac arrhythmia Pulmonary hypertension Ventricular arrhythmia Surgical History H/O neck surgery H/O: hysterectomy History of arthroplasty of right knee History of back surgery History of tonsillectomy and adenoidectomy Hx of appendectomy Hx of cholecystectomy Hx of neck surgery Hx of oophorectomy Hx of oophorectomy Family History Mother CAD (coronary artery disease) Father CAD (coronary artery disease) Brother CAD (coronary artery disease) Stroke Daughter Cancer Sister Dementia Denies family history of Diabetes Clotting disorder Chronic kidney disease (CKD) Suicide Anesthesia complication Bleeding disorder Lung disease Social History Smoking and tobacco status: former smoker Quit status (tobacco): has quit using tobacco Second hand smoke exposure: No Smoking risk assessment/counseling performed?: No Alcohol intake: never Physical Exam Const: GENERAL APPEARANCE: cooperative and comfortable ORIENTATION/CONSCIOUSNESS: Yes awake, Yes oriented to person, Yes oriented to place and Yes oriented to time HENMT: COMMON NORMALS: normocephalic, atraumatic and hearing grossly normal bilaterally HEAD & SCALP: normocephalic and atraumatic Neck/C-Spine: COMMON NORMALS: no JVD Resp: COMMON NORMALS: normal respiratory effort, No retractions, No use of accessory muscles and clear to auscultation bilaterally AUSCULTATION: clear to auscultation bilaterally Cardio: COMMON NORMALS: no JVD, regular rate, regular rhythm and No murmurs present (Cardio) RATE: regular rate RHYTHM: regular rhythm GI: COMMON NORMALS: Soft to palpation and No hepatosplenomegaly present AUSCULTATION: Yes normoactive bowel sounds PALPATION: Yes Soft to palpation, No Tenderness to palpation present (GI), No Guarding due to palpation present (GI) and Yes No hepatosplenomegaly present Extremity: COMMON NORMALS: normal to inspection, capillary refill normal, no clubbing, cyanosis or edema, no calf tenderness and no pedal edema Neuro: SENSORIUM/ORIENTATION: Yes oriented to person, Yes oriented to place and Yes oriented to time Skin: COMMON NORMALS: no rashes or lesions noted GENERAL SKIN EXAM: no rashes or lesions noted Course Vital Signs: Vital signs: Vital Signs Pulse Rate 70 06/24/21 11:42 Respiratory Rate 16 06/24/21 11:42 Blood Pressure 129/70 06/24/21 11:42 Pulse Oximetry 96 06/24/21 10:43 MDM - Neck Pain/Injury Medical Decision Making Patient has radicular-like left arm symptoms but no other sign of CVA. We will go ahead and discharge her home treat symptoms for now follow-up with primary care for further evaluation and possible advanced imaging. Medical Records I reviewed the patient's medical records. Lab Data I reviewed the patient's lab results. Discharge Plan Discharge Patient Disposition: Home Clinical Impression: Status post cervical spinal fusion, Neck pain, Cervical radiculopathy Condition: Stable Prescriptions: New prednisone 20 mg tablet 20 mg PO TID Qty: 15 0RF Rx Instructions: 1 p.o. 3 times daily x3 days, 1 p.o. twice daily x2 days, 1 p.o. daily x2 days No Action (DME) Night splint See Rx Instructions .Route .MEDSUPPLY Qty: 1 0RF Rx Instructions: As directed prednisone 20 mg tablet 20 mg PO DAILY Qty: 15 0RF Rx Instructions: Take 60mg daily for days 1,2,3 Take 40mg daily for days 4, 5 Take 20mg daily for days 6, 7 oxycodone 10 mg tablet 10 mg PO Q4H PRN (Reason: pain) 7 Days Qty: 40 0RF hydrocodone-acetaminophen 10-325 mg tablet 1 tab PO QID PRN (Reason: Pain) 7 Days Qty: 40 0RF (DME) Bone Growth Stimulator [id number] See Rx Instructions .Route .MEDSUPPLY Qty: 1 0RF Rx Instructions: As directed oxycodone 10 mg tablet 10 mg PO Q4H PRN (Reason: pain) 7 Days Qty: 40 0RF cyclobenzaprine 5 mg tablet 5 mg PO TID PRN (Reason: muscle spasm) Qty: 90 0RF multivitamin [Multiple Vitamins] Tablet 1 tab PO DAILY 0RF amlodipine 10 mg tablet 10 mg PO QAM 0RF metoprolol tartrate 50 mg tablet 50 mg PO BID 0RF vitamin B complex Tablet 1 tab PO QAM 0RF lisinopril 40 mg tablet 40 mg PO QAM 0RF rosuvastatin 20 mg tablet 20 mg PO BEDTIME 0RF melatonin 10 mg Tablet 10 mg PO BEDTIME 0RF gabapentin 300 mg capsule 300 mg PO QID 0RF ondansetron HCl 8 mg tablet 8 mg PO TID PRN (Reason: Nausea And Vomiting) 0RF aspirin 81 mg Tablet,Delayed Release (Dr/Ec) 81 mg PO QAM 0RF diphenhydramine HCl [Benadryl] 25 mg Capsule 25 mg PO TID PRN (Reason: Allergy Symptoms) 0RF promethazine 25 mg tablet 25 - 50 mg PO Q8H PRN (Reason: Nausea And Vomiting) 0RF esomeprazole magnesium 40 mg capsule,delayed release(DR/EC) 40 mg PO BEDTIME 0RF Belsomra 20 mg tablet 20 mg PO BEDTIME 0RF cholecalciferol (vitamin D3) [Vitamin D3] 125 mcg (5,000 unit) Tablet 125 mcg PO QAM 0RF Discharge Orders: Discharge ED (Routine); Ordered 06/24/21 Ordered By: Ludwig Beal Referrals: Del Galarza MD [Primary Care Provider] - Discharge Diet: Usual diet Discharge Activity: Limit activity as instructed Patient Instructions: Opioid Safety Activity Restrictions/Additional Instructions: Follow-up with Dr. Maloney as scheduled. Coding Level of Care Code ED Social Media Marketer for Chg Fwd Exam Comprehensive NIH stroke score NIHSS Level Of Consciousness - 1a: 0 Level Of Consciousness Questions - 1b: Both Correct Level Of Consciousness Commands - 1c: Both Correct Best Gaze - 2: Normal Visual Foley - 3: No Visual Loss Facial Palsy - 4: Normal Motor Arm Right - 5: No Drift Motor Arm Left - 5: No Drift Motor Leg Right - 6: No Drift Motor Leg Left - 6: No Drift Limb Ataxia - 7: Absent Sensory - 8: Mild To Moderate Loss Best Language - 9: No Aphasia Dysarthia - 10: Normal Extinction And Inattention - 11: 0 Score Total Score: 1
[2021-06-24 11:42] VITALS: BP 129/70; PULSE 70; RESP 16
[2021-06-24] MEDS: ketorolac 30 mg/mL INJ IM (11:43)
[2021-06-24] MEDS: morphine 4 mg/mL SDV 1 mL IVP (11:45)
== END 2021-06-24 12:17 | disposition home or self-care (01) ==
PROVIDERS: Emergency Provider Family Medicine; PCP Family Medicine
DX: M54.12 Radiculopathy, cervical region (principal); Z86.73 Personal history of transient ischemic attack (TIA), and cerebral infarction without residual deficits; Z87.891 Personal history of nicotine dependence; Z98.1 Arthrodesis status; Z79.52 Long term (current) use of systemic steroids; Z79.891 Long term (current) use of opiate analgesic; Z79.82 Long term (current) use of aspirin
CPT/HCPCS: 96372; 96374; 99283; J1885; J2270

== ENCOUNTER 2021-07-07 08:23 | Outpatient (CLI) | payer MEDICARE, MEDICAID, SELFPAY ==
--- NOTE | 2021-07-07 08:30 | CT_ITS ---
WS: [id number] CT CERVICAL SPINE TECHNIQUE: Noncontrast CT of the cervical spine with coronal and sagittal reformatted images. CLINICAL INFORMATION: pain COMPARISON: CT May 16, 2021 DLP: 428.[address] scans at [facility] use at least one of these dose optimization techniques: automated e xposure control; mA and/or kV adjustment per patient size (includes targeted exams where dose is matc hed to clinical indication); or iterative reconstruction. FINDINGS: Straightening of the normal cervical lordosis. ACDF C3-C5 with fixation hardware. Anterior bony fusio n C5-C7 with interbody fusion grafts. Posterior fusion C5-T2 with interconnecting rods. Hardware appe ars intact. Postoperative wide laminectomy defects C5-C7. Seroma within the laminectomy defect appear s improved compared to previous. Residual edema and soft tissue thickening in the laminectomy defect. Spinal canal appears patent. No high-grade central canal stenosis. C2-C3: Normal. C3-C4: ACDF. Mild RIGHT greater than LEFT bony foraminal narrowing. Mild facet arthropathy. Spinal ca nal is patent. C4-C5: Postoperative changes ACDF. Mild RIGHT and no significant LEFT foraminal narrowing. Spinal can al is patent. C5-C6: Postoperative ACDF. Laminectomy defects. Mild bilateral bony foraminal narrowing LEFT greater than RIGHT. Spinal canal appears patent. C6-C7: Endplate osteophytic ridging. Mild bilateral bony foraminal narrowing. Spinal canal appears pa tent. C7-T1: Endplate osteophytic ridging. Mild RIGHT and no significant LEFT foraminal narrowing. Spinal c anal appears patent. Visualized posterior nasopharynx: Normal. Prevertebral soft tissues: Normal. CT/CT cervical spin wo con* [id number] IMPRESSION: 1. Straightening of the normal cervical lordosis. 2. Prior postoperative changes ACDF C3-C5. Interbody bony fusion C5-C7. Dorsal laminectomy defects C5-C7. Dorsal fusion C5-T2. 3. Laminectomy defects C5-C7 with improved dorsal soft tissue seroma. Small am ount of residual edema with a small amount of fluid. Spinal canal is somewhat d ifficult to visualize but appears patent. 4. Hardware appears intact. No evidence of hardware loosening.
== END 2021-07-07 08:24 | disposition home or self-care (01) ==
LOC: RAD 08:25
PROVIDERS: PCP Family Medicine; Visit Provider Orthopaedic Surgery
DX: Z48.89 Encounter for other specified surgical aftercare (principal); Z98.1 Arthrodesis status; M96.842 Postprocedural seroma of a musculoskeletal structure following a musculoskeletal system procedure; Y83.8 Other surgical procedures as the cause of abnormal reaction of the patient, or of later complication, without mention of misadventure at the time of the procedure
CPT/HCPCS: 72125

== ENCOUNTER → 2021-07-26 10:53 | Outpatient (BNVA) | payer MEDICARE, MEDICAID, SELFPAY | PROVIDERS: PCP Family Medicine; Visit Provider Orthopaedic Surgery | DX: Z47.89 Encounter for other orthopedic aftercare (principal); Z98.890 Other specified postprocedural states; Z98.1 Arthrodesis status | CPT/HCPCS: 99024 ==

== ENCOUNTER → 2021-08-11 09:53 | Outpatient (BNVA) | payer MEDICARE, MEDICAID, SELFPAY | PROVIDERS: PCP Family Medicine; Visit Provider Internal Medicine Cardiovascular Disease | DX: I49.9 Cardiac arrhythmia, unspecified (principal); I10 Essential (primary) hypertension; I27.20 Pulmonary hypertension, unspecified; E78.2 Mixed hyperlipidemia; R09.89 Other specified symptoms and signs involving the circulatory and respiratory systems; Z87.891 Personal history of nicotine dependence | CPT/HCPCS: 99214 ==

== ENCOUNTER 2021-08-25 08:18 | Outpatient (RCR) | payer MEDICARE, MEDICAID, SELFPAY | END 2021-09-01 23:59 | disposition home or self-care (01) | LOC: SPT 08:18 | PROVIDERS: PCP Family Medicine; Referring Provider Orthopaedic Surgery; Visit Provider Orthopaedic Surgery | DX: M54.12 Radiculopathy, cervical region (principal); R53.1 Weakness | CPT/HCPCS: 97161 ==

== ENCOUNTER 2021-09-02 06:00 | Outpatient (RCR) | payer MEDICARE, MEDICAID, SELFPAY | END 2021-10-02 23:59 | disposition home or self-care (01) | LOC: SPT 06:00 | PROVIDERS: PCP Family Medicine; Referring Provider Orthopaedic Surgery; Visit Provider Orthopaedic Surgery | DX: M54.12 Radiculopathy, cervical region (principal); R53.1 Weakness | CPT/HCPCS: 97113 ==

== ENCOUNTER → 2021-09-22 10:18 | Outpatient (BNVA) | payer MEDICARE, MEDICAID, SELFPAY | PROVIDERS: PCP Family Medicine; Visit Provider Orthopaedic Surgery | DX: Z47.89 Encounter for other orthopedic aftercare (principal); Z98.890 Other specified postprocedural states; Z98.1 Arthrodesis status | CPT/HCPCS: 72040; 99213 ==

== ENCOUNTER → 2022-01-03 13:41 | Outpatient (BNVA) | payer MEDICARE, MEDICAID, SELFPAY | PROVIDERS: PCP Family Medicine; Visit Provider Internal Medicine Cardiovascular Disease | DX: I27.20 Pulmonary hypertension, unspecified (principal); I49.8 Other specified cardiac arrhythmias; I10 Essential (primary) hypertension; E78.2 Mixed hyperlipidemia; R09.89 Other specified symptoms and signs involving the circulatory and respiratory systems; Z87.891 Personal history of nicotine dependence | CPT/HCPCS: 99214 ==

== ENCOUNTER 2022-01-23 11:43 | Emergency (ER) | payer MEDICARE, MEDICAID, SELFPAY ==
[2022-01-23 11:57] VITALS: BP 144/79; PULSE 71; RESP 18; TEMP 36.3; O2SAT 94; BMI 36.0
--- NOTE | 2022-01-23 12:03 | XR_ITS ---
WS: [id number] PORTABLE CHEST HISTORY: SOB COMPARISON: 01/16/2022 Large-bore dialysis catheter RIGHT subclavian. Lungs are clear and well expanded. No pleural effusion or pneumothorax. Cardiac size: Normal. Mediastinum/Aorta: Mild atherosclerosis aorta. No osseous abnormality seen.
--- NOTE | 2022-01-23 12:03 | ECG_ITS ---
[facility] Test Date: 2022-01-23 Pat Name: Constance Toussaint Department: Room: Gender: Female Program Development Manager: : 1950 Requested By: Ludwig Mehta Order Number: [id number] Mandy MD: Francisco Zuleta M.D. Measurements Intervals [place] Rate: 73 P: -12 WA: 164 QRS: 17 QRSD: 73 T: 44 QT: 363 QTc: 403 Interpretive Statements SINUS RHYTHM LOW QRS VOLTAGE IN PRECORDIAL LEADS [QRS DEFLECTION < 1.0 mV IN CHEST LEADS] Compared to ECG 05/06/2021 13:38:09 No significant changes Electronically Signed On 01-23-2022 17:07:23 CONTROL SYSTEMS SPECIALIST by Francisco Zuleta M.D. [id number]
--- NOTE | 2022-01-23 13:01 | XRR_ITS ---
PROCEDURE INFORMATION: Exam: XR Chest Exam date and time: 01/23/2022 12:59 PM Age: 71 years old Clinical indication: Prior surgery; Surgery type: C spine; Patient HX: Shortness of breath, getting worse; Additional info: SOB TECHNIQUE: Imaging protocol: Radiologic exam of the chest. Views: 1 view. COMPARISON: CR XR chest 1V portable [id number] 05/16/2021 3:06 AM FINDINGS: Lungs: Unremarkable. No consolidation. Pleural spaces: Unremarkable. No pleural effusion. No pneumothorax. Heart/Mediastinum: Unremarkable. No cardiomegaly. Bones/joints: Metallic surgical hardware is seen in the cervical spine XR/XR chest 1V portable [id number] IMPRESSION: 1. No acute findings. 2. Metallic hardware cervical spine
[2022-01-23 13:02] VITALS: PULSE 70; O2SAT 96
--- NOTE | 2022-01-23 13:11 | ED_ITS ---
HPI - SOB/Dyspnea General: Chief Complaint: Shortness of Breath/Dyspnea Stated Complaint: SOB Time Seen by Provider: 01/23/22 13:04 Source: patient Mode of arrival: ambulatory History of Present Illness: HPI Narrative: 71-year-old female presents emergency room with complaint of not being able to breathe. States for least a month she has been short of breath and seems to have gotten worse she is noted some swelling in her feet as well she denies any fever sweats chills or productive cough no chest pain. She is on chlorthalidone. She is also on carvedilol 25 mg twice daily, lisinopril 40 mg daily she tells me she was also recently started on some diuretics she is on chlorthalidone and on single Lasix Bumex Intrarosa might on her list. Echo done 2 years ago showed normal LV function with 55 to 60% ejection fraction normal diastolic function aortic and mitral valves were normal as well. No known history of COPD or cardiac congestive heart failure MD elicited complaint: shortness of breath and cough Onset (ago): minute(s) Timing: constant Severity: mild Exacerbating factors: exertion Associated symptoms: Deny abdominal pain, chest pain, fever(s), nausea, orthopnea or vomiting Review of Systems Const: Denies: fever(s), chills, body aches, change in appetite, fatigue or malaise ENMT: Denies: throat pain, ear or mastoid pain, nasal discharge or nasal congestion Card: Denies: chest pain, edema, dyspnea on exertion or orthopnea Resp: Denies: dyspnea, productive cough or non-productive cough GI: Denies: abdominal pain, nausea, vomiting, hematemesis, coffee ground emesis, diarrhea, constipation, bloating, hematochezia or melena : Denies: flank pain, difficulty voiding, dysuria, urinary frequency or urinary urgency Skin/Breast: Denies: rash or pruritus PFSH ED PFSH: Medical History Abscess, neck Carotid stenosis RM (dyspnea on exertion) History of CVA (cerebrovascular accident) Hx of tuberculosis Hyperlipemia, mixed Hypertension Paroxysmal cardiac arrhythmia Pulmonary hypertension Ventricular arrhythmia Surgical History H/O neck surgery H/O: hysterectomy History of arthroplasty of right knee History of back surgery History of tonsillectomy and adenoidectomy Hx of appendectomy Hx of cholecystectomy Hx of neck surgery Hx of oophorectomy Hx of oophorectomy Family History Mother CAD (coronary artery disease) Father CAD (coronary artery disease) Brother CAD (coronary artery disease) Stroke Daughter Cancer Sister Dementia Denies family history of Diabetes Clotting disorder Chronic kidney disease (CKD) Suicide Anesthesia complication Bleeding disorder Lung disease Social History Smoking and tobacco status: former smoker Quit status (tobacco): has quit using tobacco Second hand smoke exposure: No Smoking risk assessment/counseling performed?: No Alcohol intake: never Physical Exam Const: COMMON NORMALS: no acute distress GENERAL APPEARANCE: cooperative and comfortable ORIENTATION/CONSCIOUSNESS: Yes awake, Yes oriented to person, Yes oriented to place and Yes oriented to time HENMT: COMMON NORMALS: normocephalic, atraumatic and hearing grossly normal bilaterally HEAD & SCALP: normocephalic and atraumatic Resp: COMMON NORMALS: normal respiratory effort, No retractions, No use of accessory muscles and clear to auscultation bilaterally AUSCULTATION: clear to auscultation bilaterally Cardio: COMMON NORMALS: regular rate, regular rhythm and No murmurs present (Cardio) RATE: regular rate RHYTHM: regular rhythm GI: COMMON NORMALS: Soft to palpation and No hepatosplenomegaly present AUSCULTATION: Yes normoactive bowel sounds PALPATION: Yes Soft to palpation, No Tenderness to palpation present (GI), No Guarding due to palpation present (GI) and Yes No hepatosplenomegaly present Extremity: COMMON NORMALS: normal to inspection, capillary refill normal, no clubbing, cyanosis or edema, no calf tenderness and no pedal edema Neuro: SENSORIUM/ORIENTATION: Yes oriented to person, Yes oriented to place and Yes oriented to time Skin: COMMON NORMALS: no rashes or lesions noted GENERAL SKIN EXAM: no rashes or lesions noted Course Vital Signs: Vital signs: Vital Signs Temperature 97.3 F L 01/23/22 11:57 Pulse Rate 101 H 01/23/22 16:30 Respiratory Rate 16 01/23/22 16:30 Blood Pressure 144/79 01/23/22 11:57 Pulse Oximetry 94 01/23/22 16:30 Oxygen Delivery Me thod 01/23/22 16:30 MDM - SOB/Dyspnea Medical Decision Making Mild cardiomegaly on the chest x-ray compared to previous. Home O2 testing shows patient requires 2 L/min when active. We will discharge patient home with oxygen. Case management to set her up for outpatient echocardiogram and pulmonary function test. We will also refer her to pulmonology. She has a follow-up appoint with Dr. Galarza next week. Medical Records I reviewed the patient's medical records. Lab Data I reviewed the patient's lab results. 01/23/22 13:30 01/23/22 13:30 Labs/Radiology: Radiology Impressions Chest X-Ray 01/23/22 13:01 IMPRESSION: 1. No acute findings. 2. Metallic hardware cervical spine Laboratory Results WBC 8.3 10^3/uL (4.0-10.0) 01/23/22 13:30 RBC 4.74 10^6/uL (4.1-5.3) 01/23/22 13:30 Hgb 13.7 g/dL (11.5-15.3) 01/23/22 13:30 Hct 43.4 % (37.0-47.0) 01/23/22 13:30 MCV 91.6 fl (81-99) 01/23/22 13:30 MCH 28.9 pg (28.0-34.0) 01/23/22 13:30 MCHC 31.6 g/dL (30.0-36.0) 01/23/22 13:30 RDW 13.2 % (12.1-15.1) 01/23/22 13:30 Plt Count 246 10^3/cmm (130-400) 01/23/22 13:30 MPV 11.0 fL (7.4-10.4) H 01/23/22 13:30 Neut % (Auto) 56.4 % 01/23/22 13:30 Lymph % (Auto) 31.9 % 01/23/22 13:30 [place] % (Auto) 8.8 % 01/23/22 13:30 Eos % (Auto) 2.4 % 01/23/22 13:30 Baso % (Auto) 0.4 % 01/23/22 13:30 Neut # (Auto) 4.70 10^3/uL (1.8-7.7) 01/23/22 13:30 Lymph # (Auto) 2.7 10^3/uL (0.8-4.8) 01/23/22 13:30 [place] # (Auto) 0.7 10^3/uL (0.2-0.9) 01/23/22 13:30 Eos # (Auto) 0.2 10^3/uL (0.0-0.8) 01/23/22 13:30 Baso # (Auto) 0.0 10^3/uL (0.0-0.1) 01/23/22 13:30 Nucleated RBC % (auto) 0 % 01/23/22 13:30 Nucleated RBCs # 0.0 /100WBC 01/23/22 13:30 D-Dimer 0.64 ug/mIFEU (0-0.59) H 01/23/22 13:30 Sodium 141 mmol/L (136-145) 01/23/22 13:30 Potassium 3.8 mmol/L (3.5-5.1) 01/23/22 13:30 Chloride 100 mmol/L (98-107) 01/23/22 13:30 Carbon Dioxide 34 mmol/L (22-29) H 01/23/22 13:30 Anion Gap 10.8 (5-19) 01/23/22 13:30 BUN 18 mg/dL (8-23) 01/23/22 13:30 Creatinine 0.6 mg/dL (0.5-0.9) 01/23/22 13:30 GFR Calculation 98.8 mL/min (90-130) 01/23/22 13:30 Glucose 123 mg/dL (65-115) H 01/23/22 13:30 Calculated Osmolality 295 mOsm/kg (285-295) 01/23/22 13:30 Calcium 9.5 mg/dL (8.5-10.5) 01/23/22 13:30 Total Bilirubin 0.2 mg/dL (0.15-1.2) 01/23/22 13:30 AST 18 U/L (0-32) 01/23/22 13:30 ALT 19 U/L (0-33) 01/23/22 13:30 Alkaline Phosphatase 148 U/L (35-105) H 01/23/22 13:30 Total Protein 7.4 g/dL (6.6-8.7) 01/23/22 13:30 Albumin 4.1 g/dL (3.5-5.2) 01/23/22 13:30 Globulin 3.3 g/dL (1.3-4.6) 01/23/22 13:30 Discharge Plan Discharge Patient Disposition: Home Clinical Impression: Cardiomegaly, COPD (chronic obstructive pulmonary disease) Condition: Stable Prescriptions: New prednisone 20 mg tablet 20 mg PO TID Qty: 15 0RF Rx Instructions: 1 p.o. 3 times daily x3 days, 1 p.o. twice daily x2 days, 1 p.o. daily x2 days albuterol sulfate 90 mcg/actuation HFA aerosol inhaler 2 inh INHALATION Q4H PRN (Reason: shortness of breath or wheezing) Qty: 18 0RF Symbicort 80-4.5 mcg/actuation HFA aerosol inhaler 1 inh inhalation BID Qty: 10.2 0RF No Action (DME) Night splint See Rx Instructions .Route .MEDSUPPLY Qty: 1 0RF Rx Instructions: As directed magnesium oxide 400 mg (241.3 mg magnesium) tablet 400 mg PO DAILY potassium gluconate 595 mg (99 mg) tablet 595 mg PO DAILY chlorthalidone 25 mg tablet 25 mg PO DAILY carvedilol 25 mg tablet 25 mg PO BID 90 Days Qty: 180 3RF Rx Instructions: must administer with a meal/food hydrocodone-acetaminophen 10-325 mg tablet 1 tab PO QID PRN (Reason: Pain) 7 Days Qty: 40 0RF (DME) Bone Growth Stimulator E0748 See Rx Instructions .Route .MEDSUPPLY Qty: 1 0RF Rx Instructions: As directed multivitamin [Multiple Vitamins] Tablet 1 tab PO DAILY vitamin B complex Tablet 1 tab PO QAM lisinopril 40 mg tablet 40 mg PO QAM rosuvastatin 20 mg tablet 20 mg PO BEDTIME melatonin 10 mg Tablet 10 mg PO BEDTIME gabapentin 300 mg capsule 300 mg PO QID ondansetron HCl 8 mg tablet 8 mg PO TID PRN (Reason: Nausea And Vomiting) aspirin 81 mg Tablet,Delayed Release (Dr/Ec) 81 mg PO QAM diphenhydramine HCl [Benadryl] 25 mg Capsule 25 mg PO TID PRN (Reason: Allergy Symptoms) promethazine 25 mg tablet 25 - 50 mg PO Q8H PRN (Reason: Nausea And Vomiting) esomeprazole magnesium 40 mg capsule,delayed release(DR/EC) 40 mg PO BEDTIME Belsomra 20 mg tablet 20 mg PO BEDTIME cholecalciferol (vitamin D3) [Vitamin D3] 125 mcg (5,000 unit) Tablet 125 mcg PO QAM buspirone 5 mg Tablet 5 mg PO BID Lasix 20 mg Tablet 20 mg PO DAILY Rx Instructions: x 5 days felodipine 10 mg tablet extended release 24 hr 10 mg PO DAILY Rx Instructions: Dose increased Discharge Orders: Discharge ED (Routine); Ordered 01/23/22 Ordered By: Ludwig Beal Other Ambulatory Orders: DME: Oxygen (Order) Location: None Selected Ordered By: Ludwig Beal Referrals: Del Galarza MD [Primary Care Provider] - Discharge Diet: Usual diet Discharge Activity: Limit activity as instructed Patient Instructions: Opioid Safety, Pain Management Activity Restrictions/Additional Instructions: Case management make arrangements for an outpatient echocardiogram and pulmonary function tests and refer you to pulmonology. When we tested you at rest your oxygen sats are normal but with exertion your oxygen sat does decrease and you qualify for home oxygen continuously at 2 L/min. Coding Level of Care Code ED Mining Captain for Harriett Fwd Exam Detailed
[2022-01-23 13:42] LABS: Basophils % 0.4 %; Eosinophils # 0.2 10^3/uL (0.0-0.8); Eosinophils % 2.4 %; Hematocrit 43.4 % (37.0-47.0); Hemoglobin 13.7 g/dL (11.5-15.3); Lymphocytes # 2.7 10^3/uL (0.8-4.8); Lymphocytes % 31.9 %; Mean Corpuscular HGB Conc 31.6 g/dL (30.0-36.0); Mean Corpuscular Hemoglobin 28.9 pg (28.0-34.0); Mean Corpuscular Volume 91.6 fl (81-99); Monocytes # 0.7 10^3/uL (0.2-0.9); Monocytes % 8.8 %; Neutrophils % 56.4 %; Nucleated Red Blood Cells % 0 %; Platelet Count 246 10^3/cmm (130-400); Red Blood Count 4.74 10^6/uL (4.1-5.3); Red Cell Distribution Width 13.2 % (12.1-15.1); White Blood Count 8.3 10^3/uL (4.0-10.0)
[2022-01-23 14:06] LABS: Alanine Aminotransferase 19 U/L (0-33); Albumin Level 4.1 g/dL (3.5-5.2); Alkaline Phosphatase 148 U/L (35-105); Anion Gap 10.8 (5-19); Aspartate Amino Transferase 18 U/L (0-32); Blood Urea Nitrogen 18 mg/dL (8-23); Calcium 9.5 mg/dL (8.5-10.5); Carbon Dioxide 34 mmol/L (22-29); Chloride 100 mmol/L (98-107); Globulin 3.3 g/dL (1.3-4.6); Glomerular Filtration Rate 98.8 mL/min (90-130); Glucose 123 mg/dL (65-115); Osmolality Calculated 295 mOsm/kg (285-295); Potassium 3.8 mmol/L (3.5-5.1); Sodium 141 mmol/L (136-145); Total Bilirubin 0.2 mg/dL (0.15-1.2); Total Protein 7.4 g/dL (6.6-8.7)
[2022-01-23 16:30] VITALS: PULSE 101; RESP 16; O2SAT 94
[2022-01-23 16:42] LABS: D Dimer 0.64 ug/mIFEU (0-0.59)
--- NOTE | 2022-01-24 09:52 | DCPLANNER ---
Addendum entered by Sue Jimenez 05/22/22 07:59: Patient had a follow up appointment scheduled with pulmonlogy - patient did attend appointment Addendum entered by Sue Jimenez 01/26/22 09:53: Patient has a follow up appointment scheduled for Sunday, April 12, 2022 at 9:[address] [facility] clinic will call patient with appointment information. Original Note: software test manager had message to schedule a follow up appointment scheduled for patient with pulmonology. software test manager sent patients information to the front [facility] staff [facility] the [facility]. Patients information will be printed and reviewed. Clinic will call patient with appointment information.
--- NOTE | 2022-01-24 09:54 | DCPLANNER ---
Addendum entered by Sue Jimenez 05/22/22 08:04: Patient had an echo and a PFT scheduled - patient attended both appointments Addendum entered by Sue Jimenez 01/24/22 09:58: ux design manager also faxed patients primary care physician, Dr. Galarza notification that the ER physician ordered these tests on patient. Original Note: ux design manager had message to schedule an outpatient echo and PFT for patient. ux design manager faxed signed order to centralized scheduling, who will call patient with appointment information.
== END 2022-01-23 16:30 | disposition home or self-care (01) ==
PROVIDERS: Emergency Provider Family Medicine; PCP Family Medicine
DX: I11.9 Hypertensive heart disease without heart failure (principal); J44.9 Chronic obstructive pulmonary disease, unspecified; Z79.82 Long term (current) use of aspirin; Z87.891 Personal history of nicotine dependence; Z86.73 Personal history of transient ischemic attack (TIA), and cerebral infarction without residual deficits; E78.2 Mixed hyperlipidemia
CPT/HCPCS: 36415; 71045; 80053; 85025; 85378; 93005; 99285

== ENCOUNTER 2022-02-15 18:17 | Emergency (ER) | payer MEDICARE, MEDICAID, SELFPAY ==
[2022-02-15 18:21] VITALS: BP 155/74; PULSE 88; RESP 19; TEMP 37.3; O2SAT 97; BMI 35.2
--- NOTE | 2022-02-15 18:26 | XRR_ITS ---
PROCEDURE INFORMATION: Exam: XR Chest Exam date and time: 02/15/2022 6:30 PM Age: 71 years old Clinical indication: Shortness of breath; Additional info: SOB TECHNIQUE: Imaging protocol: Radiologic exam of the chest. Views: 1 view. COMPARISON: CR XR chest 1V portable [id number] 01/23/2022 12:59 PM FINDINGS: Lungs: Changes of emphysema. The lungs are clear. No consolidation. Pleural spaces: Unremarkable. No pleural effusion. No pneumothorax. Heart/Mediastinum: Unremarkable. No cardiomegaly. Bones/joints: Fusion hardware in the cervical and upper thoracic spine. XR/XR chest 1V portable [id number] IMPRESSION: No acute findings.
--- NOTE | 2022-02-15 18:35 | ECG_ITS ---
[facility] Test Date: 2022-02-15 Pat Name: Constance Toussaint Department: Room: Gender: Female Organ Tuner: : 1950 Requested By: Delon Cordon Order Number: [id number] Mandy MD: Francisco Zuleta M.D. Measurements Intervals [place] Rate: 83 P: 7 [place]: 168 QRS: 53 QRSD: 78 T: 69 QT: 337 QTc: 397 Interpretive Statements SINUS RHYTHM WITH SINUS ARRHYTHMIA Compared to ECG 01/23/2022 12:00:14 No significant changes Electronically Signed On 02-17-2022 13:51:13 VACUUM TESTER CANS by Francisco Zuleta M.D. [email or web address]
[2022-02-15] MEDS: acetaminophen 500 mg Tablet 1000 MG PO (18:49)
--- NOTE | 2022-02-15 18:53 | W.ED.SOB ---
HPI - SOB/Dyspnea General: Chief Complaint: Shortness of Breath/Dyspnea Stated Complaint: SOB/ POSSIBLE COVID Time Seen by Provider: 02/15/22 18:19 Source: patient and EMS Mode of arrival: EMS Limitations: no limitations History of Present Illness: HPI Narrative: 71-year-old female who states that she tested positive for COVID this morning states she had cough congestion over the last 2 days states she been having increasing wheezing and shortness of breath she is a longtime smoker she has COPD she states she wears 2 to 4 L at baseline but has been having to consistently wear it for period she denies any pain denies any vomiting. Associated symptoms: Deny abdominal pain, chest pain, fever(s), nausea or vomiting Review of Systems Const: Denies: fever(s), chills, body aches or change in appetite Eyes: Denies: blurry vision or eye discomfort ENMT: Denies: throat pain or dental pain Card: Denies: chest pain Resp: Reports: dyspnea, non-productive cough and wheezing GI: Denies: abdominal pain, nausea, vomiting or diarrhea : Denies: dysuria Musc: Denies: neck pain or back pain Skin/Breast: Denies: rash Neuro: Denies: headache(s) Psych: Denies: depression [place]/Lymph: Denies: easy bruising All/Imm: Denies: urticaria PFSH ED PFSH: Medical History Abscess, neck Carotid stenosis RM (dyspnea on exertion) History of CVA (cerebrovascular accident) Hx of tuberculosis Hyperlipemia, mixed Hypertension Paroxysmal cardiac arrhythmia Pulmonary hypertension Ventricular arrhythmia Surgical History H/O neck surgery H/O: hysterectomy History of arthroplasty of right knee History of back surgery History of tonsillectomy and adenoidectomy Hx of appendectomy Hx of cholecystectomy Hx of neck surgery Hx of oophorectomy Hx of oophorectomy Family History Mother CAD (coronary artery disease) Father CAD (coronary artery disease) Brother CAD (coronary artery disease) Stroke Daughter Cancer Sister Dementia Denies family history of Diabetes Clotting disorder Chronic kidney disease (CKD) Suicide Anesthesia complication Bleeding disorder Lung disease Social History Smoking and tobacco status: former smoker Quit status (tobacco): has quit using tobacco Second hand smoke exposure: No Smoking risk assessment/counseling performed?: No Alcohol intake: never Physical Exam Const: COMMON NORMALS: patient oriented x3 HENMT: COMMON NORMALS: normocephalic and atraumatic HEAD & SCALP: normocephalic and atraumatic Eye: COMMON NORMALS: Equal, round and reactive pupils present and EOMs intact bilaterally PUPIL: Yes Equal, round and reactive pupils present Neck/C-Spine: COMMON NORMALS: full ROM and supple Chest: COMMONS NORMALS: normal inspection of the chest and normal palpation of entire chest wall Resp: COMMON NORMALS: normal respiratory effort, No retractions and No use of accessory muscles AUSCULTATION: wheezes Cardio: COMMON NORMALS: regular rate, regular rhythm and No murmurs present (Cardio) RATE: regular rate RHYTHM: regular rhythm GI: COMMON NORMALS: Normal to inspection, nondistended, normoactive bowel sounds present, Soft to palpation, non-tender and no masses PALPATION: Yes Soft to palpation Extremity: COMMON NORMALS: normal to inspection and full ROM Neuro: COMMON NORMALS: patient oriented x3, moves all extremities and no focal motor deficits Psych: COMMON NORMALS: mental status grossly normal, Normal thought process present and cooperative THOUGHT PROCESS: Normal thought process present Skin: COMMON NORMALS: no rashes or lesions noted and no wounds GENERAL SKIN EXAM: no rashes or lesions noted Course Vital Signs: Vital signs: Vital Signs Temperature 100.4 F H 02/15/22 18:55 Pulse Rate 86 02/15/22 19:15 Respiratory Rate 18 02/15/22 19:12 Blood Pressure 125/65 02/15/22 18:55 Pulse Oximetry 94 02/15/22 19:12 Oxygen Delivery Me thod 02/15/22 19:12 Oxygen Flow Rate 4 02/15/22 19:12 MDM - SOB/Dyspnea Medical Decision Making Patient presents here with COVID likely causing her shortness of breath she is back on 2 L here x-ray showed no pneumonia she is well-appearing we will prescribe her steroids she has albuterol inhaler at home she is followed by her PCP and return if worsening. Lab Data 02/15/22 19:03 02/15/22 19:03 Labs/Radiology: Radiology Impressions Chest X-Ray 02/15/22 18:26 IMPRESSION: No acute findings. Laboratory Results WBC 7.5 10^3/uL (4.0-10.0) 02/15/22 19:03 RBC 3.87 10^6/uL (4.1-5.3) L 02/15/22 19:03 Hgb 11.3 g/dL (11.5-15.3) L 02/15/22 19:03 Hct 36.5 % (37.0-47.0) L 02/15/22 19:03 MCV 94.3 fl (81-99) 02/15/22 19:03 MCH 29.2 pg (28.0-34.0) 02/15/22 19:03 MCHC 31.0 g/dL (30.0-36.0) 02/15/22 19:03 RDW 14.9 % (12.1-15.1) 02/15/22 19:03 Plt Count 199 10^3/cmm (130-400) 02/15/22 19:03 MPV 11.0 fL (7.4-10.4) H 02/15/22 19:03 Neut % (Auto) 59.7 % 02/15/22 19:03 Lymph % (Auto) 24.5 % 02/15/22 19:03 [place] % (Auto) 15.3 % 02/15/22 19:03 Eos % (Auto) 0.1 % 02/15/22 19:03 Baso % (Auto) 0.1 % 02/15/22 19:03 Neut # (Auto) 4.49 10^3/uL (1.8-7.7) 02/15/22 19:03 Lymph # (Auto) 1.8 10^3/uL (0.8-4.8) 02/15/22 19:03 [place] # (Auto) 1.2 10^3/uL (0.2-0.9) H 02/15/22 19:03 Eos # (Auto) 0.0 10^3/uL (0.0-0.8) 02/15/22 19:03 Baso # (Auto) 0.0 10^3/uL (0.0-0.1) 02/15/22 19:03 Nucleated RBC % (auto) 0 % 02/15/22 19:03 Nucleated RBCs # 0.0 /100WBC 02/15/22 19:03 Sodium 140 mmol/L (136-145) 02/15/22 19:03 Potassium 3.7 mmol/L (3.5-5.1) 02/15/22 19:03 Chloride 100 mmol/L (98-107) 02/15/22 19:03 Carbon Dioxide 32 mmol/L (22-29) H 02/15/22 19:03 Anion Gap 11.7 (5-19) 02/15/22 19:03 BUN 12 mg/dL (8-23) 02/15/22 19:03 Creatinine 0.7 mg/dL (0.5-0.9) 02/15/22 19:03 GFR Calculation 82.7 mL/min (90-130) L 02/15/22 19:03 Glucose 96 mg/dL (65-115) 02/15/22 19:03 Calculated Osmolality 290 mOsm/kg (285-295) 02/15/22 19:03 Calcium 8.7 mg/dL (8.5-10.5) 02/15/22 19:03 Total Bilirubin 0.3 mg/dL (0.15-1.2) 02/15/22 19:03 AST 35 U/L (0-32) H 02/15/22 19:03 ALT 24 U/L (0-33) 02/15/22 19:03 Alkaline Phosphatase 111 U/L (35-105) H 02/15/22 19:03 NT-Pro-B Natriuret Pep 1197 pg/mL (0-125) H 02/15/22 19:03 Total Protein 6.8 g/dL (6.6-8.7) 02/15/22 19:03 Albumin 3.6 g/dL (3.5-5.2) 02/15/22 19:03 Globulin 3.2 g/dL (1.3-4.6) 02/15/22 19:03 EKG Data EKG 1: I personally reviewed and interpreted this EKG as follows: EKG Interpretation Date: 02/15/22 EKG interpretation time: 18:51 Interpretation: nsr hr [address] or t wave abnormalities qrs 78 qtc 377 Discharge Plan Discharge Patient Disposition: Home Clinical Impression: COVID-19 Condition: Stable Prescriptions: New prednisone 50 mg tablet 50 mg PO DAILY Qty: 5 0RF No Action (DME) Night splint See Rx Instructions .Route .MEDSUPPLY Qty: 1 0RF Rx Instructions: As directed magnesium oxide 400 mg (241.3 mg magnesium) tablet 400 mg PO DAILY potassium gluconate 595 mg (99 mg) tablet 595 mg PO DAILY chlorthalidone 25 mg tablet 25 mg PO DAILY carvedilol 25 mg tablet 25 mg PO BID 90 Days Qty: 180 3RF Rx Instructions: must administer with a meal/food hydrocodone-acetaminophen 10-325 mg tablet 1 tab PO QID PRN (Reason: Pain) 7 Days Qty: 40 0RF (DME) Bone Growth Stimulator E0748 See Rx Instructions .Route .MEDSUPPLY Qty: 1 0RF Rx Instructions: As directed multivitamin [Multiple Vitamins] Tablet 1 tab PO DAILY vitamin B complex Tablet 1 tab PO QAM lisinopril 40 mg tablet 40 mg PO QAM rosuvastatin 20 mg tablet 20 mg PO BEDTIME melatonin 10 mg Tablet 10 mg PO BEDTIME gabapentin 300 mg capsule 300 mg PO QID ondansetron HCl 8 mg tablet 8 mg PO TID PRN (Reason: Nausea And Vomiting) aspirin 81 mg Tablet,Delayed Release (Dr/Ec) 81 mg PO QAM diphenhydramine HCl [Benadryl] 25 mg Capsule 25 mg PO TID PRN (Reason: Allergy Symptoms) promethazine 25 mg tablet 25 - 50 mg PO Q8H PRN (Reason: Nausea And Vomiting) esomeprazole magnesium 40 mg capsule,delayed release(DR/EC) 40 mg PO BEDTIME Belsomra 20 mg tablet 20 mg PO BEDTIME cholecalciferol (vitamin D3) [Vitamin D3] 125 mcg (5,000 unit) Tablet 125 mcg PO QAM buspirone 5 mg Tablet 5 mg PO BID Lasix 20 mg Tablet 20 mg PO DAILY Rx Instructions: x 5 days felodipine 10 mg tablet extended release 24 hr 10 mg PO DAILY Rx Instructions: Dose increased prednisone 20 mg tablet 20 mg PO TID Qty: 15 0RF Rx Instructions: 1 p.o. 3 times daily x3 days, 1 p.o. twice daily x2 days, 1 p.o. daily x2 days albuterol sulfate 90 mcg/actuation HFA aerosol inhaler 2 inh INHALATION Q4H PRN (Reason: shortness of breath or wheezing) Qty: 18 0RF Symbicort 80-4.5 mcg/actuation HFA aerosol inhaler 1 inh inhalation BID Qty: 10.2 0RF Discharge Orders: Discharge ED (Routine); Ordered 02/15/22 Ordered By: Delon Cordon Referrals: Del Galarza MD [Primary Care Provider] - 1-3 days Discharge Diet: Advance as tolerated Discharge Activity: Resume usual activity Patient Instructions: COVID-19 (Coronavirus Disease 2019) (ED) Coding Level of Care Code ED Shearer Screen Measurer And Trimmer for Chg Fwd Exam Comprehensive
[2022-02-15 18:55] VITALS: BP 125/65; PULSE 85; RESP 18; TEMP 38; O2SAT 99
[2022-02-15 19:09] LABS: Basophils % 0.1 %; Eosinophils % 0.1 %; Hematocrit 36.5 % (37.0-47.0); Hemoglobin 11.3 g/dL (11.5-15.3); Lymphocytes # 1.8 10^3/uL (0.8-4.8); Lymphocytes % 24.5 %; Mean Corpuscular Hemoglobin 29.2 pg (28.0-34.0); Mean Corpuscular Volume 94.3 fl (81-99); Monocytes # 1.2 10^3/uL (0.2-0.9); Monocytes % 15.3 %; Neutrophils # 4.49 10^3/uL (1.8-7.7); Neutrophils % 59.7 %; Nucleated Red Blood Cells % 0 %; Platelet Count 199 10^3/cmm (130-400); Red Blood Count 3.87 10^6/uL (4.1-5.3); Red Cell Distribution Width 14.9 % (12.1-15.1); White Blood Count 7.5 10^3/uL (4.0-10.0)
[2022-02-15 19:12] VITALS: PULSE 84; RESP 18; O2SAT 94
[2022-02-15] MEDS: ipratropium-albuterol 3 mL Neb INHALATION (19:12)
[2022-02-15 19:15] VITALS: PULSE 86
[2022-02-15 19:43] LABS: Alanine Aminotransferase 24 U/L (0-33); Albumin Level 3.6 g/dL (3.5-5.2); Alkaline Phosphatase 111 U/L (35-105); Anion Gap 11.7 (5-19); Aspartate Amino Transferase 35 U/L (0-32); Blood Urea Nitrogen 12 mg/dL (8-23); Calcium 8.7 mg/dL (8.5-10.5); Carbon Dioxide 32 mmol/L (22-29); Chloride 100 mmol/L (98-107); Creatinine Clr Calc Pharmacy 72.3239; Globulin 3.2 g/dL (1.3-4.6); Glomerular Filtration Rate 82.7 mL/min (90-130); Glucose 96 mg/dL (65-115); NT Pro B Type Natriuretic Pept 1197 pg/mL (0-125); Osmolality Calculated 290 mOsm/kg (285-295); Potassium 3.7 mmol/L (3.5-5.1); Sodium 140 mmol/L (136-145); Total Bilirubin 0.3 mg/dL (0.15-1.2); Total Protein 6.8 g/dL (6.6-8.7)
== END 2022-02-15 20:29 | disposition home or self-care (01) ==
PROVIDERS: Emergency Provider Emergency Medicine; PCP Family Medicine
DX: U07.1 COVID-19 (principal); Z79.82 Long term (current) use of aspirin; Z87.891 Personal history of nicotine dependence; Z86.73 Personal history of transient ischemic attack (TIA), and cerebral infarction without residual deficits; E78.2 Mixed hyperlipidemia; I10 Essential (primary) hypertension
CPT/HCPCS: 71045; 80053; 83880; 85025; 93005; 94640; 96374; 99285; J2930

== ENCOUNTER 2022-03-17 12:29 | Outpatient (CLI) | payer MEDICARE, MEDICAID, SELFPAY ==
--- NOTE | 2022-03-17 12:37 | CT_ITS ---
WS: [id number] CTA OF THE CHEST WITH PULMONARY EMBOLISM PROTOCOL TECHNIQUE: High-resolution contrast enhanced CTA of the chest with coronal and sagittal reformatted i mages with pulmonary embolism protocol. MIP images are also reviewed. CLINICAL INFORMATION: ELEVATED D DIMER COMPARISON: CTa 013 DLP: 418.[address] scans at [facility] use at least one of these dose optimization techniques: automated e xposure control; mA and/or kV adjustment per patient size (includes targeted exams where dose is matc hed to clinical indication); or iterative reconstruction. FINDINGS: Proximal main pulmonary arteries are normal. Normal segmental and subsegmental pulmonary arteries. No evidence of pulmonary embolus. Normal caliber thoracic aorta. No mediastinal or hilar lymphadenopath y. Mild bilateral bronchovascular thickening. Coronary calcification. Cholecystectomy clips. Prior gastric bypass. Splenic artery calcification. Adrenal glands are normal. A few reactive lymph nodes in the yue hepatis. Mild chronic emphysematous changes. Slight RIGHT ba silar atelectasis. No focal pneumonia or pleural fluid. Postoperative changes lower cervical and uppe r thoracic spine. CT/CT angio chest PE protcl [id number] IMPRESSION: 1. No evidence of pulmonary embolus. 2. Lungs are well aerated. No acute pulmonary infiltrates. Slight RIGHT basila r atelectasis. 3. Evidence of prior gastric bypass. 4. Prior cholecystectomy.
== END 2022-03-17 12:30 | disposition home or self-care (01) ==
LOC: RAD 12:30
PROVIDERS: PCP Family Medicine; Visit Provider Family Medicine
DX: R79.89 Other specified abnormal findings of blood chemistry (principal); J98.11 Atelectasis; Z90.49 Acquired absence of other specified parts of digestive tract
CPT/HCPCS: 71275; Q9967

== ENCOUNTER 2022-03-23 12:58 | Outpatient (CLI) | payer MEDICARE, MEDICAID, SELFPAY ==
--- NOTE | 2022-03-23 13:05 | USCV_ITS ---
Constance Toussaint Age: 71 Gender: F : 1950 Exam Date: 03/23/2022 13:45 Ordering Phys: Ludwig Beal DO Technologist: Exam Location: [facility] [place] Indication: dizzy BP: 150 / 90 HR: 62 Rhythm: Sinus Technical Quality: Adequate MEASUREMENTS (Male / Female) Normal Values 2D ECHO LV Diastolic Diameter PLAX 5.0 cm 4.2 - 5.9 / 3.9 - 5.3 cm LV Systolic Diameter PLAX 2.7 cm IVS Diastolic Thickness 1.1 cm 0.6 - 1.0 / 0.6 - 0.9 cm IVS Systolic Thickness 1.4 cm LVPW Diastolic Thickness 1.0 cm 0.6 - 1.0 / 0.6 - 0.9 cm LVPW Systolic Thickness 1.5 cm LVOT Diameter 2.0 cm LV Ejection Fraction 2D Teich 76.6 % LV Ejection Fraction MOD 2C 72.7 % LV Ejection Fraction 2C AL 71.7 % LA Diameter 3.7 cm Aorta at Sinotubular Diameter 2.3 cm IVC Diameter 1.5 cm M-MODE Aortic Annulus Diameter 3.0 cm LA Ao Ratio MM 1.3 MV E Point Septal Separation 1.0 cm DOPPLER AV Peak Velocity 174.0 cm/s LVOT Peak Velocity 120.0 cm/s AV Area Cont Eq vti 1.9 cm squared AV Area Cont Eq pk 2.1 cm squared MV Area PHT 3.1 cm squared Mitral E to A Ratio 0.9 MV E' Velocity 54.0 cm/s Mitral E to MV E' Ratio 9.6 Mitral E to LV E' Lateral Ratio 10.1 Mitral E to LV E' Septal Ratio 9.2 TR Peak Velocity 244.0 cm/s TR Peak Gradient 23.8 mmHg TV Peak E Velocity 94.0 cm/s Right Atrial Pressure 3.0 mmHg Pulmonary Artery Systolic Pressu 26.8 mmHg RV Acceleration Time 0.1 s FINDINGS Left Ventricle Left ventricle is normal in size. LV systolic function is normal with EF of 55 to 60%. No regional wall motion abnormalities are seen. Right Ventricle Normal in size and function Right Atrium Normal in size Left Atrium Normal in size Mitral Valve Mitral valve is thickened. Mild mitral regurgitation. Aortic Valve Aortic valve is thickened. No significant stenosis or regurgitation is seen. Tricuspid Valve Mild tricuspid regurgitation. Pulmonary artery systolic pressure is normal. Pulmonic Valve Not well-visualized Pericardium Normal Aorta Normal in size IVC Appears to be normal CONCLUSIONS LV systolic function is normal with EF of 55 to 60%. Mild mitral regurgitation Mild tricuspid regurgitation Compared to prior echocardiogram from 2019, no significant changes are seen. Francisco Zuleta MD (Electronically Signed) Final Date: 25 March 2022 21:12 S
== END 2022-03-23 12:59 | disposition home or self-care (01) ==
LOC: RAD 12:58
PROVIDERS: PCP Family Medicine; Visit Provider Family Medicine
DX: R06.00 Dyspnea, unspecified (principal); I08.1 Rheumatic disorders of both mitral and tricuspid valves
CPT/HCPCS: 93306

== ENCOUNTER → 2022-04-12 08:49 | Outpatient (BNVA) | payer MEDICARE, MEDICAID, SELFPAY | PROVIDERS: PCP Family Medicine; Visit Provider Internal Medicine Pulmonary Disease | DX: R06.00 Dyspnea, unspecified (principal); I27.20 Pulmonary hypertension, unspecified; J44.9 Chronic obstructive pulmonary disease, unspecified; Z87.891 Personal history of nicotine dependence; G47.33 Obstructive sleep apnea (adult) (pediatric) | CPT/HCPCS: 99204 ==

== ENCOUNTER 2022-05-03 10:09 | Outpatient (CLI) | payer MEDICARE, MEDICAID, SELFPAY ==
[2022-05-03 10:27] VITALS: PULSE 63; RESP 18; O2SAT 91
[2022-05-03] MEDS: albuterol 2.5 mg/3 mL Neb INHALATION (10:27)
[2022-05-03 10:32] VITALS: PULSE 60
== END 2022-05-03 10:10 | disposition home or self-care (01) ==
LOC: RT 10:13
PROVIDERS: PCP Family Medicine; Visit Provider Internal Medicine Pulmonary Disease
DX: U07.1 COVID-19 (principal); I27.20 Pulmonary hypertension, unspecified
CPT/HCPCS: 94060; 94618; 94726; 94729

== ENCOUNTER → 2022-07-13 12:07 | Outpatient (BNVA) | payer MEDICARE, MEDICAID, SELFPAY | PROVIDERS: PCP Family Medicine; Visit Provider Internal Medicine Pulmonary Disease | DX: J44.9 Chronic obstructive pulmonary disease, unspecified (principal); I27.20 Pulmonary hypertension, unspecified; Z87.891 Personal history of nicotine dependence; J82.83 Eosinophilic asthma; G47.33 Obstructive sleep apnea (adult) (pediatric) | CPT/HCPCS: 99214 ==

== ENCOUNTER → 2022-08-17 13:18 | Outpatient (BNVA) | payer MEDICARE, MEDICAID, SELFPAY | PROVIDERS: PCP Family Medicine; Visit Provider Orthopaedic Surgery | DX: M54.9 Dorsalgia, unspecified (principal); M48.062 Spinal stenosis, lumbar region with neurogenic claudication | CPT/HCPCS: 72110; 99214 ==

== ENCOUNTER → 2022-08-21 14:30 | Outpatient (BNVA) | payer MEDICARE, MEDICAID, SELFPAY | PROVIDERS: PCP Family Medicine; Visit Provider Specialist | DX: M65.341 Trigger finger, right ring finger (principal); Z01.818 Encounter for other preprocedural examination | CPT/HCPCS: 36415; 73130; 80053; 85025; 99205 ==

== ENCOUNTER 2022-09-06 10:53 | Outpatient (CLI) | payer MEDICARE, MEDICAID, SELFPAY ==
--- NOTE | 2022-09-06 11:00 | MR_ITS ---
WS: [id number] MRI LUMBAR SPINE NONCONTRAST HISTORY: Lumbar Spine Pain COMPARISON: 01/11/2016 TECHNIQUE: Sagittal and axial multisequence imaging is submitted. Postoperative changes are in the cervical spine. Detail is limited on this localizer image. Mild anterolisthesis of L4. Progression of degenerative disc space narrowing at L4-5. New marrow mike a along the anterior superior endplate of L3. No acute compression fractures. Conus terminates normally at L1-2 disc level. L1-L2: Mild annular disc bulging with marked facet and ligamentum flavum arthritis. Shallow RIGHT par acentral disc protrusion. Mild effacement of ventral CSF and narrowing of the central canal and subar ticular recesses. Similar to the prior study. L2-L3: New diffuse annular disc bulging with marked ligamentum flavum and facet arthritis. Effacement of the ventral thecal sac and CSF. Severe central, bilateral subarticular recess and moderate forami nal stenosis. Severe encroachment upon the traversing L3 nerve roots. L3-L4: Marked annular disc bulging with ligamentum flavum and facet arthritis. Severe central, bilate ral subarticular recess and moderate LEFT foraminal stenosis. Mild RIGHT foraminal stenosis. Progress ion of stenosis since the prior study. Most significant encroachment upon the traversing L4 nerve mirella ts. L4-L5: Osteophytic ridging encroaching upon the ventral thecal sac. There is a large posterior reji ctomy defect. Bone graft fusion posterior laterally. There is mild encroachment into the LEFT lateral thecal sac with the bone graft. Mild progression of central stenosis since the prior study. L5-S1: Annular disc bulging with severe ligamentum flavum and facet arthritis. Severe facet joint art hropathy. Central canal narrowed with posterior RIGHT hemilaminectomy defect. Moderate bilateral fora dea stenosis. LEFT renal cortical cysts. MR/MR lumbar spine wo con* [id number] IMPRESSION: 1. Progression of stenoses, degenerative disc disease and facet arthritis of t he lumbar spine since 2016. 2. L1-2: Unchanged RIGHT paracentral disc protrusion with mild central and sub articular recess stenosis. 3. L2-3: Severe central, bilateral subarticular recess and moderate foraminal stenosis. 4. L3-4: Severe central, bilateral subarticular recess and moderate LEFT feliz inal stenosis. Significant encroachment upon the traversing L4 nerve roots. 5. L4-5: Large posterior laminectomy defect. Mild progression of central steno sis. 6. L5-S1: Moderate bilateral foraminal stenosis.
== END 2022-09-06 10:54 | disposition home or self-care (01) ==
LOC: RAD 10:58
PROVIDERS: PCP Family Medicine; Visit Provider Orthopaedic Surgery
DX: M48.07 Spinal stenosis, lumbosacral region (principal); M51.36 Other intervertebral disc degeneration, lumbar region; M47.817 Spondylosis without myelopathy or radiculopathy, lumbosacral region
CPT/HCPCS: 72148

== ENCOUNTER 2022-09-15 06:36 | Day surgery (SDC) | payer MEDICARE, MEDICAID, SELFPAY ==
[2022-09-14 08:18] VITALS: BMI 29.8
[2022-09-15] VITALS (8 sets, daily range): BP systolic 106–129; BP diastolic 48–68; PULSE 65–74; RESP 16–17; TEMP 36.1–36.6; O2SAT 94–100
--- NOTE | 2022-09-15 07:00 | W.PM.OPSUD ---
Surgery/Procedure H&P Update DATE OF PROCEDURE: September 15, 2022 DATE H&P PERFORMED: 08/24/22 H&P UPDATE INFORMATION: I have reviewed H&P completed within last 30 days, I have examined patient prior to procedure, No changes to prior documentation and H&P is in [facility] EMR on date indicated PLANNED PROCEDURE: Operation Date: 09/15/22 08:20 Proposed Procedures p RIGHT RING FINGER TRIGGER FINGER RELEASE [id number],M65.30(Right) - Karolina Sims MD Related Problem List Diagnoses (1) Acquired trigger finger of right ring finger:
[2022-09-15] MEDS: acetaminophen 1,000 MG/100 ML PIGGYBACK 400 MG IV (07:32)
[2022-09-15] MEDS: sodium chloride 0.9% 1,000 ML 30 ML IV (07:33)
[2022-09-15] MEDS: CELEcoxib 200 mg Capsule 400 MG PO (07:34)
--- NOTE | 2022-09-15 07:39 | ANES.PREANE2 ---
Pre-Anesthetic Assessment Height/Weight: Height 1.63 m Weight 78.925 kg Temp Pulse Resp BP Pulse Ox O2 Del Method 97.9 F 74 16 129/68 97 Room Air 09/15/22 07:15 09/15/22 07:15 09/15/22 07:15 09/15/22 07:15 09/15/22 07:15 09/15/22 07:18 Operation Date: 09/15/22 08:20 Proposed Procedures p RIGHT RING FINGER TRIGGER FINGER RELEASE [id number],M65.30(Right) - Karolina Sims MD Familial anesthetic complications: None Was Beta Joselin taken within 24 hours: Yes Was Clonidine taken within 24 hours: N/A Last intake: Intake Last Liquid Date 09/14/22 Last Liquid Time 20:15 Last Solid Date 09/14/22 Last Solid Time 20:15 Social No alcohol and No tobacco former Exam alert, oriented x 3, clear to auscultation bilaterally and regular rate & rhythm Airway Mallampati: Class II Dentition: full Pulmonary Asthma, Chronic Obstructive Pulmonary Disease and Sleep Apnea CV/HEM Arrythmia, Coronary Artery Disease, Hypertension and Myocardial Infarction Neuropsych carotid bruit Anesthetic Plan ASA status: 3 Anesthesia: Choice Risk of > 500 ml blood loss (7ml/kg in children): No Medications/Allergies Home Medications Medication Instructions Recorded Confirmed Last Taken Type lisinopril 40 mg tablet 40 mg PO QAM 08/07/19 09/15/22 09/15/22 History multivitamin (Multiple Vitamins 1 tab PO DAILY 08/07/19 09/14/22 09/14/22 History tablet) rosuvastatin 20 mg tablet 20 mg PO BEDTIME 08/07/19 09/14/22 09/13/22 History vitamin B complex 1 tab PO QAM 08/07/19 09/14/22 09/07/22 History melatonin 10 mg tablet 10 mg PO BEDTIME 11/26/19 09/14/22 09/14/22 History gabapentin 300 mg capsule 300 mg PO QID 07/21/20 09/14/22 09/14/22 History aspirin 81 mg tablet,delayed 81 mg PO QAM 01/12/21 09/14/22 09/10/22 History release diphenhydramine HCl 25 mg capsule 25 mg PO TID PRN Allergy Symptoms 01/12/21 09/15/22 09/15/22 History (Benadryl) promethazine 25 mg tablet 25 - 50 mg PO Q8H PRN Nausea And 01/12/21 09/14/22 Unknown History Vomiting Night splint #1 ea 02/28/21 09/06/22 Unknown Rx cholecalciferol (vitamin D3) 125 125 mcg PO QAM 05/10/21 09/15/22 09/15/22 History mcg (5,000 unit) tablet (Vitamin D3) esomeprazole magnesium 40 mg 40 mg PO BEDTIME 05/10/21 09/14/22 09/15/22 History capsule,delayed release suvorexant 20 mg tablet (Belsomra) 20 mg PO BEDTIME 05/10/21 09/15/22 09/15/22 History ondansetron HCl 8 mg tablet 8 mg PO TID PRN Nausea And Vomiting 05/16/21 09/15/22 09/02/22 History Bone Growth Stimulator E0748 #1 ea 05/27/21 09/06/22 Unknown Rx hydrocodone 10 mg-acetaminophen 1 tab PO QID PRN Pain 7 days #40 06/23/21 09/14/22 09/15/22 Rx 325 mg tablet tabs carvedilol 25 mg tablet 25 mg PO BID 90 days #180 tabs 01/03/22 09/15/22 09/15/22 Rx chlorthalidone 25 mg tablet 25 mg PO DAILY 01/03/22 09/15/22 09/15/22 History buspirone 5 mg tablet 5 mg PO BID 01/23/22 09/15/22 09/15/22 History felodipine 10 mg tablet,extended 10 mg PO DAILY 01/23/22 09/14/22 09/15/22 History release 24 hr albuterol sulfate 90 mcg/actuation 2 inh inhalation Q4H PRN shortness 04/12/22 09/15/22 09/14/22 Rx aerosol inhaler of breath or wheezing #18 grams Allergies Allergy/AdvReac Type Severity Reaction Status Date / Time cephalexin [From Keflex] Allergy ALGY-Difficulty Verified 09/06/22 09:08 Breathing codeine Allergy Unknown Verified 09/06/22 09:08 orphenadrine [From Norgesic] Allergy ADR-Itching Verified 09/06/22 09:08 Penicillins Allergy Unknown Verified 09/06/22 09:08 pentazocine [From Talwin] Allergy Unknown Verified 09/06/22 09:08 Sulfa (Sulfonamide Allergy Unknown Verified 09/06/22 09:08 Antibiotics) sulfamethoxazole Allergy ALGY-Difficulty Verified 09/06/22 09:08 [From Bactrim] Breathing tiagabine [From Gabitril] Allergy Unknown Verified 09/06/22 09:08 trimethoprim [From Bactrim] Allergy ALGY-Difficulty Verified 09/06/22 09:08 Breathing zonisamide [From Zonegran] Allergy Unknown Verified 09/06/22 09:08 Current Medications Generic Name Dose Route Start Last Admin Trade Name Freq PRN Reason Stop Dose Admin Sodium Chloride 1,000 mls @ 30 mls/hr 09/15/22 07:00 09/15/22 07:33 Sodium Chloride 0.9% IV 09/16/22 06:59 30 mls/hr .Q24H TYRONE Administration PFSH Anesthesia Medical History Abscess, neck Carotid stenosis less than 50% on 2021 doppler RM (dyspnea on exertion) Heart murmur mild mitral and tricuspid regurg History of CVA (cerebrovascular accident) no symptoms in the last year Hx of tuberculosis Hyperlipemia, mixed Hypertension Paroxysmal cardiac arrhythmia Ventricular arrhythmia Surgical History H/O neck surgery H/O: hysterectomy History of arthroplasty of right knee History of back surgery History of tonsillectomy and adenoidectomy History of tubal ligation Hx of appendectomy Hx of cholecystectomy Hx of neck surgery Hx of oophorectomy Family History Mother CAD (coronary artery disease) Father CAD (coronary artery disease) Brother CAD (coronary artery disease) Stroke Daughter Cancer Sister Dementia Denies family history of Diabetes Clotting disorder Chronic kidney disease (CKD) Suicide Anesthesia complication Bleeding disorder Lung disease Social History Smoking and tobacco status: former smoker Quit status (tobacco): has quit using tobacco Year quit tobacco: 2009 Former quit date comment: 2ppd x 42 years Second hand smoke exposure: No Smoking risk assessment/counseling performed?: No Alcohol intake: never Substance/Drug Use: never Data Anesthesia Cardiac Studies: Echocardiogram 03/23/22 Echocardiogram Ultrasound 12/16/19 Sestamibi Stress Test (Cardiology) 03/17/21 Cardiac Event Monitor 11/28/19
[2022-09-15] MEDS: ceFAZolin 2,000 MG in sodium chloride 0.9% (plus) 50 ML 100 MG IV (07:56)
--- NOTE | 2022-09-15 08:58 | P.OP_ITS ---
Operative Report Date of procedure: September 15, 2022 Pre-op diagnosis: Right ring finger triggering Post-op diagnosis: Right ring finger triggering Post-op findings: Thickening of the A1 jose luis right ring finger Procedure done: Right trigger finger release Implants: None Pathology: none sent Surgeon: Karolina Sims [facility] Technical Officer: None Anesthesia: MAC and General (Per LMA, ASA 3) Estimated blood loss (mL): 1 Tourniquet time (min): 15 (At 250 mmHg) IV fluids (mL): 700 Urine output (mL): 0 (No Worrell) Complications: None Findings: Significant inflammation about the A1 jose luis with thickening Condition: stable Disposition: PACU (Then return to same-day surgery for discharge to home) Brief History: This 72-year-old woman presented to my office complaining of right hand pain and significant triggering in the right ring finger. Previously, she had trigger finger release to the right middle finger. She has been trying exercises as well as soaks to help with the pain. She has also been given hydrocodone elsewhere. After discussion with the patient, she wished to proceed with operative intervention in the form of right trigger finger release of the ring finger. Risks and complications were discussed with her. Consents were signed and questions were answered. Procedure: Patient was brought to the operating theater. She was placed on the operating room table. The patient underwent a general anesthetic status per LMA, ASA 3. She tolerated it well. The patient was administered Ancef 2 g. A tourniquet was placed high on the arm prior to prepping and draping. Patient was prepped with DuraPrep and the arm was draped free. The tourniquet time was 15 minutes at 250 mmHg. Surgical pause was performed prior to commencement of the surgical procedure. At the time of the surgical pause we identified the site and side of surgery. We also identified the patient's identity and appropriate administration of IV antibiotics. Following the surgical pause, an incision was made along the distal palmar crease beneath the ring finger. Dissection continued through the skin to the subcutaneous tissues using a scalpel. Blunt dissection was then utilized to spread soft tissues and allow access to the A1 jose luis. It was then incised longitudinally and sharply using a knife. This was accomplished without difficulty and atraumatically. Once the A1 jose luis was released, tendon were brought up out of the wound and evaluated. There were no gross masses on the tendons. Tendons were returned to normal position. We then irrigated the wound and subsequently closed it with 3-0 nylon with an interrupted mattress type suture. Following closure of the wound, the wound was injected with local anesthetic into the subcutaneous tissues. Sterile dressing was then placed consisting of Dermabond, OpSite, fluffed fluffs, sterile soft roll, and an Quentin wrap. The patient was returned to recovery in satisfactory condition. She will be discharged home to follow-up with me in the office. There were no complications and no specimens. Related Problem List Diagnoses (1) Acquired trigger finger of right ring finger:
[2022-09-15] MEDS: HYDROcodone-acetaminophen 5-325 mg Tablet 1 TAB PO (09:28)
--- NOTE | 2022-09-15 09:40 | ANE.PACU2 ---
Inpatient post-anesthesia follow up: Airway intact: Yes Vital signs: Temperature 96.9 F Pulse Rate 65 Respiratory Rate 16 Blood Pressure 119/60 Pulse Oximetry 94 Oxygen Delivery Me thod Room Air Oxygen Flow Rate 6 Fraction of Inspir ed Oxygen Hydration adequate: Yes Nausea and vomiting: No Pain level: 1 Mental status: Baseline
== END 2022-09-15 09:35 | disposition home or self-care (01) ==
PROVIDERS: PCP Family Medicine; Visit Provider Specialist
PROC: (CPT 26055; principal; 2022-09-15 08:10)
DX: M65.341 Trigger finger, right ring finger (principal); J44.9 Chronic obstructive pulmonary disease, unspecified; I25.10 Atherosclerotic heart disease of native coronary artery without angina pectoris; I10 Essential (primary) hypertension; Z79.82 Long term (current) use of aspirin; E78.2 Mixed hyperlipidemia; Z87.891 Personal history of nicotine dependence
CPT/HCPCS: 26055; J0131; J0330; J0690; J2250; J2405; J2704; J3010; J3490; J7030

== ENCOUNTER → 2022-09-27 08:57 | Outpatient (BNVA) | payer MEDICARE, MEDICAID, SELFPAY | PROVIDERS: PCP Family Medicine; Visit Provider Specialist | DX: M65.341 Trigger finger, right ring finger (principal) | CPT/HCPCS: 99024 ==

== ENCOUNTER → 2022-10-12 08:54 | Outpatient (BNVA) | payer MEDICARE, MEDICAID, SELFPAY | PROVIDERS: PCP Family Medicine; Visit Provider Physician Assistant | DX: Z01.818 Encounter for other preprocedural examination (principal); M48.062 Spinal stenosis, lumbar region with neurogenic claudication | CPT/HCPCS: 36415; 80053; 81001; 85025; 99214 ==

== ENCOUNTER → 2022-10-24 09:28 | Outpatient (BNVA) | payer MEDICARE, MEDICAID, SELFPAY | PROVIDERS: PCP Family Medicine; Visit Provider Clinical Nurse Specialist Adult Health | DX: Z01.818 Encounter for other preprocedural examination (principal) | CPT/HCPCS: 81000 ==

== ENCOUNTER 2022-10-30 11:51 | Inpatient (IN) | payer MEDICARE, MEDICAID, SELFPAY ==
[2022-10-27 14:48] VITALS: BMI 25.4
[2022-10-30] VITALS (25 sets, daily range): BP systolic 79–143; BP diastolic 45–83; PULSE 65–94; RESP 12–19; TEMP 36.2–37.1; O2SAT 91–100
--- NOTE | 2022-10-30 | XR_ITS ---
WS: [id number] Exam: XR lumbar spine 1V [id number] Date/Time of Exam: 10/30/2022 12:00 AM Reason For Exam: L2-pelvis instrumented fusion Comparison 08/17/2022. There is posterior fusion of the spine extending from L2-S1 with pedicle screws and posterior rods. A disc spacer is noted at L5-S1. Screws bridge the bilateral SI joints. The fusion is in satisfactory alignment. IMPRESSION: 1. Posterior fusion extending from L2-S1 in satisfactory alignment.
[2022-10-30] MEDS: sodium chloride 0.9% 1,000 ML 30 ML IV (06:29)
[2022-10-30] MEDS: methadone 10 mg Tablet PO (06:30)
--- NOTE | 2022-10-30 06:36 | W.PM.OPSUD ---
Surgery/Procedure H&P Update DATE OF PROCEDURE: October 30, 2022 DATE H&P PERFORMED: 10/12/22 H&P UPDATE INFORMATION: I have reviewed H&P completed within last 30 days, I have examined patient prior to procedure and No changes to prior documentation PREOP DIAGNOSIS: Degenerative disc disease lumbar spine, bilateral sacroiliac joint arthriti PLANNED PROCEDURE: Operation Date: 10/30/22 07:00 Proposed Procedures p Sacroiliac Joint Fusion SI Joint Fusion(Bilateral) [place] [id number]: posterior lumbar, L2-pelvis with bilat SI joint Fusion,41398: L2,L3,L4,L5-SI, 92793: instrumentation 67174: lumbo pelvis fixation , 63612: lumbo pelvis fixation , 51261:navigation, 14413: SI joint fusion. lumbo pelvis fixation lumbo pelvis fixation M48.062: Lumbar stenosis with neurogenic claudication,M51.36: DDD (degenerative disc disease), lumbar(Not Applicable) - Toro Maloney DO
--- NOTE | 2022-10-30 06:53 | ANES.PREANE2 ---
Pre-Anesthetic Assessment Height/Weight: Height 1.63 m Weight 67.132 kg Temp Pulse Resp BP Pulse Ox O2 Del Method 97.6 F 68 16 115/67 95 Room Air 10/30/22 06:32 10/30/22 06:32 10/30/22 06:32 10/30/22 06:32 10/30/22 06:32 10/30/22 06:32 Preop Diagnosis: Degenerative disc disease lumbar spine, bilateral sacroiliac joint arthriti Operation Date: 10/30/22 07:00 Proposed Procedures p Sacroiliac Joint Fusion SI Joint Fusion(Bilateral) - [place] [id number]: posterior lumbar, L2-pelvis with bilat SI joint Fusion,91717: L2,L3,L4,L5-SI, 72654: instrumentation 24350: lumbo pelvis fixation , 07737: lumbo pelvis fixation , 59448:navigation, 64244: SI joint fusion. lumbo pelvis fixation lumbo pelvis fixation M48.062: Lumbar stenosis with neurogenic claudication,M51.36: DDD (degenerative disc disease), lumbar(Not Applicable) - Toro Maloney DO Familial anesthetic complications: None Was Beta Joselin taken within 24 hours: Yes Was Clonidine taken within 24 hours: N/A Last intake: Intake Last Liquid Date 10/29/22 Last Liquid Time 17:30 Last Solid Date 10/29/22 Last Solid Time 17:30 Social Tobacco and No alcohol Exam alert, oriented x 3, clear to auscultation bilaterally and regular rate & rhythm Airway Dentition: other (poor dentition multiple missing) Pulmonary Asthma, Chronic Obstructive Pulmonary Disease and Sleep Apnea CV/HEM Coronary Artery Disease (SD in 1999) and Hypertension mild tVR/MVr GI Gastroesophageal Reflux Disease Metabolic Hyperlipidemia Neuropsych Cerebrovascular Accident Anesthetic Plan ASA status: 3 Anesthesia: General Risk of > 500 ml blood loss (7ml/kg in children): Yes, adequate IV access and fluids planned Medications/Allergies Home Medications Medication Instructions Recorded Confirmed Last Taken Type lisinopril 40 mg tablet 40 mg PO QAM 08/07/19 10/30/22 10/29/22 History rosuvastatin 20 mg tablet 20 mg PO BEDTIME 08/07/19 10/30/22 10/29/22 History melatonin 10 mg tablet 10 mg PO BEDTIME 11/26/19 10/30/22 10/29/22 History gabapentin 300 mg capsule 300 mg PO QID 07/21/20 10/30/22 10/30/22 History diphenhydramine HCl 25 mg capsule 25 mg PO TID PRN Allergy Symptoms 01/12/21 10/30/22 10/29/22 History (Benadryl) promethazine 25 mg tablet 25 - 50 mg PO Q8H PRN Nausea And 01/12/21 10/30/22 Unknown History Vomiting esomeprazole magnesium 40 mg 40 mg PO BEDTIME 05/10/21 10/30/22 10/29/22 History capsule,delayed release suvorexant 20 mg tablet (Belsomra) 20 mg PO BEDTIME 05/10/21 10/30/22 10/29/22 History hydrocodone 10 mg-acetaminophen 1 tab PO QID PRN Pain 7 days #40 06/23/21 10/30/22 10/30/22 04:30 Rx 325 mg tablet tabs carvedilol 25 mg tablet 25 mg PO BID 90 days #180 tabs 01/03/22 10/30/22 10/30/22 04:30 Rx chlorthalidone 25 mg tablet 25 mg PO DAILY 01/03/22 10/30/22 10/29/22 History buspirone 5 mg tablet 5 mg PO BID 01/23/22 10/30/22 10/29/22 History felodipine 10 mg tablet,extended 10 mg PO DAILY 01/23/22 10/30/22 10/29/22 History release 24 hr albuterol sulfate 90 mcg/actuation 2 inh inhalation Q4H PRN shortness 04/12/22 10/30/22 10/30/22 Rx aerosol inhaler of breath or wheezing #18 grams Intraoperative Neuromonitoring #1 ea 10/16/22 10/24/22 Unknown Rx Allergies Allergy/AdvReac Type Severity Reaction Status Date / Time cephalexin [From Keflex] Allergy ALGY-Difficulty Verified 10/30/22 06:02 Breathing codeine Allergy Unknown Verified 10/30/22 06:02 orphenadrine [From Norgesic] Allergy ADR-Itching Verified 10/30/22 06:02 Penicillins Allergy Unknown Verified 10/30/22 06:02 pentazocine [From Talwin] Allergy Unknown Verified 10/30/22 06:02 Sulfa (Sulfonamide Allergy Unknown Verified 10/30/22 06:02 Antibiotics) sulfamethoxazole Allergy ALGY-Difficulty Verified 10/30/22 06:02 [From Bactrim] Breathing tiagabine [From Gabitril] Allergy Unknown Verified 10/30/22 06:02 trimethoprim [From Bactrim] Allergy ALGY-Difficulty Verified 10/30/22 06:02 Breathing zonisamide [From Zonegran] Allergy Unknown Verified 10/30/22 06:02 Current Medications Generic Name Dose Route Start Last Admin Trade Name Freq PRN Reason Stop Dose Admin Sodium Chloride 1,000 mls @ 30 mls/hr 10/30/22 06:00 10/30/22 06:29 Sodium Chloride 0.9% IV 10/31/22 05:59 30 mls/hr .Q24H TYRONE Administration PFSH Anesthesia Medical History (Updated 10/24/22 @ 09:26 by Emir Waters NP) Abscess, neck Carotid stenosis less than 50% on 2021 doppler RM (dyspnea on exertion) Heart murmur mild mitral and tricuspid regurg History of CVA (cerebrovascular accident) no symptoms in the last year Hx of tuberculosis Hyperlipemia, mixed Hypertension Paroxysmal cardiac arrhythmia Ventricular arrhythmia Surgical History H/O neck surgery H/O: hysterectomy History of arthroplasty of right knee History of back surgery History of tonsillectomy and adenoidectomy History of tubal ligation Hx of appendectomy Hx of cholecystectomy Hx of neck surgery Hx of oophorectomy Family History Mother CAD (coronary artery disease) Father CAD (coronary artery disease) Brother CAD (coronary artery disease) Stroke Daughter Cancer Sister Dementia Denies family history of Diabetes Clotting disorder Chronic kidney disease (CKD) Suicide Anesthesia complication Bleeding disorder Lung disease Social History Smoking and tobacco status: former smoker Quit status (tobacco): has quit using tobacco Year quit tobacco: 2009 Former quit date comment: 2ppd x 42 years Second hand smoke exposure: No Smoking risk assessment/counseling performed?: No Alcohol intake: never Substance/Drug Use: never Data Anesthesia Cardiac Studies: Echocardiogram 03/23/22 Echocardiogram Ultrasound 12/16/19 Sestamibi Stress Test (Cardiology) 03/17/21 Cardiac Event Monitor 11/28/19
[2022-10-30] MEDS: vancomycin 1,000 MG in sodium chloride 0.9% 250 ML 250 MG IV (07:40)
[2022-10-30] MEDS: vancomycin 1,000 MG SDV 1000 MG XX (07:55)
[2022-10-30] MEDS: heparin, porcine 1,000 unit/mL INJ 10 mL 10000 UNIT XX (07:55)
[2022-10-30] MEDS: lidocaine-epi 1% 20 mL INJ INJECTION (07:55)
--- NOTE | 2022-10-30 11:28 | P.OP_ITS ---
Operative Report Date of procedure: October 30, 2022 Pre-op diagnosis: Preop Diagnosis Degenerative disc disease lumbar spine, bilateral sacroiliac joint arthritis, neurogenic claudication Post-op diagnosis: same Procedure done: 1. L5/S1 Interbody fusion with posterolateral fusion 2. Instrumentation L2-S1 3. Lumbopelvic fixation 4. Open Right sacral iliac fusion 5. Open Left Sacral iliac fusion 6. Cage at L5/S1 7. L5/S1 Laminectomy with facetectomies 8. L2/3 laminectomy with partial facetomies 9. L3/4 laminectomy with partial facetectomy 10. use of autograft from same incision 11. use of allograft 12. Bone marrow aspirate from right iliac crest 13. Use of computer navigation stereotactic Surgeon: Toro Maloney Satellite Dish Technician: Bassem Serna Satellite Dish Technician: The certified ophthalmic surgical assistant, Bassem Serna, REBECCA was needed for his expertise under the microscope. He was important and necessary throughout the procedure to complete in a safe and timely manner. He assisted with patient positioning prepping and draping tissue retraction suctioning of the operative field protection of the dural sac and tissue closure Estimated blood loss (mL): 950 Procedure: 1. L5/S1 Interbody fusion with posterolateral fusion 2. Instrumentation L2-S1 3. Lumbopelvic fixation 4. Open Right sacral iliac fusion 5. Open Left Sacral iliac fusion 6. Cage at L5/S1 7. L5/S1 Laminectomy with facetectomies 8. L2/3 laminectomy with partial facetomies 9. L3/4 laminectomy with partial facetectomy 10. use of autograft from same incision 11. use of allograft 12. Bone marrow aspirate from right iliac crest 13. Use of computer navigation stereotactic Patient is brought to the operative suite. After undergoing anesthesia, the patient had neuro monitoring attached. Patient was then placed in the prone position on the Alhaji table. All areas of impingement were well-padded. Patient was then prepped and draped in the normal sterile fashion. Skin incision was then made over the L L2 down to S1. Subperiosteal dissection was made out to the transverse processes of L2 bilaterally, L3 bilaterally, L4 bilaterally, and L5 bilaterally, as well as the sacral ala's bilaterally and down into the sacrum. Next attention was brought to the [employer] bone marrow aspirate kit was used to aspirate bone marrow aspirate. This was done by using the sharp probe to open up the bone. Aspiration was performed and then the blunt probe was then used to dissect down to through the bone tunnel. An aspirating well drawn back a millimeter approximately 20 cc of bone marrow aspirate was used. Admixed with the allograft and autograft bone that will be used. She was brought to placing the fiducial this was done by placing 2 pins into the right iliac crest. Both these pins were removed at the end of the case. The pins were placed followed by attaching the fiducial. The C-arm was brought in and spun around the patient information from serum was then placed to computer in order to allow for using computer navigated screws. The technique for placing the pedicle screws was to use a drill followed by the gearshift probe linked to computer navigation. Followed by the ball probe to feel the superior inferior medial lateral rivera of the pedicles. Then placement of the screws linked to computer navigation. Was done at each pedicle. Screws were placed at L2 bilaterally, L3 bilaterally, L4 bilaterally, L5 bilaterally, as well as S1 bilaterally. Next attention was brought to placing the sacral ala iliac screws. This was done in order to attach the long construct of the lumbar spine into the pelvis the lumbopelvic fixation. The screws were placed by using the gearshift probe to go through the sacral ala across the SI joint and into the iliac crest once this was done a pedicle feeler was used. Followed by placing a 9.5 x 80 mm screw. The screws were placed on both the right and left side. Next attention was brought to doing the open SI fusion. This was done by again using the gearshift probe crossing the SI joint. Then a guidewire was placed across the SI joint followed by the drill. The SI joint was then filled with bone graft and a screw was placed across this. This was done on both the right and the left side as well. Next attention was brought to performing the laminectomy ofL5. This was done using the high-speed bur Kerrisons and curettes. Once the lamina was removed and then attention was brought to performing a partial facetectomy on the contralateral side. This was done again using the high-speed bur curettes and Kerrisons. The ligamentum flavum was taken down bilaterally from L5 to S1. Attention was then brought to the facet on the ipsilateral side. The facet was taken down. The S1 nerve was decompressed as it passed around the S1 pedicle. The laminectomy was done for purposes of decompressing the nerve as well as placement of the cage. The L5 nerve was identified as it traversed through the L5/S1 foramen. The thecal sac was identified and retracted. The L5/S1 disc base was identified. Using a knife the disc base was opened. And then sequential ernesto were placed. The first shaver was a 6 and the last shaver was a 11. Using a pituitary and down going curette the endplates were scraped and disc material was removed from the space. Once adequate decompression of the disc base was felt to be had. Osteoamp sponge was packed into the anterior aspect of the disc base. Then a size 12 cage from [employer] was placed after packing osteoamp into the cage. While placing the cage the thecal sac and S1 nerve was protected. C arm was used to ensure that the cages placed in the appropriate position. Next tension was brought to performing the laminectomy at L2-3. This was done by using rongeur taken on the spinous process of L2 and then using high-speed bur to take down the lamina and medial aspect of facet joints. The Kerrison rongeur was used to take down the remaining bone of the facet joints as well as the lamina. Ligamentum flavum was taken down from L2-L3. The L2 nerves were traced out the L2-3 foramen. The L3 nerves were traced around the L3 pedicle. Although was felt to be adequately decompressed. Next attention was brought to the L3-4 level. This has been getting some more scar tissue. Given spinous process was taken down with the rongeur high-speed bur was used to do the laminectomy and medial aspect of facet joints. Kerrison rongeur was used to take down the remaining bone at the lamina and the facets ligamentum flavum which was attached was removed then there was some scar tissue and the L3 nerves were traced out the L3-4 foramens felt to be adequate impressed and the L4 nerves were traced around the L4 pedicles and felt to be adequate decompressed. Attention was then brought to attaching the rods to the screws placed in the L2 bilaterally, L3 bilaterally L4 bilaterally L5 bilaterally and S1 bilaterally. The rods were then attached onto the iliac screws making the lumbopelvic fixation. Caps were torqued into position. Locking the construct in place. Wound was copiously irrigated and then attention was brought to decorticating the facets and transverse processes laterally. Bone that was taken down from the lamina was used along with osteoamp fibers and sponges were packed into the lateral gutters along the facet joints. This was done bilaterally. Wound was then closed in a layered fashion starting with the thoracolumbar fascia. 0-vicryl was used the sub cutaneous tissue was closed with 2-0 vicryl and skin with 4-0 monocryl. Glue was then used to seal the skin and a steril dressing was applied. Patient was then placed in the supine position. The endotracheal tube was removed and patient was transferred to the PACU in stable condition.
--- NOTE | 2022-10-30 11:48 | SUR.PHASEI ---
1148 art line removed at this time from left wrist. pressure applied. pressure dressing applied.
[2022-10-30] MEDS: fentaNYL 50 mcg/mL INJ 2mL IVP ×2 (12:03→12:18)
--- NOTE | 2022-10-30 12:42 | ANE.PACU2 ---
Inpatient post-anesthesia follow up: Airway intact: Yes Vital signs: Temperature 97.1 F Pulse Rate 71 Respiratory Rate 17 Blood Pressure 110/58 Pulse Oximetry 96 Oxygen Delivery Me thod Nasal Cannula Oxygen Flow Rate 3 Fraction of Inspir ed Oxygen Hydration adequate: Yes Nausea and vomiting: No Pain level: 1 Mental status: Baseline
[2022-10-30] MEDS: HYDROcodone-acetaminophen 10-325 mg Tablet 1 TAB PO (13:33)
[2022-10-30] MEDS: gabapentin 300 mg Capsule PO ×3 (13:34→19:55)
[2022-10-30] MEDS: lactated ringers 1,000 ML 90 ML IV ×2 (13:34→22:49)
[2022-10-30] MEDS: morphine 4 mg/mL SDV 1 mL 2 MG IVP ×3 (15:12→22:48)
[2022-10-30] MEDS: HYDROcodone-acetaminophen 10-325 mg Tablet PO ×2 (17:11→20:55)
[2022-10-30] MEDS: BuSPIRONE 10 mg Tablet 5 MG PO (17:11)
[2022-10-30] MEDS: docusate sodium 100 mg Capsule PO (17:12)
[2022-10-30] MEDS: carvedilol 25 mg Tablet PO (19:55)
[2022-10-30] MEDS: atorvastatin 40 mg Tablet 80 MG PO (19:55)
[2022-10-30] MEDS: pantoprazole DR 40 mg Tablet PO (19:55)
[2022-10-30] MEDS: diphenhydrAMINE 25 mg Capsule PO (23:52)
[2022-10-31] VITALS (11 sets, daily range): BP systolic 108–127; BP diastolic 54–66; PULSE 80–101; RESP 16–19; TEMP 36.6–38.1; O2SAT 90–97
[2022-10-31] MEDS: HYDROcodone-acetaminophen 10-325 mg Tablet PO ×4 (00:57→21:59)
[2022-10-31] MEDS: morphine 4 mg/mL SDV 1 mL 2 MG IVP ×2 (02:50→10:08)
[2022-10-31] MEDS: lisinopril 20 mg Tablet 40 MG PO (05:01)
[2022-10-31 06:08] LABS: Hematocrit 28.5 % (36-47)
--- NOTE | 2022-10-31 07:31 | P.PN_ITS ---
Subjective Subjective: POD 1 Patient resting comfortably. She indicates that she has been taking hydrocodone tens for a number of years which has not offered her much relief with surgical pain. She is requesting oxycodone. She reports back pain she has some improvement of her leg pain. Denies chest pain, shortness of breath, headaches. Vitals/I&O/Wt Last Vital Signs Temp 98.9 F 10/31/22 04:00 Pulse 85 10/31/22 04:00 Resp 18 10/31/22 04:00 BP 127/66 10/31/22 04:00 Pulse Ox 97 10/31/22 04:00 O2 Del Method Nasal Cannula 10/30/22 20:00 O2 Flow Rate 1 10/30/22 20:00 10/30/22 10/31/22 10/31/22 22:59 06:59 14:59 Intake Total 2432.5 / 4282.5 Output Total 1170 / 2070 3600 / 5670 Balance 1262.5 / 2212.5 -3600 / -1387.5 Physical Exam Narrative: Patient presents alert and oriented x3 with a good general appearance normal mood and affect. Normal coordination normal stability. Mild tenderness around the incisional site with the incision appear to be clean and dry with Hemovac intact. No signs of erythema or drainage. No signs of infection. Patient den ies any fevers or chills. 5/5 motor strength both lower extremities with negative straight leg raise bilaterally. 4/5 strength and weak in both EHLs worse on the right than the left which seems to be the L5 distribution. calves are supple no medial thigh tenderness. Pulses are 2+ at the dorsalis pedis and posterior tibial region. Good capillary refill throughout normal sensation light touch both lower extremities. Urinary Catheter Management: Worrell: Cath Placed During This Visit: yes Reason for Continuing Indwelling Catheter: Perioperative Use in Selected Surgeries Urinary Catheter Date of Insertion: 10/30/22 Urinary Catheter Time of Insertion: 07:15 Data 10/31/22 05:47 A&P Assessment and plan (1) Status post lumbar spinal fusion: At this point we will DC the hydrocodone tens and switch her to oxycodone 10 mg 1-2 PO q 4-6 hrs prn pain. We will continue the Hemovac drain until tomorrow. We will discontinue her Worrell catheter. Physical therapy to work with mobilization. No bending lifting or twisting. Encourage incentive spirometry for pulmonary toilet. public services assistant to consult for placement or home health care. Attestations Medical Necessity Statement*: SD home tomorrow Coding Level of Care Code Acute Code for Chg Fwd Diagnoses Status post lumbar spinal fusion Z98.1
[2022-10-31] MEDS: oxyCODONE 5 mg IR Tab/Cap 10 MG PO ×2 (07:46→12:03)
[2022-10-31] MEDS: BuSPIRONE 10 mg Tablet 5 MG PO ×2 (08:09→17:20)
[2022-10-31] MEDS: gabapentin 300 mg Capsule PO ×4 (08:09→19:22)
[2022-10-31] MEDS: carvedilol 25 mg Tablet PO ×2 (08:10→17:20)
[2022-10-31] MEDS: docusate sodium 100 mg Capsule PO ×2 (08:10→17:20)
[2022-10-31] MEDS: chlorthalidone 25 mg Tablet PO (08:13)
--- NOTE | 2022-10-31 09:38 | PC.CHAP ---
Pastoral Care Encounter/Spiritual Assessment Type of Contact [] Declined utility appraiser visit [] Patient/Family/Request visit [] Outpatient visit [] Follow-up visit [] Physician referral [] Code/Alert [x] Routine visit [] Staff referral [] Actively dying [] Patient sleeping [] Family support [] [] Out of room [] Palliative care [] [] Receiving care in room [] Pre-surgical visit [] Trauma [] Long length of stay [] ICU visit [] Other: Relational/Emotional Strength [x] Patient feels connected with others/family/visitors/staff [] Distress [] Loneliness/isolation [] Abandonment Spirituality of Patient [x] Person of [place] [] Attends Zoroastrianism of their [place] [x] Believes in Prayer [] Reads Bible or Mormon materials [] There are Spiritual issues to be addressed Well Digger Interventions [x] Prayer [x] Active listening [] Non-anxious presence [x] Spiritual/emotional support [] Crisis/trauma care [] Spiritual counseling [] Bereavement support [] Provided bereavement packet [] Provided Bible/devotional materials [] Provided toy/stuffed animal, coloring book to patient or family member [] Provided Communion [] Anointing/[place] [] Salvation [x] Completed spiritual assessment [] Other: Impact on Illness or Injury [] Angry [] Fearful [] Anxious [] Often cries [] Exhaustion [] Unable to work [] Unable to attend congregational [] Unable to walk/stand [] Unable to read [] Unable to drive [] Unable to eat/drink [] Unable to sleep [] Unable to be with family [] Patient intubated [] Other: Summary Time spent with patient 5 min
[2022-10-31] MEDS: lactated ringers 1,000 ML 90 ML IV ×2 (10:15→19:22)
[2022-10-31] MEDS: ketorolac 30 mg/mL INJ IVP ×2 (14:08→19:23)
--- NOTE | 2022-10-31 15:11 | PC.NURSE ---
answered call light to find pt sitting on side of the bed, stating hemavac came out while she was using the bedside commode. Tip intact. Notified Dr. Maloney, no new orders.
[2022-10-31] MEDS: atorvastatin 40 mg Tablet 80 MG PO (19:22)
[2022-10-31] MEDS: diphenhydrAMINE 25 mg Capsule PO (19:22)
[2022-10-31] MEDS: pantoprazole DR 40 mg Tablet PO (19:22)
--- NOTE | 2022-10-31 19:29 | PC.NURSE ---
Patient did not have bautista catheter or hemovac upon my arrival on shift.
[2022-11-01] VITALS: BP 94/54; PULSE 76; RESP 18; TEMP 36.9; O2SAT 88
[2022-11-01] MEDS: HYDROcodone-acetaminophen 10-325 mg Tablet PO ×2 (01:52→06:14)
[2022-11-01] MEDS: ketorolac 30 mg/mL INJ IVP ×2 (01:52→08:30)
[2022-11-01 04:00] VITALS: BP 97/59; PULSE 78; RESP 19; TEMP 36.7; O2SAT 90
[2022-11-01] MEDS: lactated ringers 1,000 ML 90 ML IV (06:16)
--- NOTE | 2022-11-01 06:32 | PM.PN ---
Subjective Subjective: POD 2 Patient resting comfortably. She has been up walking states her legs are feeling better. She is requesting tramadol for pain as she states that helps better than morphine. She also indicated that she has hydrocodone at home. She denies any shortness of breath, chest pain, headaches. Vitals/I&O/Wt Last Vital Signs Temp 98.0 F 11/01/22 04:00 Pulse 78 11/01/22 04:00 Resp 19 H 11/01/22 04:00 BP 97/59 11/01/22 04:00 Pulse Ox 90 11/01/22 04:00 O2 Del Method Room Air 11/01/22 00:00 O2 Flow Rate 1 10/30/22 20:00 10/31/22 10/31/22 11/01/22 14:59 22:59 06:59 Intake Total 1480 / 1480 1060.5 / 2540.5 981 / 3521.5 Output Total 800 / 800 Balance 680 / 680 1060.5 / 1740.5 981 / 2721.5 Physical Exam Narrative: Patient presents alert and oriented x3 with a good general appearance normal mood and affect. Normal coordination normal stability. Mild tenderness around the incisional site with the incision appear to be healing nicely. No signs of erythema or drainage. No signs of infection. Patient denies any fevers or chills. 4/5 motor strength both lower extremities with negative straight leg raise bilaterally. Calves are supple no medial thigh tenderness. Pulses are 2+ at the dorsalis pedis and posterior tibial region. Good capillary refill throughout normal sensation light touch both lower extremities. Urinary Catheter Management: Worrell: Cath Placed During This Visit: yes Reason for Continuing Indwelling Catheter: Perioperative Use in Selected Surgeries Urinary Catheter Date of Insertion: 10/30/22 Urinary Catheter Time of Insertion: 07:15 Data 10/31/22 05:47 A&P Assessment and plan (1) Status post lumbar spinal fusion: Continue to mobilize with physical therapy. We will discharge home today. We will have her follow-up in the office in 1 week's time. Encourage her to take home the incentive spirometer for pulmonary toilet. No bending lifting or twisting. Per her request will discharge home with tramadol she has hydrocodone at home as well she will use the tramadol for breakthrough. Attestations Medical Necessity Statement*: Discharge home today Coding Level of Care Code Acute Code for Chg Fwd Diagnoses Status post lumbar spinal fusion Z98.1
[2022-11-01 07:26] VITALS: BP 120/68; PULSE 82; RESP 16; TEMP 36.6; O2SAT 95
[2022-11-01] MEDS: carvedilol 25 mg Tablet PO (08:31)
[2022-11-01] MEDS: docusate sodium 100 mg Capsule PO (08:31)
[2022-11-01] MEDS: chlorthalidone 25 mg Tablet PO (08:31)
[2022-11-01] MEDS: BuSPIRONE 10 mg Tablet 5 MG PO (08:31)
[2022-11-01] MEDS: gabapentin 300 mg Capsule PO (08:31)
[2022-11-01] MEDS: lisinopril 20 mg Tablet 40 MG PO (08:51)
[2022-11-01 09:04] VITALS: PULSE 84; RESP 18; O2SAT 91
[2022-11-01 10:05] VITALS: PULSE 84; RESP 18; O2SAT 91
--- NOTE | 2022-11-02 14:13 | P.DS_ITS ---
Discharge Providers Date of Admission: 10/30/22 11:51 Date of Discharge: November 01, 2022 Attending Provider at Admission: Toro Maloney DO Attending Provider at Discharge: Toro Maloney DO Primary Care Provider: Raz Hooks MD Diagnoses at Discharge Discharge Diagnosis (1) Status post lumbar spinal fusion: Status: Acute Physical Exam Urinary Catheter Management: Worrell: Cath Placed During This Visit: yes Reason for Continuing Indwelling Catheter: Perioperative Use in Selected Surgeries Urinary Catheter Date of Insertion: 10/30/22 Urinary Catheter Time of Insertion: 07:15 Discharge Data Studies Completed and Pending Completed Studies During Hospitalization Category Date Time Status XR lumbar spine 1V 98245 Routine Exams 10/30/22 Completed Laboratory Results Hgb 9.30 g/dL (11.27-16.99) L 10/31/22 05:47 Hct 28.5 % (36-47) L 10/31/22 05:47 Blood Type A Negative 10/30/22 06:18 Rho(D) Type Negative 10/30/22 06:18 Antibody Screen Negative 10/30/22 06:18 Crossmatch See Detail 10/30/22 06:18 Vitals Last Vital Signs Temp 97.8 F 11/01/22 07:26 Pulse 84 11/01/22 10:05 Resp 18 11/01/22 10:05 BP 120/68 11/01/22 07:26 Pulse Ox 91 11/01/22 10:05 O2 Del Method Room Air 11/01/22 09:04 O2 Flow Rate 1 10/30/22 20:00 Discharge Plan Discharge Patient Disposition: Home Health Service Condition: Stable Prescriptions: New tramadol 50 mg tablet 50 mg PO Q6H PRN (Reason: Post Operative pain) Qty: 30 0RF Continued chlorthalidone 25 mg tablet 25 mg PO DAILY carvedilol 25 mg tablet 25 mg PO BID 90 Days Qty: 180 3RF Rx Instructions: must administer with a meal/food albuterol sulfate 90 mcg/actuation HFA aerosol inhaler 2 inh INHALATION Q4H PRN (Reason: shortness of breath or wheezing) Qty: 18 0RF hydrocodone-acetaminophen 10-325 mg tablet 1 tab PO QID PRN (Reason: Pain) 7 Days Qty: 40 0RF (DME) Intraoperative Neuromonitoring See Rx Instructions .Route .MEDSUPPLY Qty: 1 0RF Rx Instructions: As directed lisinopril 40 mg tablet 40 mg PO QAM rosuvastatin 20 mg tablet 20 mg PO BEDTIME melatonin 10 mg Tablet 10 mg PO BEDTIME gabapentin 300 mg capsule 300 mg PO QID diphenhydramine HCl [Benadryl] 25 mg Capsule 25 mg PO TID PRN (Reason: Allergy Symptoms) promethazine 25 mg tablet 25 - 50 mg PO Q8H PRN (Reason: Nausea And Vomiting) esomeprazole magnesium 40 mg capsule,delayed release(DR/EC) 40 mg PO BEDTIME Belsomra 20 mg tablet 20 mg PO BEDTIME buspirone 5 mg Tablet 5 mg PO BID felodipine 10 mg tablet extended release 24 hr 10 mg PO DAILY Rx Instructions: Dose increased Discharge Orders: Discharge Order (Routine); Ordered 11/01/22 Ordered By: Bassem Serna Referrals: [facility] [Outside] Toro Maloney DO [Physician] - 11/09/22 2:15 pm (Please arrive 15 minutes prior to appointment.) Discharge Diet: Advance as tolerated Discharge Activity: Limit activity as instructed Patient Instructions: Tramadol (By mouth), Lumbar Spinal Fusion (GEN), Opioid Safety Activity Restrictions/Additional Instructions: Thank you for choosing [facility] for your care! The following is a list of instructions, from your provider, to follow upon your discharge to ensure you have the optimal recovery from your recent injury or surgery. Follow-up care is a mathur part of your treatment and safety. Be sure to make and go to all appointments and call your doctor if you are having problems. If you do not already have a follow-up appointment made, call Dr. Maloney's] office in the next 1-3 days to make follow up appointment for [1-2] weeks at [phone]. It is also a good idea to know your test results and keep a list of the medicines you take. Medications will be prescribed for you at your provider's discretion. These medications are to be used as instructed; if they are taken more often that prescribed they will not be refilled early and in most cases will not be refilled at all. > When a refill is needed, you should contact jose luis woodward 2-3 business days before your prescription runs out. Medications will NOT be refilled by data communications engineer providers after hours! > Many pain medications contain Tylenol (Acetaminophen). Do not consume more than 4,000 mg of Tylenol per day in total with any combination of medications. > Pain medications can cause constipation. Please use an over the counter stool softener as directed, while taking pain medications. Consult your local pharmacist with questions or recommendations on stool softeners. If constipation persists, contact our office or your primary care provider. > While under our care, you are not to receive pain medications or other controlled substances from any other provider unless our office is notified and approves. Any attempts to do so will result in refusal to prescribe any further pain medications and possible dismissal from our practice. ? Walking is essential for the healing process after surgery. We would like you to slowly advance your walking. This should be done on relatively flat clear ground (inside or out) or can be done on a treadmill. Remember this goal does not have to happen all at once, slowly increase your distance and duration. This can be broken into more more than one walk per day as tolerated. Patients who walk as directed after surgery rarely require Physical Therapy. In the unlikely event this issue arises your provider will direct hospital staff to make the appropriate arrangements. ? No lifting over 5 pounds {a gallon of milk) or bending/twisting until further notice. Each of these activities places an unnecessary amount of stress onto the body and can impede the delicate healing process. > Instead of bending at the waist, keep your back straight and bend at the knees. > Instead of twisting your torso, keep your back straight and turn your entire body with your feet. ? You may sleep in any position which makes you comfortable. Many patients find comfort sleeping in a reclining chair. It is not abnormal to have difficulty sleeping for the first several weeks following your surgery. We recommend trying Benadry! or Tylenol PM as directed to help with your sleeping difficulties. Both medications are over the counter and available without prescription. ? NO SMOKING!!! Smoking dramatically increases the probability of developing postoperative wound infections. ? Common complaints after lumbar and/or thoracic spine surgery include, but are not limited to: numbness and/or tingling in the legs, pain around the incision and surrounding tissues, muscle spasms, or stiffness of the middle to low back. Contact our office if these symptoms persist or if an acute change occurs. ? No driving for the first 3-5days, and not while taking narcotics until seen at your follow-up appointment and cleared. There are no restrictions for riding on short trips, however if you take a longer trip, arrangements should be made to make regular stops to get out of the vehicle and stretch . ? Swelling is an unfortunate event that will take place with any surgery and is the primary source of your postoperative discomfort. While walking and regular approved activities helps control inflammation, there are additional steps you can take to minimize swelling. > Place ice over the surgical site and surrounding tissue for twenty minutes, followed by applying a low/medium heat (heating pad) for an additional twenty minutes every 1-2 hours as needed for painrelief. > You may use of over the counter anti-inflammatory medications (Ibuprofen, Motrin, Aleve, Advil, etc) as directed on the package label. These types of medicines will significantly reduce the amount of discomfort you experience after surgery from swelling. It should be noted that if you have and allergy to any of these medications, or a history of ulcers or kidney disease you should consult you primary care provider prior to starting these medications. Discharge Attestations Time Spent in Discharge Care*: less than 30 min Quality Metrics Clinical Quality Measures [ No reported AMI, CVA or VTE this stay] Coding Level of Care Code Acute Code for Chg Fwd Diagnoses Status post lumbar spinal fusion Z98.1
== END 2022-11-01 10:00 | disposition home health service (06) | DRG 455 ==
LOC: MEDSURG 11:54
PROVIDERS: Admitting Provider Orthopaedic Surgery; PCP Family Medicine; Visit Provider Orthopaedic Surgery
PROC: 0SG107J Fusion of 2 or more Lumbar Vertebral Joints with Autologous Tissue Substitute, Posterior Approach, Anterior Column, Open Approach (ICD-10-PCS; CPT 27280; principal; 2022-10-30 07:00)
PROC: 0SG107J Fusion of 2 or more Lumbar Vertebral Joints with Autologous Tissue Substitute, Posterior Approach, Anterior Column, Open Approach (ICD-10-PCS; CPT 22612; 2022-10-30 07:00)
DX: M48.062 Spinal stenosis, lumbar region with neurogenic claudication (principal); M51.36 Other intervertebral disc degeneration, lumbar region; Z79.51 Long term (current) use of inhaled steroids; Z79.82 Long term (current) use of aspirin; Z86.73 Personal history of transient ischemic attack (TIA), and cerebral infarction without residual deficits; Z86.11 Personal history of tuberculosis; E78.2 Mixed hyperlipidemia; I10 Essential (primary) hypertension; Z96.651 Presence of right artificial knee joint; Z87.891 Personal history of nicotine dependence; M46.1 Sacroiliitis, not elsewhere classified; Z88.1 Allergy status to other antibiotic agents; Z88.5 Allergy status to narcotic agent; Z88.0 Allergy status to penicillin; Z88.2 Allergy status to sulfonamides; J44.9 Chronic obstructive pulmonary disease, unspecified; K21.9 Gastro-esophageal reflux disease without esophagitis; I25.2 Old myocardial infarction; I25.10 Atherosclerotic heart disease of native coronary artery without angina pectoris; G47.30 Sleep apnea, unspecified
CPT/HCPCS: 36415; 51702; 72020; 76000; 85014; 85018; 86850; 86900; 86920; 97116; 97161; 97530; C1713; C1762; J0131; J0330; J1100; J1170; J1200; J1644; J1885; J2250; J2270; J2371; J2405; J2704; J3010; J3370; J3490; J7030; J7050; J7120; P9045

== ENCOUNTER → 2022-11-09 14:00 | Outpatient (BNVA) | payer MEDICARE, MEDICAID, SELFPAY | PROVIDERS: PCP Family Medicine; Visit Provider Physician Assistant | DX: Z98.1 Arthrodesis status (principal); Z47.89 Encounter for other orthopedic aftercare | CPT/HCPCS: 72100; 99024 ==

== ENCOUNTER → 2022-11-16 14:06 | Outpatient (BNVA) | payer MEDICARE, MEDICAID, SELFPAY | PROVIDERS: PCP Family Medicine; Visit Provider Orthopaedic Surgery | DX: Z98.1 Arthrodesis status (principal); Z47.89 Encounter for other orthopedic aftercare | CPT/HCPCS: 99024 ==

== ENCOUNTER → 2022-12-14 13:31 | Outpatient (BNVA) | payer MEDICARE, MEDICAID, SELFPAY | PROVIDERS: PCP Family Medicine; Visit Provider Orthopaedic Surgery | DX: Z98.1 Arthrodesis status (principal); Z47.89 Encounter for other orthopedic aftercare | CPT/HCPCS: 72100; 99024 ==

== ENCOUNTER → 2023-01-18 10:17 | Outpatient (BNVA) | payer MEDICARE, MEDICAID, SELFPAY | PROVIDERS: PCP Family Medicine; Visit Provider Orthopaedic Surgery | DX: Z98.1 Arthrodesis status (principal); Z47.89 Encounter for other orthopedic aftercare | CPT/HCPCS: 72100; 99024 ==

== ENCOUNTER 2023-04-13 14:53 | Outpatient (CLI) | payer MEDICARE, MEDICAID, SELFPAY ==
--- NOTE | 2023-04-13 15:45 | CT_ITS ---
WS: [id number] LDCT LUNG CANCER SCREENING HISTORY: cancer screening TECHNIQUE: Axial imaging performed from the apices to 1 cm below the costophrenic angles. Coronal and sagittal reformats are submitted with axial MIP series. All CT scans at [facility] use at least one of these dose optimization techniques: automated exposure control; mA and/or kV adjustment per patient size (includes targeted exams where dose is matched to clinical indication); or iterativ e reconstruction. DLP: 52.41 mGy.cm DIvol: Mean CTDIvol: 0.90 (mGy) COMPARISON: 03/17/2022 Diagnostic quality: Satisfactory Lungs: Tiny pleural tag in the posterior LEFT upper thorax. There is a noncalcified 5 mm nodule in th e medial RIGHT lower lobe which is stable since 2012. No mass or pneumonia. No endobronchial lesions. Heart: Normal size heart with no pericardial effusion.. Other findings: Pulmonary artery is dilated to 3.8 cm. Mild atherosclerosis aorta. No adenopathy. Mod erate coronary artery calcifications. Prior gastric surgery. Cervical thoracic fusion hardware. IMPRESSION: CT/CT lung screening [id number] LUNG-RADS: 2S-Benign Appearance or Behavior with Significant Findings FOLLOW UP: 12 Month: Continue annual screening with LDCT OTHER FINDINGS (S MODIFIER): Pulmonary hypertension. Dilated pulmonary artery.
== END 2023-04-13 14:54 | disposition home or self-care (01) ==
LOC: RAD 14:53
PROVIDERS: PCP Family Medicine; Visit Provider Internal Medicine Pulmonary Disease
DX: Z12.2 Encounter for screening for malignant neoplasm of respiratory organs (principal); Z87.891 Personal history of nicotine dependence; I27.20 Pulmonary hypertension, unspecified; I28.8 Other diseases of pulmonary vessels; R91.1 Solitary pulmonary nodule
CPT/HCPCS: 71271

== ENCOUNTER 2023-10-17 14:25 | Outpatient (CLI) | payer MEDICARE, MEDICAID, SELFPAY ==
--- NOTE | 2023-10-17 14:37 | MM_ITS ---
WS: [id number] BILATERAL 3D TOMOSYNTHESIS DIGITAL SCREENING MAMMOGRAPHY WITH CAD CLINICAL INFORMATION: SCREENING HISTORY: Screening mammogram. No current complaints. COMPARISON: 2022 TECHNIQUE: Bilateral CC and MLO views. FINDINGS: Scattered fibroglandular densities bilaterally. No suspicious focal mass, asymmetry, calcifications, or architectural distortion. No evidence of malignancy. Incidental punctate calcifications bilaterall y. MM/[place] [id number] IMPRESSION: BI-RADS: 2-Benign FOLLOW UP: 1 Year Follow-up Recommend return to annual screening mammography.
== END 2023-10-17 14:26 | disposition home or self-care (01) ==
LOC: RAD 14:26
PROVIDERS: PCP Family Medicine; Visit Provider Family Medicine
DX: Z12.31 Encounter for screening mammogram for malignant neoplasm of breast (principal)
CPT/HCPCS: 77063; 77067

== ENCOUNTER → 2024-03-20 10:48 | Outpatient (BNVA) | payer MEDICARE, MEDICAID, SELFPAY | PROVIDERS: PCP Family Medicine; Visit Provider Podiatrist Foot & Ankle Surgery | DX: L60.8 Other nail disorders (principal) | CPT/HCPCS: 11750 ==

== ENCOUNTER → 2024-05-19 14:14 | Outpatient (BNVA) | payer MEDICARE, MEDICAID, SELFPAY | PROVIDERS: PCP Family Medicine; Visit Provider Podiatrist Foot & Ankle Surgery | DX: L60.3 Nail dystrophy (principal) | CPT/HCPCS: 99213 ==

== ENCOUNTER → 2024-06-09 12:47 | Outpatient (BNVA) | payer MEDICARE, MEDICAID, SELFPAY | PROVIDERS: PCP Family Medicine; Visit Provider Podiatrist Foot & Ankle Surgery | DX: L60.0 Ingrowing nail (principal); L03.032 Cellulitis of left toe | CPT/HCPCS: 99214 ==

== ENCOUNTER 2024-08-19 13:04 | Outpatient (CLI) | payer MEDICARE, MEDICAID, SELFPAY ==
--- NOTE | 2024-08-19 13:10 | US_ITS ---
WS: [id number] THYROID ULTRASOUND HISTORY: THYROID NODULE COMPARISON: 03/28/2021 Right lobe: 1.2 cm x 1.4 cm x 3.3 cm (w x ap x l). Volume: 2.5 cm3. Mild heterogeneity and normal sized RIGHT thyroid. No discrete nodule identified. Left lobe: 1.0 cm x 1.4 cm x 3.4 cm (w x ap x l). Volume: 2.3 cm3. Normal size thyroid. Spongiform cyst mid LEFT thyroid 0.5 x 0.4 x 0.9 cm. No solid nodule or suspicious nodule. No echogenic foci. Isthmus: 0.2 cm. US/US thyroid [id number] IMPRESSION: 1. TI-RADS 2; spongiform nodule LEFT thyroid. No biopsy necessary. 2. No RIGHT thyroid nodule.
== END 2024-08-19 13:05 | disposition home or self-care (01) ==
LOC: RAD 13:05
PROVIDERS: PCP Family Medicine; Visit Provider Family Medicine
DX: E04.1 Nontoxic single thyroid nodule (principal)
CPT/HCPCS: 76536